=== PATIENT | male | born 1935 | race Caucasian/White ===

== ENCOUNTER 2017-09-27 17:49 | Emergency (ER) | payer MEDICARE, OTHER, SELFPAY ==
[2017-09-27 17:50] VITALS: BP 124/86; PULSE 73; RESP 18; TEMP 36.6; O2SAT 98; BMI 25.7
--- NOTE | 2017-09-27 17:52 | RAD_ITS ---
STUDY: X-RAY - RIGHT HAND, ATTENTION MIDDLE FINGER REASON FOR EXAM: Male, 82 years old. Trauma TECHNIQUE: 3 view(s) of the finger were obtained. COMPARISON: None. FINDINGS: No definite acute abnormality. Degenerative changes of the proximal and distal interphalangeal joints. Possible old ununited fracture of the dorsal base of the distal phalanx. 6 mm density overlying the tip of the finger could be small hematoma or blister. RAD/Finger(s) Min 2 Views IMPRESSION: No acute fractures or dislocation. Electronically Signed: Jakub Brandon MD at 18:40 EDT , Service support ,
[2017-09-27 19:25] VITALS: RESP 14
--- NOTE | 2017-09-27 19:25 | ED.VISSUMM ---
- ER Visit Summary Date of Service: 09/27/17 Chief Complaint: Right middle finger injury History of Present Illness: The patient is a 82 M presenting with injury to his right middle finger. He states he caught it between two barn beams. He has a skin avulsion/laceration to the right middle finger pad. Last tetanus was 12 years ago. He denies other complaints. He is on aspirin and Plavix. He is ambidextrous. Physical Examination: Vitals are stable. Patient is afebrile. Alert no acute distress. HEENT exam is unremarkable. Lungs are clear and equal bilaterally. Heart is regular rate and rhythm. Extremities right middle finger distal skin avulsion, 1 cm laceration to the finger pad, tendon function is intact. Active full range of motion. Skin is warm and dry. No focal neurologic deficit. Remainder of exam is unremarkable. Emergency Department Course and Treatment: Patient is given tetanus IM. Wound was irrigated. Anesthetized with lidocaine. 1, 5-0 simple suture was placed. Advised wound care instructions. Advised to follow-up with primary care physician. Advised return to ED if worsening complaints. Disposition: Discharge home Impression: Right middle finger skin avulsion, laceration, laceration repair This note was generated with [employer] dictation software. It may contain incorrect words, spelling, and punctuation that were not noted in review of the chart prior to signing ED Disposition - Plan for ED Patient: Chief Complaint: Laceration Instructions: ED Laceration Hand Referrals: Justin Leavitt MD [Primary Care Provider] -
--- NOTE | 2017-09-27 19:29 | ED.DEP ---
ED Disposition - Plan for ED Patient: Chief Complaint: Laceration Instructions: ED Laceration Hand Referrals: Justin Leavitt MD [Primary Care Provider] -
[2017-09-27] MEDS: Diphth,Pertuss(Acell),Tet Vac 0.5 ML Vial IM (19:46)
== END 2017-09-27 20:46 | disposition home or self-care (01) ==
LOC: ED 19:45
PROVIDERS: Emergency Provider Emergency Medicine; Family Provider Internal Medicine; PCP Internal Medicine
DX: S61.212A Laceration without foreign body of right middle finger without damage to nail, initial encounter (principal); W23.0XXA Caught, crushed, jammed, or pinched between moving objects, initial encounter; Y93.9 Activity, unspecified; Y92.9 Unspecified place or not applicable; Y99.9 Unspecified external cause status; Z23 Encounter for immunization; I11.0 Hypertensive heart disease with heart failure; I50.9 Heart failure, unspecified; Z79.02 Long term (current) use of antithrombotics/antiplatelets; Z79.82 Long term (current) use of aspirin; Z79.899 Other long term (current) drug therapy; Z85.72 Personal history of non-Hodgkin lymphomas
CPT/HCPCS: 73140; 90715; 99283

== ENCOUNTER 2018-09-02 18:17 | Inpatient (IN) | payer MEDICARE, OTHER, SELFPAY ==
[2018-03-26 15:42] VITALS: BMI 26.4
[2018-09-02] VITALS (7 sets, daily range): BP systolic 143–150; BP diastolic 73–102; PULSE 73–96; RESP 20–28; TEMP 36.5–37.3; O2SAT 92–97; BMI 27.4; BMI 26.5
--- NOTE | 2018-09-02 18:32 | EKG12_ITS ---
Test Reason : SOB Blood Pressure : / mmHG Vent. Rate : 092 BPM Atrial Rate : 101 BPM P-R Int : 000 ms QRS Dur : 112 ms QT Int : 374 ms P-R-T Axes : 000 087 019 degrees QTc Int : 462 ms Atrial fibrillation with premature ventricular or aberrantly conducted complexes Septal infarct (cited on or before 05-JUN-2015) Abnormal ECG Confirmed by ARLETTE HITCHCOCK, RENATO ([id number]), offline editor KIERSTEN INTERIANO ([id number]) on 09/03/2018 1:45:53 PM Referred By: Mary Lovell Confirmed By:RENATO CHONG MD
[2018-09-02] MEDS: Ipratropium/Albuterol Sulfate 3 ML AMPUL.NEB INHALATION (18:45)
[2018-09-02 18:58] LABS: Absolute Lymphocyte Count 0.36 X10^3/ul (0.83-4.51); Absolute Neutrophil Count 11.1 X10^3/uL (2.0-7.7); Eosinophil# 0.02 X10^3/uL; Eosinophils% 0.2 % (0-5); Hematocrit 42.5 % (40-54); Hemoglobin 14.3 g/dl (13.0-16.5); Lymphocyte # 0.36 X10^3/ul (4.0); Lymphocyte % 2.9 % (19-41); Mean Corp Hgb Conc 33.6 g/gl (32-36); Mean Corpuscular Hgb 31.9 pg (27.0-32.0); Mean Corpuscular Volume 94.9 fL (80-94); Mean Platelet Vol. 9.9 fl (6.2-12.0); Monocyte# 0.84 X10^3/uL; Monocyte% 6.8 % (0-10); Neutrophil # 11.07 X10^3/uL (2.7-7.7); Neutrophil % 89.9 % (47-70); Platelet Count 146 K/mm3 (150-450); RBC Distribution Width CV 14.6 % (11.6-14.6); RBC Distribution Width SD 50.4 fl (35.1-43.9); Red Blood Count 4.48 M/mm3 (4.6-6.2); White Blood Count 12.3 K/mm3 (4.4-11.0)
[2018-09-02 18:59] LABS: Differential Indicated SCAN CRITERIA MET; POSITIVE COUNT NO; POSITIVE DIFFERENTIAL YES; POSITIVE MORPHOLOGY NO
--- NOTE | 2018-09-02 19:00 | RAD_ITS ---
STUDY: X-RAY CHEST REASON FOR EXAM: Male, 83 years old. Cough shortness of breath TECHNIQUE: PA and lateral views of the chest. COMPARISON: June 19, 2016 FINDINGS: There is right lower lobe focal patchy opacity. There is no demonstrated pleural abnormality. Sternal cerclage wires are present from a prior sternotomy. Normal mediastinum and guillermo. Normal visualized pulmonary arteries. There is atherosclerotic calcification of the aortic arch with tortuosity. There are diffuse degenerative changes of the visualized thoracic spine. Normal visualized ribs, clavicles, and shoulders. There is no demonstrated abnormality of the visualized soft tissue structures of the upper abdomen. RAD/Chest PA and Lateral IMPRESSION: Right lower lobe patchy opacity consider pneumonia. Status post sternotomy. Chronic-appearing left lower lobe atelectasis. Electronically Signed: Marbella Lane MD at 20:28 EDT Tel , Service support ,
--- NOTE | 2018-09-02 19:03 | ED.VIS.GEN ---
History of Present Illness Chief Complaint: Shortness of Breath Informant: Patient Onset: Weeks Context: Gradual Onset Timing: Intermittent Current Severity: Moderate Maximum Severity: Severe Narrative: Patient presents to the emergency department with cough and shortness of breath. Patient said the symptoms for approximately the past 3 weeks. He recently traveled to [place] on a cruise. He states while there, he began to have a mild sore throat and cough. Since being back, his cough is gotten worse. He initially went to an outside emergency department at [facility]. He states that he had an x-ray which was normal. He was treated with doxycycline. He felt like his symptoms are getting worse. He followed up with a nurse practitioner and was placed on Augmentin. He states he finished it 2 days ago. Since then, he is had worsening cough. Today, he began to have a fever, chills, myalgias. Patient has a history of lymphoma. He is currently on a clinical trial of a chemotherapeutic that he takes orally once a day. He has been on this for 19 months. He is on Eliquis for history of atrial fibrillation. He denies any chest pain. Prior similar symptoms: Yes Recent Illness/Hospitalization: Yes Past Medical History - Allergies and Home Meds Allergies/Adverse Reactions: Allergies ramipril Allergy (Verified 09/02/18 18:17) Unknown Primary Care Physician: Justin Leavitt MD [Primary Care Provider] - Prior records reviewed: Yes Surgical History: - - cabg Smoking Status: Former smoker Alcohol: None Drugs: None - Family History Maternal Family History: Family History (Last Reviewed 03/26/18 @ 16:10 by Fran Sethi MD) Father CVA (cerebral vascular accident) Mother Diabetes CHF (congestive heart failure) Other Family history of CVA Family History: Reports: Diabetes, - - mother had chf Paternal Family History: Family History (Last Reviewed 03/26/18 @ 16:10 by Fran Sethi MD) Father CVA (cerebral vascular accident) Mother Diabetes CHF (congestive heart failure) Other Family history of CVA Family History: Reports: Diabetes, - - father had a stroke Review of Systems General: Reports: Chills, Fever Eyes: Denies: Visual changes - bilaterally, Diplopia ENT: Denies: Rhinorrhea, Sore throat Cardiovascular: Denies: Chest pain, Palpitations Respiratory: Reports: Dyspnea, Cough Gastrointestinal: Denies: Abdominal pain, Nausea, Vomiting, Diarrhea, Melena, Hematochezia Genitourinary: Denies: Dysuria, Hematuria, Frequency Musculoskeletal: Reports: Myalgias Skin: Denies: Rash, Wounds Neurological: Denies: Headache, Weakness, Numbness Physical Exam Vital Signs/Narrative: Vital Signs Temp Pulse Resp BP Pulse Ox 09/02/18 18:18 97.7 F L 96 20 H 150/73 H 92 Inital Vital Signs reviewed: Yes General: Well nourished, Well developed, No Acute Distress Head: Normocephalic, Atraumatic Eyes: Perrl, EOMI ENT: Moist mucous membranes, No rhinorrhea Neck: Supple, Nontender Cardiovascular: No murmurs, Irregular Respiratory: No distress, Chest nontender, Wheezing, Decreased Air Movement Abdomen: Soft, Nontender, Nondistended, Normal bowel sounds Back: Nontender, Normal Inspection Extremities: Nontender, No edema Skin: Normal color, No rash Neurological: Alert, Oriented x3, Cranial nerves II-XII grossly intact, Normal Strength, Normal Sensation Psychological: Normal affect, Normal Mood Diagnostic/Tx/Re-eval Chest X-Ray - ED: 2 View, Right Infiltrate Clinical Impression(s) from Imaging Studies Chest X-Ray 09/02/18 19:00 IMPRESSION: Right lower lobe patchy opacity consider pneumonia. Status post sternotomy. Chronic-appearing left lower lobe atelectasis. Electronically Signed: Marbella Lane MD at 20:28 EDT Tel , Service support , Abnormal Lab Results 09/02/18 09/02/18 09/02/18 18:41 18:41 18:41 WBC 12.3 H RBC 4.48 L Hgb 14.3 Hct 42.5 MCV 94.9 H MCH 31.9 MCHC 33.6 RDW 14.6 RDW Differential 50.4 H Plt Count 146 L MPV 9.9 Immature Gran % (Auto) 0.200 Neut % (Auto) 89.9 H Lymph % (Auto) 2.9 L [place] % (Auto) 6.8 Eos % (Auto) 0.2 Baso % (Auto) 0.0 Absolute Neuts (auto) 11.1 H Absolute Lymphs (auto) 0.36 L Total Counted Not Reportable Differential Comment Sodium 138 Potassium 3.5 Chloride 103 Carbon Dioxide 28.0 Anion Gap 7 BUN 11 Creatinine 0.88 Estim Creat Clear Calc 65.67 Est GFR (MDRD) Af Amer 107 Est GFR (MDRD) Non-Af 88 BUN/Creatinine Ratio 12.6 Glucose 113 H Lactic Acid 1.7 Calcium 8.8 Total Bilirubin 0.80 AST 38 H ALT 41 Alkaline Phosphatase 110 Total Protein 7.1 Albumin 3.4 Globulin 3.7 Albumin/Globulin Ratio 0.9 Urine Color Urine Clarity Urine pH Ur Specific [place] Urine Protein Urine Glucose (UA) Urine Ketones Urine Occult Blood Urine Nitrite Urine Bilirubin Urine Urobilinogen Ur Leukocyte Esterase Urine RBC Urine WBC Ur Squamous Epith Cells Urine Bacteria Urine Mucus 09/02/18 20:10 WBC RBC Hgb Hct MCV MCH MCHC RDW RDW Differential Plt Count MPV Immature Gran % (Auto) Neut % (Auto) Lymph % (Auto) [place] % (Auto) Eos % (Auto) Baso % (Auto) Absolute Neuts (auto) Absolute Lymphs (auto) Total Counted Differential Comment Sodium Potassium Chloride Carbon Dioxide Anion Gap BUN Creatinine Estim Creat Clear Calc Est GFR (MDRD) Af Amer Est GFR (MDRD) Non-Af BUN/Creatinine Ratio Glucose Lactic Acid Calcium Total Bilirubin AST ALT Alkaline Phosphatase Total Protein Albumin Globulin Albumin/Globulin Ratio Urine Color Yellow Urine Clarity Clear Urine pH 7.0 Ur Specific [place] 1.005 Urine Protein 15 H Urine Glucose (UA) Normal Urine Ketones Negative Urine Occult Blood 10 H Urine Nitrite Negative Urine Bilirubin Negative Urine Urobilinogen Normal Ur Leukocyte Esterase Negative Urine RBC 0-5 SEEN Urine WBC 0 SEEN Ur Squamous Epith Cells 0 SEEN Urine Bacteria 0 SEEN Urine Mucus 0 SEEN - Rhythm Strip Rhythm Strip: A-fib Ectopy: PVC(s) - EKG Follow-up EKG Interpretation: No Acute Injury Pattern, Atrial Fibrillation, Non-Specific ST Changes - Medical Decision Making Patient presents to the emergency department with cough, shortness of breath, productive sputum. He has been on 2 separate antibiotics for bronchitis. Once he finished the Levaquin, his symptoms returned. Today was the first day that he had a fever. The patient is also on an oral chemotherapeutic. Sepsis work-up was pursued. Patient does have a mild leukocytosis. He was given a nebulized breathing treatment with some improvement. His chest x-ray does confirm a right lower lobe infiltrate. Lactic acid was normal. EKG was atrial fibrillation which he has a history of. At this point, I do feel the patient has effectively failed outpatient treatment. He will be started on broad-spectrum aggressive coverage given his history of immunosuppression. He will be admitted at this time. ED Disposition - Plan for ED Patient: Disposition: Acute Care Hospital [facility] Diagnosis: Pneumonia, Immunosuppressed status Referrals: Justin Leavitt MD [Primary Care Provider] -
[2018-09-02 19:13] LABS: ALB/GLOB Ratio 0.9 RATIO (0.9-2.4); AST(SGOT) 38 U/L (15-37); Alanine Aminotransfer ALT/SGPT 41 U/L (16-61); Albumin, Serum 3.4 g/dL (3.2-5.0); Alkaline Phosphatase 110 U/L (45-117); Anion Gap 7 (5-15); BUN 11 mg/dL (7-18); BUN/Creat Ratio 12.6 RATIO (10-20); Calcium,Total 8.8 mg/dL (8.5-10.1); Chloride 103 mmol/L (98-107); Creatinine, Serum 0.88 mg/dL (0.70-1.30); EST Glomerular Filtration Rate 88 mL/min (>60); Est Glom Filt Rate - Afr Amer 107 mL/min (>60); Estimated Creatinine Clearance 65.67 ml/min; Globulin 3.7 g/dL (2.2-4.2); Glucose 113 mg/dL (74-106); Potassium 3.5 mmol/L (3.5-5.1); Protein, Total 7.1 g/dL (6.4-8.2); Sodium Level 138 mmol/L (136-145)
[2018-09-02 19:17] LABS: Lactic Acid 1.7 mmol/L (0.4-2.0)
[2018-09-02] MEDS: 0.9% Normal Saline 1,000 ML 1000 ML IV (19:33)
[2018-09-02 20:15] LABS: Bacteria 0 SEEN /hpf (None Seen); Mucous, Urine 0 SEEN /hpf (<or=2+); Squamous Epithelial Cells - UA 0 SEEN /hpf (0-5); White Blood Cells 0 SEEN /hpf (0-5)
[2018-09-02 20:20] LABS: Color, Urine Yellow (Yellow); Glucose, Dipstick Normal (Normal); Ketone-Dipstick Negative (Negative); Leukocyte Esterase-Dipstick Negative /ul (Negative); Nitrite-Dipstick Negative (Negative); Occult Blood-Urine 10 /ul (Negative); Protein-Dipstick 15 mg/dl (Negative); Specific Gravity, Urine 1.005 (1.002-1.030); Urine Bilirubin Dipstick Negative (Negative); Urine Clarity Clear (Clear); Urine Urobilinogen Normal (Normal)
[2018-09-02 20:27] LABS: Red Blood Cells-Urine 0-5 SEEN /hpf (0-5)
--- NOTE | 2018-09-02 22:09 | PCM.HP.STD ---
Problem List (1) Pneumonia Status: Acute (2) Immunosuppressed status Status: Chronic (3) Family history of CVA Status: Chronic (4) Afib Status: Chronic Qualifiers: Atrial fibrillation type: chronic Qualified Code(s): I48.2 - Chronic atrial fibrillation (5) Hx of CABG Status: Chronic Comment: 2009 (6) CAD (coronary artery disease) Status: Chronic (7) Lymphoma Status: Chronic (8) Syncope Status: Resolved (9) Hyperlipidemia Status: Chronic (10) Colon polyps Status: Chronic (11) Diverticulosis Status: Chronic (12) Obstructive sleep apnea Status: Chronic (13) Mitral valve prolapse Status: Chronic History of Present Illness Date of Admission: 09/02/18 Chief Complaint: cough, SOB The patient is a 83 year old M with a past medical history of chronic atrial fibrillation, hypertension, coronary artery disease, CABG in 2009, history of PTCA/stents, mitral valve prolapse, colon polyps, diverticulosis, lymphoma, obstructive sleep apnea and hyperlipidemia who presented to the emergency department at [facility] on 09/02/2018 complaining of cough for the preceding 3 weeks and shortness of breath. He recently traveled to [place] on a cruise ship and started with a mild sore throat and cough 3 weeks ago. He was initially diagnosed with bronchitis and placed on an antibiotic. He failed to improve and he was given a course of Levaquin however he continues to worsen. His sputum is purulent and blood-tinged. He is short of breath and weak. He has had a decreased appetite but denies nausea/vomiting/diarrhea. Vital signs at presentation to the emergency room were temperature 97.7, pulse rate 96, blood pressure 150/73, respiratory rate 20 and he was 92% saturated on room air. White blood cell count is elevated at 12.3 with 90% neutrophils. Hemoglobin is 14.3 and platelets are mildly decreased at 146,000. BMP is unremarkable. Lactic acid was 1.7. LFTs are within normal limits. UA had 0 WBCs. Chest x-ray shows right lower lobe pneumonia. Streptococcal and Legionella antigens in the urine are negative. Respiratory panel is pending. Sputum was obtained and GM stain and culture has been ordered. Blood cultures x2 were sent from the emergency department. He is being admitted to a monitored bed on PCU with a diagnosis of community-acquired pneumonia in an immunocompromised individual who has failed outpatient antibiotics. Past Medical History Past Medical History (Chronic Problems): Chronic Problems (Last Reviewed 09/03/18 @ 01:59 by Mary Lovell DO) Immunosuppressed status (Chronic) Hyperlipidemia (Chronic) Colon polyps (Chronic) Diverticulosis (Chronic) Obstructive sleep apnea (Chronic) Mitral valve prolapse (Chronic) Family history of CVA (Chronic) Afib (Chronic) Hx of CABG (Chronic) 2009 CAD (coronary artery disease) (Chronic) Lymphoma (Chronic) Medical History: Medical History (Last Reviewed 09/03/18 @ 01:59 by Mary Lovell DO) Afib (Chronic) I48.91 CAD (coronary artery disease) (Chronic) I25.10 Atherosclerotic heart disease of [place] coronary artery without angina pectoris I25.10 Atrial flutter I48.92 Cardiomegaly I51.7 Hyperlipidemia E78.5 Hypertension I10 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, 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 terminal 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 Z79.899 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.[address] Allergies ramipril Allergy (Verified 09/02/18 18:17) Unknown Home Medications: Ambulatory Orders Medication Instructions Recorded Atorvastatin Calcium [Lipitor] 80 mg PO QHS 06/06/15 Furosemide [Lasix] 20 mg PO DAILY 01/01/17 acyclovir 400 mg tablet 400 mg PO BID 04/26/17 sertraline 100 mg tablet 100 mg PO DAILY 04/26/17 sulfamethoxazole 800 1 tab PO MOWEFR 04/26/17 mg-trimethoprim 160 mg tablet losartan 25 mg tablet 25 mg PO DAILY #90 tab 03/18/18 apixaban 5 mg tablet 5 mg PO BID 03/26/18 Clopidogrel Bisulfate [Clopidogrel] 75 mg PO DAILY 09/02/18 Surgical History: Surgical History (Last Reviewed 09/03/18 @ 01:59 by Mary Lovell DO) Hx of CABG (Chronic) 2009 History of thoracic surgery Z98.890 VATS procedure at [facility] December [address] 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 in [place], [place]. (Dr. Plaza) Surgical History: - - cabg in 2009 Psychiatric History: No pertinent psych hx Lives: Spouse/ Significant Other Smoking Status: Former smoker Tobacco Use: Cigars, Pipe Alcohol: Occasional Drugs: None - *Family History Maternal Family History: Family History (Last Reviewed 09/03/18 @ 02:00 by Mary Lovell DO) Father CVA (cerebral vascular accident) Mother Diabetes CHF (congestive heart failure) Other Family history of CVA History Items: Diabetes, - - mother had chf Paternal Family History: Family History (Last Reviewed 09/03/18 @ 02:00 by Mary Lovell DO) Father CVA (cerebral vascular accident) Mother Diabetes CHF (congestive heart failure) Other Family history of CVA History Items: Diabetes, - - father had a stroke Review of Systems Constitutional: Reports: Anorexia, Malaise, Weakness. Denies: Chills, Fever, Weight Change HEENT: Reports: Sore Throat - initially but this has resolved. Denies: Head Aches, Sinus Congestion, Sinus Drainage Cardiovascular: Denies: Chest Pain, Palpitations Respiratory: Denies: Cough, Shortness of breath at rest, Sputum production Gastrointestinal: Denies: Abdominal Pain, Nausea, Vomiting Genitourinary: Denies: Dysuria Musculoskeletal: Denies: Joint Pain, Joint Tenderness Skin: Denies: Rash, Wounds Neurological: Denies: Numbness, Tingling, Focal weakness Psychiatric: Denies: Anxiety, Depression, Homicidal Ideations, Suicidal Ideations Hematologic/ Lymphatic: Denies: Easy Bruising, Easy Bleeding VTE Information - Inpt Only VTE Present on Admission: No VTE Mechan Device Prophylaxis: Knee High VANDANA Hose VTE Pharm Prophylaxis ordered?: No Reason prophylaxis not ordered:: Treatment Not Indicated - Patient is on Eliquis for atrial fibrillation Patient Problems: Active and Suspected Problems (Last Reviewed 09/03/18 @ 01:59 by Mary Lovell DO) Pneumonia (Acute) - Physical Exam General: Alert, Oriented x3, Cooperative, - - looks weak HEENT: Atraumatic, PERRLA, EOMI, Normocephalic Oral: Dry Mucosa Neck: Supple, No JVD, Negative Carotid Bruits, No Nodes, No Nuchal Rigidity, Trachea Midline Lungs: Rales - both bases, - - Symmetric chest rise, no accessory muscle use, no conversational dyspnea, Cardiovascular: Normal S1, Normal S2, Irregular Rate - tele shows Aflutter, Murmur - systolic at the apex and into the left axilla, No Gallop Abdomen: Bowel Sounds Present, Soft, Non Tender, Non-Distended Extremities: No edema, No Calf Tenderness, Peripheral Pulses Normal Skin: No rashes, No breakdown Neurological: Cranial nerves II-XII grossly intact, Neuro grossly intact Psych/Mental Status: Normal Affect, Appropriate Vital Signs Temp Pulse Resp BP Pulse Ox 98.8 F 77 27 H 145/75 H 97 09/02/18 19:45 09/02/18 21:10 09/02/18 21:10 09/02/18 19:45 09/02/18 21:10 Oxygen Flow Rate (L/min) 2 Oxygen Delivery Method Nasal Cannula Weight: 191 lb 5.78 oz Body Mass Index (BMI) 27.4 Laboratory Tests Past 24 Hrs 09/02/18 09/02/18 09/02/18 18:41 18:41 18:41 WBC 12.3 H RBC 4.48 L Hgb 14.3 Hct 42.5 MCV 94.9 H MCH 31.9 MCHC 33.6 RDW 14.6 RDW Differential 50.4 H Plt Count 146 L MPV 9.9 Immature Gran % (Auto) 0.200 Neut % (Auto) 89.9 H Lymph % (Auto) 2.9 L [place] % (Auto) 6.8 Eos % (Auto) 0.2 Baso % (Auto) 0.0 Absolute Neuts (auto) 11.1 H Absolute Lymphs (auto) 0.36 L Total Counted Not Reportable Differential Comment Sodium 138 Potassium 3.5 Chloride 103 Carbon Dioxide 28.0 Anion Gap 7 BUN 11 Creatinine 0.88 Estim Creat Clear Calc 65.67 Est GFR (MDRD) Af Amer 107 Est GFR (MDRD) Non-Af 88 BUN/Creatinine Ratio 12.6 Glucose 113 H Lactic Acid 1.7 Calcium 8.8 Total Bilirubin 0.80 AST 38 H ALT 41 Alkaline Phosphatase 110 Total Protein 7.1 Albumin 3.4 Globulin 3.7 Albumin/Globulin Ratio 0.9 Urine Color Urine Clarity Urine pH Ur Specific [place] Urine Protein Urine Glucose (UA) Urine Ketones Urine Occult Blood Urine Nitrite Urine Bilirubin Urine Urobilinogen Ur Leukocyte Esterase Urine RBC Urine WBC Ur Squamous Epith Cells Urine Bacteria Urine Mucus 09/02/18 20:10 WBC RBC Hgb Hct MCV MCH MCHC RDW RDW Differential Plt Count MPV Immature Gran % (Auto) Neut % (Auto) Lymph % (Auto) [place] % (Auto) Eos % (Auto) Baso % (Auto) Absolute Neuts (auto) Absolute Lymphs (auto) Total Counted Differential Comment Sodium Potassium Chloride Carbon Dioxide Anion Gap BUN Creatinine Estim Creat Clear Calc Est GFR (MDRD) Af Amer Est GFR (MDRD) Non-Af BUN/Creatinine Ratio Glucose Lactic Acid Calcium Total Bilirubin AST ALT Alkaline Phosphatase Total Protein Albumin Globulin Albumin/Globulin Ratio Urine Color Yellow Urine Clarity Clear Urine pH 7.0 Ur Specific [place] 1.005 Urine Protein 15 H Urine Glucose (UA) Normal Urine Ketones Negative Urine Occult Blood 10 H Urine Nitrite Negative Urine Bilirubin Negative Urine Urobilinogen Normal Ur Leukocyte Esterase Negative Urine RBC 0-5 SEEN Urine WBC 0 SEEN Ur Squamous Epith Cells 0 SEEN Urine Bacteria 0 SEEN Urine Mucus 0 SEEN Assessment/Plan All Active Problems (Last Reviewed 09/03/18 @ 01:59 by Mary Lovell DO) Pneumonia (Acute) Syncope (Resolved) Impressions 1. Community-acquired pneumonia in an immunocompromised patient with lymphoma. Failed outpatient therapy with Levaquin. 2. Lymphoma 3. Coronary artery disease with history of CABG in 2009 4. Chronic atrial fibrillation 5. Chronic anticoagulation with Eliquis 6. Mitral valve prolapse 7. History of vocal cord surgery 8. Hyperlipidemia 9. History of colon polyps 10. History of diverticulosis 11. SNOYA on CPAP 12. Hypertension Urine for streptococcal antigen Urine for Legionella antigen Respiratory panel Sputum for Gram stain C&S Blood cultures ?2 Mucinex 1200 mg twice daily Aerosolized bronchodilators Incentive spirometry Since the patient failed outpatient Levaquin and is immunocompromised will start Vanco and Merrem until culture results are available Continue Eliquis MRSA nasal swab Supplemental oxygen per protocol Ambulatory pulse ox prior to DC Code Visit Inpatient E&M: [id number] Init Hosp L3
[2018-09-03] VITALS (13 sets, daily range): BP systolic 111–132; BP diastolic 45–75; PULSE 58–90; RESP 14–20; TEMP 36.5–37.5; O2SAT 93–96
[2018-09-03] MEDS: Acyclovir 200 MG Capsule 400 MG PO ×3 (00:24→22:28)
[2018-09-03] MEDS: APIXABAN 5 MG TABLET PO ×3 (00:24→22:27)
[2018-09-03] MEDS: Atorvastatin Calcium 80 MG Tablet PO ×2 (00:24→22:27)
[2018-09-03] MEDS: Ipratropium/Albuterol Sulfate 3 ML AMPUL.NEB INHALATION ×4 (00:59→20:06)
[2018-09-03 06:24] LABS: M R Staph aureus DNA By PCR Negative (Negative); Probe Check PASS; Specimen Processing Control PASS
--- NOTE | 2018-09-03 10:53 | CASEMGMT ---
SW notified patient and his that patient's Healthcare POA and Healthcare LW are not on file at [facility]. Emeli PINTO MSW
[2018-09-03] MEDS: Sertraline 100 MG Tablet PO (11:10)
[2018-09-03] MEDS: Clopidogrel Bisulfate 75 MG Tablet PO (11:10)
[2018-09-03] MEDS: guaiFENesin 1,200 MG Tablet 1200 MG PO ×2 (11:10→22:28)
[2018-09-03] MEDS: Losartan Potassium 25 MG Tablet PO (11:10)
--- NOTE | 2018-09-03 11:30 | NS ---
Per WANG Nicholas, states pt is lactose intolerant and is concerned about Ensure Enlive as ordered. Ensure Enlive is suitable for lactose intolerance. Ingredient list for Ensure Enlive provided to pt's . No further concerns at this time. Allyson Dobbs MS, RDN, LD
[2018-09-03] MEDS: Oseltamivir Phosphate 75 MG Capsule PO ×2 (11:33→22:28)
[2018-09-03] MEDS: levoFLOXacin 750 MG Tablet PO (11:33)
--- NOTE | 2018-09-03 13:52 | PCM.CONS.PUL ---
Problem List (1) Pneumonia Status: Acute Qualifiers: Pneumonia type: due to influenza A virus Laterality: right Lung location: lower lobe of lung Qualified Code(s): J11.00 - Influenza due to unidentified influenza virus with unspecified type of pneumonia (2) Immunosuppressed status Status: Chronic (3) Colon polyps Status: Chronic (4) Diverticulosis Status: Chronic (5) Obstructive sleep apnea Status: Chronic (6) Mitral valve prolapse Status: Chronic (7) Family history of CVA Status: Chronic (8) Afib Status: Chronic Qualifiers: Atrial fibrillation type: chronic Qualified Code(s): I48.2 - Chronic atrial fibrillation (9) Hx of CABG Status: Chronic Comment: 2009 (10) CAD (coronary artery disease) Status: Chronic (11) Lymphoma Status: Chronic Reason for Consult Date of Consultation: 09/03/18 Reason for Consultation: Pneumonia History of Present Illness: The patient is a 83 year old M, with past medical history listed below, who presented to [facility] on 09/02/2018 secondary to increased cough and shortness of breath. Patient reportedly had had symptoms for the last 3 weeks. Patient states that 3 weeks ago he was on a cruise to [place] and started to develop some rhinorrhea and sore throat. By time he came back he was developing a cough. Patient had gone to an outside emergency department and had a chest x-ray that was normal. Patient was placed on doxycycline, but felt he was getting worse so after 2 days he was transitioned to Augmentin. Patient is also been on Levaquin recently. Patient began to have fever, chills and myalgia and so presented for evaluation. Patient is currently immunosuppressed with an experimental chemotherapeutic drug at the [facility]. Patient reportedly has been on this for 19 months and takes Bactrim prophylaxis. Patient does have a history of atrial fibrillation, for which he takes Eliquis, but does not report any increased lower extremity edema recently. No orthopnea is was reported. In the emergency department, patient was noted to be tachypneic and having a cough productive of green-yellow sputum. Sepsis work-up was pursued and patient was given an albuterol with some improvement. Chest x-ray did show a right lower lobe infiltrate and patient was admitted to the floor with suspicion of failed outpatient treatment. Since being on the floor, patient has required 2 L nasal cannula to maintain saturations. Patient denies any subjective change in his overall condition. Patient is still having paroxysmal type cough with intermittent production. Patient has come back positive with influenza A and is on respiratory isolation. Patient does report a brief smoking history. Patient does drink socially, 2-3 drinks per week, but denies any illicit drug use. 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 Patient denies any exposure to TB or asbestos. Patient has not had any dysuria, nausea or vomiting. Patient does report intermittent left lower extremity swelling, but this is typically resolved by morning. This has not changed recently. Patient denies ever having pulmonary function testing or seeing a clinical pharmacy manager. Patient does not have a history of asthma or using inhalers in the past. Past Medical History Past Medical History (Chronic Problems): Chronic Problems (Last Reviewed 09/03/18 @ 01:59 by Mary Lovell DO) Immunosuppressed status (Chronic) Hyperlipidemia (Chronic) Colon polyps (Chronic) Diverticulosis (Chronic) Obstructive sleep apnea (Chronic) Mitral valve prolapse (Chronic) Family history of CVA (Chronic) Afib (Chronic) Hx of CABG (Chronic) 2009 CAD (coronary artery disease) (Chronic) Lymphoma (Chronic) Medical History: Medical History (Last Reviewed 09/03/18 @ 01:59 by Mary Lovell DO) Afib (Chronic) I48.91 CAD (coronary artery disease) (Chronic) I25.10 Atherosclerotic heart disease of [place] coronary artery without angina pectoris I25.10 Atrial flutter I48.92 Cardiomegaly I51.7 Hyperlipidemia E78.5 Hypertension I10 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, 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 [facility] use of drug Z79.899 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.2 3 Inferior lateral NE Allergies ramipril Allergy (Verified 09/02/18 18:17) Unknown Home Medications: Ambulatory Orders Medication Instructions Recorded Atorvastatin Calcium [Lipitor] 80 mg PO QHS 06/06/15 Furosemide [Lasix] 20 mg PO DAILY 01/01/17 acyclovir 400 mg tablet 400 mg PO BID 04/26/17 sertraline 100 mg tablet 100 mg PO DAILY 04/26/17 sulfamethoxazole 800 1 tab PO MOWEFR 04/26/17 mg-trimethoprim 160 mg tablet losartan 25 mg tablet 25 mg PO DAILY #90 tab 03/18/18 apixaban 5 mg tablet 5 mg PO BID 03/26/18 Clopidogrel Bisulfate [Clopidogrel] 75 mg PO DAILY 09/02/18 Surgical History: Surgical History (Last Reviewed 09/03/18 @ 01:59 by Mary Lovell DO) Hx of CABG (Chronic) 2009 History of thoracic surgery Z98.890 VATS procedure at [facility] December [address] 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 (Dr. Plaza) Surgical History: - - cabg in 2009 Psychiatric History: No pertinent psych hx Lives: Spouse/ Significant Other Smoking Status: Former smoker Tobacco Use: Cigars, Pipe Alcohol: Occasional Drugs: None - *Family History Maternal Family History: Family History (Last Reviewed 09/03/18 @ 02:00 by Mary Lovell DO) Father CVA (cerebral vascular accident) Mother Diabetes CHF (congestive heart failure) Other Family history of CVA History Items: Diabetes, - - mother had chf Paternal Family History: Family History (Last Reviewed 09/03/18 @ 02:00 by Mary Lovell DO) Father CVA (cerebral vascular accident) Mother Diabetes CHF (congestive heart failure) Other Family history of CVA History Items: Diabetes, - - father had a stroke Review of Systems Comment: See HPI, otherwise negative x10 systems Patient Problems: Active and Suspected Problems (Last Reviewed 09/03/18 @ 01:59 by Mary Lovell DO) Pneumonia (Acute) Objective: All imaging was personally reviewed. Patient does have a history of pronounced hilar blood vessels, but may have a right lower lobe infiltrate on recent chest x-ray. Echocardiogram from 1 year ago showed an EF of 51% with dilated right ventricle and severely dilated left atria. 3+ MR reported with the regurgitant orifice of 0.4 cm?. This was not significantly changed compared to December 2016. - Physical Exam General: Alert, Oriented x3, Cooperative, No apparent distress, - - Mild conversational dyspnea. HEENT: Atraumatic, PERRLA, EOMI, Normocephalic, - - Hard of hearing. Hearing aids not in place. Oral: Moist Mucosa, No Gingival or Mucosal Lesions/ Ulcerations Neck: Supple, No JVD, No Nodes, Trachea Midline Lungs: No rales, Diminished, Rhonchi - Improved with cough, Wheezes Cardiovascular: Normal S1, Normal S2, Irregular Rate, Murmur, No rub noted, No Gallop Abdomen: Bowel Sounds Present, Soft, Non Tender, Non-Distended Extremities: No cyanosis, No edema, Clubbing - Stage I Skin: No rashes, No breakdown Musculoskeletal: No Tenderness to Palpation of Joints or Extremities, No Muscle Wasting Lymphatic: No Cervical, Supraclavicular, or Inguinal Adenopathy Neurological: Cranial nerves II-XII grossly intact, Neuro grossly intact, Motor Exam 5/5 strength throughout Psych/Mental Status: Alert and oriented to time, place, person, mood and affect Vital Signs Temp Pulse Resp BP Pulse Ox 36.6 C 58 L 16 115/59 L 93 09/03/18 11:02 09/03/18 11:23 09/03/18 11:02 09/03/18 11:02 09/03/18 11:02 Oxygen Flow Rate (L/min) 2 Oxygen Delivery Method Nasal Cannula Weight: 86.3 kg Body Mass Index (BMI) 26.5 Intake and Output for Last 24 Hours 09/01/18 09/02/18 09/03/18 23:59 23:59 23:59 Intake Total 702 / 702 Balance 702 / 702 Microbiology Past 72 Hours 09/03/18 00:20 Respiratory Panel (PCR) - Final Mucosa - Nose Influenza A (Subtype H3) 09/03/18 00:29 Gram Stain - Final Sputum, Expectorated/Coughed 09/02/18 20:10 Streptococcus pneumoniae Antigen (M - Final Urine, Random 09/02/18 20:10 Legionella Antigen - Final Urine, Random Laboratory Tests Past 24 Hrs 09/02/18 09/02/18 09/02/18 18:41 18:41 18:41 WBC 12.3 H RBC 4.48 L Hgb 14.3 Hct 42.5 MCV 94.9 H MCH 31.9 MCHC 33.6 RDW 14.6 RDW Differential 50.4 H Plt Count 146 L MPV 9.9 Immature Gran % (Auto) 0.200 Neut % (Auto) 89.9 H Lymph % (Auto) 2.9 L [place] % (Auto) 6.8 Eos % (Auto) 0.2 Baso % (Auto) 0.0 Absolute Neuts (auto) 11.1 H Absolute Lymphs (auto) 0.36 L Total Counted Not Reportable Differential Comment Sodium 138 Potassium 3.5 Chloride 103 Carbon Dioxide 28.0 Anion Gap 7 BUN 11 Creatinine 0.88 Estim Creat Clear Calc 65.67 Est GFR (MDRD) Af Amer 107 Est GFR (MDRD) Non-Af 88 BUN/Creatinine Ratio 12.6 Glucose 113 H Lactic Acid 1.7 Calcium 8.8 Total Bilirubin 0.80 AST 38 H ALT 41 Alkaline Phosphatase 110 Total Protein 7.1 Albumin 3.4 Globulin 3.7 Albumin/Globulin Ratio 0.9 Urine Color Urine Clarity Urine pH Ur Specific [place] Urine Protein Urine Glucose (UA) Urine Ketones Urine Occult Blood Urine Nitrite Urine Bilirubin Urine Urobilinogen Ur Leukocyte Esterase Urine RBC Urine WBC Ur Squamous Epith Cells Urine Bacteria Urine Mucus MRSA (PCR) 09/02/18 09/03/18 20:10 04:57 WBC RBC Hgb Hct MCV MCH MCHC RDW RDW Differential Plt Count MPV Immature Gran % (Auto) Neut % (Auto) Lymph % (Auto) [place] % (Auto) Eos % (Auto) Baso % (Auto) Absolute Neuts (auto) Absolute Lymphs (auto) Total Counted Differential Comment Sodium Potassium Chloride Carbon Dioxide Anion Gap BUN Creatinine Estim Creat Clear Calc Est GFR (MDRD) Af Amer Est GFR (MDRD) Non-Af BUN/Creatinine Ratio Glucose Lactic Acid Calcium Total Bilirubin AST ALT Alkaline Phosphatase Total Protein Albumin Globulin Albumin/Globulin Ratio Urine Color Yellow Urine Clarity Clear Urine pH 7.0 Ur Specific [place] 1.005 Urine Protein 15 H Urine Glucose (UA) Normal Urine Ketones Negative Urine Occult Blood 10 H Urine Nitrite Negative Urine Bilirubin Negative Urine Urobilinogen Normal Ur Leukocyte Esterase Negative Urine RBC 0-5 SEEN Urine WBC 0 SEEN Ur Squamous Epith Cells 0 SEEN Urine Bacteria 0 SEEN Urine Mucus 0 SEEN MRSA (PCR) Negative Clinical Impression(s) from Imaging Studies Chest X-Ray 09/02/18 19:00 IMPRESSION: Right lower lobe patchy opacity consider pneumonia. Status post sternotomy. Chronic-appearing left lower lobe atelectasis. Electronically Signed: Marbella Lane MD at 20:28 EDT Tel , Service support , Assessment/Plan All Active Problems (Last Reviewed 09/03/18 @ 01:59 by Mary Lovell DO) Pneumonia (Acute) Syncope (Resolved) RECOMMENDATIONS: 1. Transition antibiotics to meropenem 2. Okay to continue bronchodilators, but would not recommend steroids 3. Await sputum culture 4. Would not recommend diuretic therapy at this time IMPRESSIONS: 1. Acute hypoxic respiratory insufficiency secondary to influenza A Patient does appear to have a right lower lobe infiltrate. Given 3 weeks duration, there is some concern for possible superinfection despite multiple antibiotics previously. Patient's MRSA swab was negative, so reasonable to hold off on vancomycin. However, broad-spectrum beta-lactam would be indicated given failure of outpatient therapy. Sputum culture is currently pending. Likely narrow antibiotic spectrum once culture data is available. Encourage Acapella and incentive spirometer. Wean oxygen as tolerated. Patient is already on mucolytic. 2. Chronic A. fib/chronic cor pulmonale secondary to MR Patient appears to be doing well at this time from a cardiac standpoint. Patient does not have significant lower extremity edema to suggest volume overload. Patient is on baseline diuretic therapy. Continue to monitor. Patient does have significant MR reported 1 year ago. 3. CAD/hyperlipidemia/history of colon polyps/lymphoma on experimental drug/SONYA on CPAP/hypertension/advanced age Complicates care, management, recovery and prognosis. Patient should be continued on baseline SONYA therapy. Okay to continue antihypertensive medications from my perspective. We will need to contact the [facility] to evaluate for possible interactions with experimental drug and antibiotics. Code Visit Inpatient E&M: 95461 Init Hosp L3
--- NOTE | 2018-09-03 14:17 | CASEMGMT ---
This RN CM to room to complete CM assessment and pt/ are sleeping without distress. Pt/ do not awaken to knock on door or verbal stimuli at this time. Will attempt again later. SStaten RN CM
[2018-09-03] MEDS: 0.9% NaCl Peripheral Flush Adult/Peds IV ×3 (15:28→22:28)
[2018-09-03] MEDS: Sodium Chloride 0.65% 1 SPRAY SPRAY.BTL 2 SPRAY NASAL (16:26)
--- NOTE | 2018-09-03 20:24 | PN_ITS ---
Patient Problems: Active and Suspected Problems (Last Reviewed 09/03/18 @ 01:59 by Mary Lovell DO) Pneumonia (Acute) Subjective: She was seen and examined today, he was admitted yesterday for right lower lobe pneumonia which she had been resistant to outpatient treatment. Patient had been on oral Levaquin and had also been briefly on doxycycline. Patient is currently in a trial regarding lymphoma patients and chronically takes Bactrim for prophylaxis of pneumonia. Patient states he has been coughing up thick pu rulent type sputum over the past 3 weeks, he was diagnosed as having bronchitis initially and was placed on doxycycline and then this was changed to Levaquin. Patient states he completed 7 days treatment of Levaquin 5 days ago. Patient was given meropenem and vancomycin in the emergency room. Patient resulted positive today for influenza A H3 subtype, I have consulted pulmonary medicine to help in his care while in the hospital. I discussed the case briefly with pulmonary medicine today. Patient was started on Tamiflu today. Legionella antigen and strep pneumoniae antigen was negative. - Physical Exam General: Alert, Oriented x3, Cooperative, No apparent distress, Well developed, Well nourished HEENT: Atraumatic, PERRLA, EOMI, Normocephalic Oral: Moist Mucosa Neck: Supple, Trachea Midline, Thyroid Normal Size and Texture Lungs: Clear to auscultation, Normal air movement, No rhonchi, No wheeze, No rales, Diminished, Rales - There are inspiratory rales noted over the left and right lung bases Cardiovascular: Regular rate, Regular Rhythm, Normal S1, Normal S2, No murmurs, No Ectopic Activity, PMI Normal, No rub noted Abdomen: Bowel Sounds Present, Soft, Non Tender Extremities: No edema, Capillary Refill Less than 3 Seconds Skin: No rashes, No breakdown Musculoskeletal: No Tenderness to Palpation of Joints or Extremities Neurological: Cranial nerves II-XII grossly intact, Neuro grossly intact, Sensory exam intact to light touch and pain, Coordination normal Psych/Mental Status: Normal Affect, Appropriate, Alert and oriented to time, place, person, mood and affect Vital Signs Temp Pulse Resp BP Pulse Ox 98.8 F 76 17 113/59 L 96 09/03/18 18:04 09/03/18 18:55 09/03/18 18:55 09/03/18 18:04 09/03/18 18:55 Oxygen Flow Rate (L/min) 2 Oxygen Delivery Method Room Air Weight: 86.3 kg Body Mass Index (BMI) 26.5 Intake and Output for Last 24 Hours 09/01/18 09/02/18 09/03/18 23:59 23:59 23:59 Intake Total 1971 Balance 1971 Microbiology Past 72 Hours 09/03/18 00:20 Respiratory Panel (PCR) - Final Mucosa - Nose Influenza A (Subtype H3) 09/03/18 00:29 Gram Stain - Final Sputum, Expectorated/Coughed 09/02/18 20:10 Streptococcus pneumoniae Antigen (M - Final Urine, Random 09/02/18 20:10 Legionella Antigen - Final Urine, Random Laboratory Tests Past 24 Hrs 09/02/18 09/03/18 20:10 04:57 Urine RBC 0-5 SEEN Urine WBC 0 SEEN Ur Squamous Epith Cells 0 SEEN Urine Bacteria 0 SEEN Urine Mucus 0 SEEN MRSA (PCR) Negative Medical Necessity - Tobacco Use Smoking Status: Former smoker Tobacco Use: Cigars, Pipe Assessment/Plan All Active Problems (Last Reviewed 09/03/18 @ 01:59 by Mary Lovell DO) Pneumonia (Acute) Syncope (Resolved) #1 community-acquired pneumonia in a patient currently being treated for lymph linda-pulmonary medicine will see the patient, I have deferred antibiotics to pulmonary medicine, patient will be placed on meropenem 500 mg every 8, await sputum culture results #2 influenza A-H3 subtype-patient was placed on Tamiflu #3 coronary artery disease #4 chronic atrial fibrillation-continue home medications #5 cardiomyopathy-etiology unclear #6 hyperlipidemia Code Visit Inpatient E&M: 92220 Subs Hosp L2
[2018-09-04] VITALS (13 sets, daily range): BP systolic 125–142; BP diastolic 72–76; PULSE 63–73; RESP 13–18; TEMP 36.6–37.2; O2SAT 94–99
[2018-09-04] MEDS: Ipratropium/Albuterol Sulfate 3 ML AMPUL.NEB INHALATION ×4 (01:18→18:46)
[2018-09-04] MEDS: 0.9% NaCl Peripheral Flush Adult/Peds IV ×4 (05:59→21:01)
[2018-09-04 07:11] LABS: Absolute Lymphocyte Count 0.33 X10^3/ul (0.83-4.51); Absolute Neutrophil Count 4.7 X10^3/uL (2.0-7.7); Basophil# 0.01 X10^3/uL; Basophil% 0.2 % (0-1); Eosinophil# 0.08 X10^3/uL; Eosinophils% 1.4 % (0-5); Hematocrit 35.5 % (40-54); Hemoglobin 11.6 g/dl (13.0-16.5); Lymphocyte # 0.33 X10^3/ul (4.0); Lymphocyte % 5.9 % (19-41); Mean Corp Hgb Conc 32.7 g/gl (32-36); Mean Corpuscular Hgb 31.4 pg (27.0-32.0); Mean Corpuscular Volume 96.2 fL (80-94); Monocyte# 0.54 X10^3/uL; Monocyte% 9.6 % (0-10); Neutrophil # 4.66 X10^3/uL (2.7-7.7); Neutrophil % 82.7 % (47-70); Platelet Count 111 K/mm3 (150-450); RBC Distribution Width CV 14.7 % (11.6-14.6); RBC Distribution Width SD 48.9 fl (35.1-43.9); Red Blood Count 3.69 M/mm3 (4.6-6.2); White Blood Count 5.6 K/mm3 (4.4-11.0)
[2018-09-04 07:13] LABS: Differential Indicated SCAN CRITERIA MET; POSITIVE COUNT NO; POSITIVE DIFFERENTIAL YES; POSITIVE MORPHOLOGY NO
[2018-09-04] MEDS: Smz/Tmp Ds Tablet 1 TABLET PO (07:30)
[2018-09-04] MEDS: Clopidogrel Bisulfate 75 MG Tablet PO (07:31)
[2018-09-04] MEDS: Acyclovir 200 MG Capsule 400 MG PO ×2 (07:31→21:01)
[2018-09-04] MEDS: guaiFENesin 1,200 MG Tablet 1200 MG PO ×2 (07:31→21:01)
[2018-09-04] MEDS: Sertraline 100 MG Tablet PO (07:31)
[2018-09-04] MEDS: Losartan Potassium 25 MG Tablet PO (07:31)
[2018-09-04] MEDS: Oseltamivir Phosphate 75 MG Capsule PO ×2 (07:32→21:01)
[2018-09-04] MEDS: APIXABAN 5 MG TABLET PO ×2 (07:32→21:01)
[2018-09-04] MEDS: Furosemide 20 MG Tablet PO (07:39)
[2018-09-04 08:05] LABS: Anion Gap 6 (5-15); BUN 11 mg/dL (7-18); BUN/Creat Ratio 15.7 RATIO (10-20); Calcium,Total 8.2 mg/dL (8.5-10.1); Chloride 108 mmol/L (98-107); EST Glomerular Filtration Rate 115 mL/min (>60); Est Glom Filt Rate - Afr Amer 139 mL/min (>60); Estimated Creatinine Clearance 59.61 ml/min; Glucose 113 mg/dL (74-106); Potassium 3.4 mmol/L (3.5-5.1); Sodium Level 144 mmol/L (136-145)
--- NOTE | 2018-09-04 09:57 | PN_ITS ---
Patient Problems: Active and Suspected Problems (Last Reviewed 09/03/18 @ 01:59 by Mary Lovell DO) Pneumonia (Acute) Subjective: Patient significantly improved compared to yesterday. Patient has been weaned to room air and states cough is much improved compared to previous. Patient is reporting less dyspnea. Did call Hollie ([phone]) to discuss patient's experimental drug. No drug drug interactions were reported. She is going to obtain medical records for trial reporting. There reportedly is some concern with pneumonitis with this drug in the past. However, patient has been on this for years without complications. - Physical Exam General: Alert, Oriented x3, Cooperative, No apparent distress, Well developed, Well nourished, - - No conversational dyspnea. HEENT: Atraumatic, PERRLA, EOMI, Normocephalic, - - No scleral icterus or inj ection noted. Oral: Moist Mucosa, No Gingival or Mucosal Lesions/ Ulcerations Neck: Supple, No JVD, No Nodes, Trachea Midline Lungs: No rhonchi, No rales, Diminished, Wheezes - Sporadic Cardiovascular: Normal S1, Normal S2, No murmurs, Irregular Rate, No rub noted, No Gallop Abdomen: Bowel Sounds Present, Soft, Non Tender, Non-Distended Extremities: No clubbing, No cyanosis, No edema, Capillary Refill Less than 3 Seconds Skin: No rashes, No breakdown Musculoskeletal: No Tenderness to Palpation of Joints or Extremities Lymphatic: No Cervical, Supraclavicular, or Inguinal Adenopathy Neurological: Cranial nerves II-XII grossly intact, Neuro grossly intact, Motor Exam 5/5 strength throughout Psych/Mental Status: Alert and oriented to time, place, person, mood and affect Vital Signs Temp Pulse Resp BP Pulse Ox 36.6 C 67 13 142/76 H 94 09/04/18 07:41 09/04/18 07:41 09/04/18 07:41 09/04/18 07:41 09/04/18 07:41 Oxygen Flow Rate (L/min) 2 Oxygen Delivery Method Room Air Weight: 86.3 kg Body Mass Index (BMI) 26.5 Intake and Output for Last 24 Hours 09/02/18 09/03/18 09/04/18 23:59 23:59 23:59 Intake Total 2317 / 2317 30 / 30 Balance 2318 / 2318 Microbiology Past 72 Hours 09/03/18 00:20 Respiratory Panel (PCR) - Final Mucosa - Nose Influenza A (Subtype H3) 09/03/18 00:29 Gram Stain - Final Sputum, Expectorated/Coughed 09/02/18 20:10 Streptococcus pneumoniae Antigen (M - Final Urine, Random 09/02/18 20:10 Legionella Antigen - Final Urine, Random Laboratory Tests Past 24 Hrs 09/04/18 09/04/18 06:35 06:35 WBC 5.6 RBC 3.69 L Hgb 11.6 L Hct 35.5 L MCV 96.2 H MCH 31.4 MCHC 32.7 RDW 14.7 H RDW Differential 48.9 H Plt Count 111 L MPV 10.0 Immature Gran % (Auto) 0.200 Neut % (Auto) 82.7 H Lymph % (Auto) 5.9 L [place] % (Auto) 9.6 Eos % (Auto) 1.4 Baso % (Auto) 0.2 Absolute Neuts (auto) 4.7 Absolute Lymphs (auto) 0.33 L Total Counted Not Reportable Sodium 144 Potassium 3.4 L Chloride 108 H Carbon Dioxide 30.0 Anion Gap 6 BUN 11 Creatinine 0.70 Estim Creat Clear Calc 59.61 Est GFR (MDRD) Af Amer 139 Est GFR (MDRD) Non-Af 115 BUN/Creatinine Ratio 15.7 Glucose 113 H Calcium 8.2 L Medical Necessity - Tobacco Use Smoking Status: Former smoker Tobacco Use: Cigars, Pipe Assessment/Plan All Active Problems (Last Reviewed 09/03/18 @ 01:59 by Mary Lovell DO) Pneumonia (Acute) Syncope (Resolved) RECOMMENDATIONS: 1. Continue meropenem until sputum culture results 2. Okay to continue bronchodilators, but would not recommend steroids 3. Walking oximetry prior to discharge 4. Would not recommend diuretic therapy at this time IMPRESSIONS: 1. Acute hypoxic respiratory insufficiency secondary to influenza A Patient does appear to have a right lower lobe infiltrate. Given 3 weeks duration, there is some concern for possible superinfection despite multiple antibiotics previously. Patient's MRSA swab was negative, so reasonable to hold off on vancomycin. Patient appears to have responded abruptly to the initiation of meropenem. Patient is on room air, but will need a walking oximetry prior to discharge. Discussion with [facility] oncology does report pneumonitis in the past with experimental drug, but I doubt this is the presenting etiology given patient's influenza A positive. 2. Chronic A. fib/chronic cor pulmonale secondary to MR Patient appears to be doing well at this time from a cardiac standpoint. Patient does not have significant lower extremity edema to suggest volume overload. Patient is on baseline diuretic therapy. Continue to monitor. Patient does have significant MR reported 1 year ago. 3. CAD/hyperlipidemia/history of colon polyps/lymphoma on experimental drug/SONYA on CPAP/hypertension/advanced age Complicates care, management, recovery and prognosis. Patient should be continued on baseline SONYA therapy. Okay to continue antihypertensive medications from my perspective. We will need to contact the [facility] to evaluate for possible interactions with experimental drug and antibiotics. Code Visit Inpatient E&M: 44548 Subs Hosp L2
--- NOTE | 2018-09-04 11:06 | CASEMGMT ---
WANG STEWART assessment: Face to Face with patient for initial transition planning/care coordination assessment. WANG STEWART introduced self and role at [facility], pt voices understanding and consents to assessment at this time. Pt is sitting up in chair in no distress at this time. Pt is A/Ox4 at this time and answers all questions appropriately at this time. Care providers, pharmacy, and demographics verified at this time. PCP: [facility] Special[facility]: Matthew, onc; Jossei, cardio; Luis A, cardio Preferred Pharmacy: [facility] mail order Insurance: MCR/MMO Prescription Benefit: [employer] Living Will/HPOA: Pt states has LW/HPOA and is aware that they are not currently on file at [facility] at this time. Pt states that his , Jo Amador, is HPOA. LNOK: Jo Amador, Living Arrangements: Pt states lives with in [facility] and states no concerns at home at this time. Pt states that there are stairs but that there is also an elevator. Pt states is independent with ADL's. Transportation: Pt states drives self and states no transportation concerns at this time. DME/HHC: Pt states has a cpap thru [employer] and states no need for any further DME at this time. Pt states no hx of HHC or SNF in the past. Pt states no concerns with going home at time of discharge. Pt states is retired. Pt states does not smoke but does drink ETOH occasionally. Pt states no further questions/concerns/needs at this time. CM to follow for any further discharge planning/needs. Advised pt to ask for CM if any further questions/concerns/needs arise, voices understanding. Pt Goal: Home Plan: Home [place] WANG STEWART
--- NOTE | 2018-09-04 17:05 | PCM.PROGNOTE ---
Patient Problems: Active and Suspected Problems (Last Reviewed 09/03/18 @ 01:59 by Mary Lovell DO) Pneumonia (Acute) Subjective: Patient was seen and examined today, he states his cough is improved, he feels better and he is off oxygen. Sputum culture is pending - Physical Exam General: Alert, Oriented x3, Cooperative, No apparent distress, Well developed, Well nourished HEENT: Atraumatic, PERRLA, EOMI, Normocephalic Oral: Moist Mucosa Neck: Supple, Trachea Midline, Thyroid Normal Size and Texture Lungs: Clear to auscultation, Normal air movement, No rhonchi, No wheeze, Rales - Inspiratory rales are noted at the bases bilaterally Cardiovascular: PMI Normal, Irregular Rate, No rub noted Abdomen: Bowel Sounds Present, Soft, Non Tender, Non-Distended Extremities: No clubbing, No cyanosis, No edema, Capillary Refill Less than 3 Seconds Skin: No rashes, No breakdown Musculoskeletal: No Tenderness to Palpation of Joints or Extremities Neurological: Cranial nerves II-XII grossly intact, Neuro grossly intact, Sensory exam intact to light touch and pain, Coordination normal Psych/Mental Status: Normal Affect, Appropriate, Alert and oriented to time, place, person, mood and affect Vital Signs Temp Pulse Resp BP Pulse Ox 97.8 F 65 15 125/72 H 97 09/04/18 14:21 09/04/18 14:58 09/04/18 14:21 09/04/18 14:21 09/04/18 14:21 Oxygen Flow Rate (L/min) 2 Oxygen Delivery Method Room Air Weight: 86.3 kg Body Mass Index (BMI) 26.5 Intake and Output for Last 24 Hours 09/02/18 09/03/18 09/04/18 23:59 23:59 23:59 Intake Total 2318 / 2318 585 / 585 Balance 2318 / 2318 585 / 585 Microbiology Past 72 Hours 09/03/18 00:29 Gram Stain - Final Sputum, Expectorated/Coughed Respiratory Culture - Preliminary Appears to be normal respiratory beatriz. Further studies to follow. 09/03/18 00:20 Respiratory Panel (PCR) - Final Mucosa - Nose Influenza A (Subtype H3) 09/02/18 20:10 Streptococcus pneumoniae Antigen (M - Final Urine, Random 09/02/18 20:10 Legionella Antigen - Final Urine, Random Laboratory Tests Past 24 Hrs 09/04/18 09/04/18 06:35 06:35 WBC 5.6 RBC 3.69 L Hgb 11.6 L Hct 35.5 L MCV 96.2 H MCH 31.4 MCHC 32.7 RDW 14.7 H RDW Differential 48.9 H Plt Count 111 L MPV 10.0 Immature Gran % (Auto) 0.200 Neut % (Auto) 82.7 H Lymph % (Auto) 5.9 L [place] % (Auto) 9.6 Eos % (Auto) 1.4 Baso % (Auto) 0.2 Absolute Neuts (auto) 4.7 Absolute Lymphs (auto) 0.33 L Total Counted Not Reportable Sodium 144 Potassium 3.4 L Chloride 108 H Carbon Dioxide 30.0 Anion Gap 6 BUN 11 Creatinine 0.70 Estim Creat Clear Calc 59.61 Est GFR (MDRD) Af Amer 139 Est GFR (MDRD) Non-Af 115 BUN/Creatinine Ratio 15.7 Glucose 113 H Calcium 8.2 L Medical Necessity - Tobacco Use Smoking Status: Former smoker Tobacco Use: Cigars, Pipe Assessment/Plan All Active Problems (Last Reviewed 09/03/18 @ 01:59 by Mary Lovell DO) Pneumonia (Acute) Syncope (Resolved) #1 community-acquired pneumonia in a patient currently being treated for lymphoma-patient will remain on meropenem for now, sputum culture pending #2 influenza A-H3 subtype-patient remains on Tamiflu #3 coronary artery disease #4 chronic atrial fibrillation-continue home medications #5 cardiomyopathy-etiology unclear #6 hyperlipidemia #7 lymphoma Code Visit Inpatient E&M: 42586 Subs Hosp L2
[2018-09-04] MEDS: Atorvastatin Calcium 80 MG Tablet PO (21:01)
[2018-09-05] VITALS (8 sets, daily range): BP systolic 132–139; BP diastolic 70–74; PULSE 39–86; RESP 16–18; TEMP 36.5–36.9; O2SAT 94–95
[2018-09-05] MEDS: 0.9% NaCl Peripheral Flush Adult/Peds IV (05:08)
[2018-09-05] MEDS: Ipratropium/Albuterol Sulfate 3 ML AMPUL.NEB INHALATION ×2 (06:35→13:23)
--- NOTE | 2018-09-05 08:33 | PCM.PN.PUL ---
Patient Problems: Active and Suspected Problems (Last Reviewed 09/03/18 @ 01:59 by Mary Lovell DO) Pneumonia (Acute) Subjective: Patient did well overnight. Patient continues to have a periodic cough, but states this is much improved compared to previous. Patient has been on room air. Patient denies any current chest pain. - Physical Exam General: Alert, Oriented x3, Cooperative, No apparent distress, Well developed, Well nourished, - - Speaking in full sentences. HEENT: Atraumatic, PERRLA, EOMI, Normocephalic, - - No scleral icterus or injection noted. Oral: Moist Mucosa, No Gingival or Mucosal Lesions/ Ulcerations Neck: Supple, No JVD, No Nodes, Trachea Midline Lungs: Clear to auscultation, Normal air movement, No rhonchi, No wheeze, No rales, - - Symmetric expansion. No dullness to percussion. Cardiovascular: Regular rate, Regular Rhythm, Normal S1, Normal S2, No murmurs, No rub noted, No Gallop Abdomen: Bowel Sounds Present, Soft, Non Tender, Non-Distended Extremities: No clubbing, No cyanosis, No edema Skin: No rashes, No breakdown Musculoskeletal: No Tenderness to Palpation of Joints or Extremities Lymphatic: No Cervical, Supraclavicular, or Inguinal Adenopathy Neurological: Cranial nerves II-XII grossly intact, Neuro grossly intact, Motor Exam 5/5 strength throughout Psych/Mental Status: Alert and oriented to time, place, person, mood and affect Vital Signs Temp Pulse Resp BP Pulse Ox 36.8 C 70 16 139/70 H 94 09/05/18 05:04 09/05/18 07:21 09/05/18 06:35 09/05/18 05:04 09/05/18 05:04 Oxygen Flow Rate (L/min) 2 Oxygen Delivery Method Room Air Weight: 86.3 kg Body Mass Index (BMI) 26.5 Intake and Output for Last 24 Hours 09/03/18 09/04/18 09/05/18 23:59 23:59 23:59 Intake Total 2318 / 2318 1632 / 1632 224 / 224 Balance 2318 / 2318 1632 / 1632 224 / 224 Microbiology Past 72 Hours 09/03/18 00:29 Gram Stain - Final Sputum, Expectorated/Coughed Respiratory Culture - Preliminary Appears to be normal respiratory beatriz. Further studies to follow. 09/03/18 00:20 Respiratory Panel (PCR) - Final Mucosa - Nose Influenza A (Subtype H3) 09/02/18 20:10 Streptococcus pneumoniae Antigen (M - Final Urine, Random 09/02/18 20:10 Legionella Antigen - Final Urine, Random Medical Necessity - Tobacco Use Smoking Status: Former smoker Tobacco Use: Cigars, Pipe Assessment/Plan All Active Problems (Last Reviewed 09/03/18 @ 01:59 by Mary Lovell DO) Pneumonia (Acute) Syncope (Resolved) RECOMMENDATIONS: 1. Consider transition to Omnicef and complete a 7-day course of antibiotics 2. Okay to continue bronchodilators, but would not recommend steroids 3. Walking oximetry prior to discharge 4. Would not recommend diuretic therapy at this time 5. Okay to discharge from pulmonary perspective IMPRESSIONS: 1. Acute hypoxic respiratory insufficiency secondary to influenza A Patient does appear to have a right lower lobe infiltrate. Given 3 weeks duration, there is some concern for possible superinfection despite multiple antibiotics previously. Patient's MRSA swab was negative, so reasonable to hold off on vancomycin. Patient's culture has come back as normal beatriz. Patient has responded very well to meropenem, but transition to Omnicef to complete 7 total days of antibiotics would be appropriate. Likely okay to discharge from pulmonary perspective. 2. Chronic A. fib/chronic cor pulmonale secondary to MR Patient appears to be doing well at this time from a cardiac standpoint. Patient does not have significant lower extremity edema to suggest volume overload. Patient is on baseline diuretic therapy. Continue to monitor. Patient does have significant MR reported 1 year ago. 3. CAD/hyperlipidemia/history of colon polyps/lymphoma on experimental drug/SONYA on CPAP/hypertension/advanced age Complicates care, management, recovery and prognosis. Patient should be continued on baseline SONYA therapy. Okay to continue antihypertensive medications from my perspective. We will need to contact the [facility] to evaluate for possible interactions with experimental drug and antibiotics. Code Visit Inpatient E&M: 91027 Subs Hosp L2
[2018-09-05] MEDS: Oseltamivir Phosphate 75 MG Capsule PO (10:09)
[2018-09-05] MEDS: Acyclovir 200 MG Capsule 400 MG PO (10:09)
[2018-09-05] MEDS: guaiFENesin 1,200 MG Tablet 1200 MG PO (10:09)
[2018-09-05] MEDS: Clopidogrel Bisulfate 75 MG Tablet PO (10:09)
[2018-09-05] MEDS: Furosemide 20 MG Tablet PO (10:09)
[2018-09-05] MEDS: Sertraline 100 MG Tablet PO (10:09)
[2018-09-05] MEDS: APIXABAN 5 MG TABLET PO (10:09)
[2018-09-05] MEDS: Losartan Potassium 25 MG Tablet PO (10:10)
--- NOTE | 2018-09-05 12:39 | RAD_ITS ---
STUDY: X-RAY CHEST REASON FOR EXAM: Male, 83 years old. Cough and shortness of breath. TECHNIQUE: PA and lateral views of the chest. COMPARISON: Comparison is made with prior examination dated September 02, 2018. FINDINGS: EKG electrodes are seen. Stable elevation of the right hemidiaphragm. Mild improvement in the right basilar infiltrate. Stable scarring and/or atelectasis at the left lung base. There is blunting of the left costophrenic angle. Sternal cerclage wires and vascular clips are present from a prior sternotomy and coronary artery bypass graft procedure (CABG). Normal mediastinum and guillermo. Normal visualized pulmonary arteries. There is atherosclerotic calcification of the aortic arch with tortuosity. There are diffuse degenerative changes of the visualized thoracic spine. Normal visualized ribs, clavicles, and shoulders. There is no demonstrated abnormality of the visualized soft tissue structures of the upper abdomen. RAD/Chest PA and Lateral IMPRESSION: Since prior study, there has been improved aeration of the right lung base. Residual linear markings are seen at the left lung base with blunting of the left costophrenic angle. Electronically Signed: Dionisio Mason, at 14:22 EDT , Service support ,
--- NOTE | 2018-09-05 14:28 | DCINST_ITS ---
- Discharge Diagnoses Current Active Problems: Current Active and Chronic Problems (Last Reviewed 09/03/18 @ 01:59 by Mary Lovell DO) Pneumonia (Acute) Immunosuppressed status (Chronic) Hyperlipidemia (Chronic) Colon polyps (Chronic) Diverticulosis (Chronic) Obstructive sleep apnea (Chronic) Mitral valve prolapse (Chronic) You will use the following diet at home:: No restrictions Your food should be the consistency of: Regular Your liquids should be the consistency of: Regular/Thin Discharge Activity: Return to Normal Activity Weight Bearing Status: Full weight bearing Allergies/Adverse Reactions: Allergies ramipril Allergy (Verified 09/02/18 18:17) Unknown Medications to take at Discharge Atorvastatin Calcium [Lipitor] 80 mg PO QHS 06/06/15 Furosemide [Lasix] 20 mg PO DAILY 01/01/17 acyclovir 400 mg tablet 400 mg PO BID 04/26/17 sertraline 100 mg tablet 100 mg PO DAILY 04/26/17 sulfamethoxazole 800 mg-trimethoprim 160 mg tablet 1 tab PO MOWEFR 04/26/17 losartan 25 mg tablet 25 mg PO DAILY #90 tab 03/18/18 apixaban 5 mg tablet 5 mg PO BID 03/26/18 Clopidogrel Bisulfate [Clopidogrel] 75 mg PO DAILY 09/02/18 Naina-401 1 cap PO DAILY 09/03/18 Cefdinir [Omnicef [equiv]] 300 mg PO BID #11 cap 09/05/18 Oseltamivir Phosphate [Tamiflu] 75 mg PO BID #7 cap 09/05/18 The following prescriptions were given: Cefdinir [Omnicef [equiv]] 300 mg PO BID #11 cap Transmission Status: Pending to [facility] Oseltamivir Phosphate [Tamiflu] 75 mg PO BID #7 cap Transmission Status: Pending to [facility] [address] Primary Care Physician: Justin Leavitt MD [Primary Care Provider] - Please follow up with your Primary Care Physician in: in 2 weeks Test Results: Test results from this visit will be discussed in further detail at your follow- up appointment, if applicable.
--- NOTE | 2018-09-05 17:53 | PCM.DC.SUM ---
Discharge Date and Diagnosis Date of Admission: 09/02/18 Date of Discharge: 09/05/18 - Primary Discharge Diagnosis #1 right lower lobe community-acquired pneumonia, probably gram-positive bacterial #2 influenza A infection #3 pulmonary fibrosis #4 coronary artery disease #5 chronic atrial fibrillation #6 hypoxia secondary to #1 - Secondary Discharge Diagnosis Chronic Problems (Last Reviewed 09/03/18 @ 01:59 by Mary Lovell DO) Immunosuppressed status (Chronic) Hyperlipidemia (Chronic) Colon polyps (Chronic) Diverticulosis (Chronic) Obstructive sleep apnea (Chronic) Mitral valve prolapse (Chronic) Family history of CVA (Chronic) Afib (Chronic) Hx of CABG (Chronic) 2009 CAD (coronary artery disease) (Chronic) Lymphoma (Chronic) Hospital Course and Treatment Imaging Results: 09/05/18 12:39 Chest PA and Lateral [RAD] Routine Operations: None Procedures: None Summary of Care Provided: The patient is a 83 year old M who was seen in the emergency room at [facility] with a chief complaint of shortness of breath, he had been sick for approximately 3 weeks and had been placed on 2 different courses of antibiotics including doxycycline and Levaquin, he had just finished a 7-day course of Levaquin that ended approximately 4 days ago. Patient states he is bringing up yellow sputum, day he was seen in the emergency room he complained of fever, chills, and myalgias. Patient has a history of lymphoma and is on experimental chemotherapeutic medication from the [facility]. He takes Bactrim and acyclovir for prophylaxis. Work-up in the emergency room included a white blood cell count was slightly elevated at 12.3, patient's chemistry panel was unremarkable, urinalysis was unremarkable. Patient had a chest x-ray which showed evidence of a right lower lobe infiltrate. Patient was felt to have community-acquired pneumonia and he was given meropenem and vancomycin in the emergency room due to his history of lymphoma. He was admitted to PCU, I evaluated the patient the next day and felt that he needed input from pulmonary medicine who recommended the patient remain on meropenem for coverage. Patient's respiratory panel resulted in positive influenza A H3 infection, patient was placed on Tamiflu. Patient had been on nasal cannula oxygen for short period of time during his hospitalization, he was weaned off oxygen to room air the day after he was admitted. On 09/05/2018, patient was seen and examined: On examination he appeared in good health and spirits. Vital signs as documented. Skin warm and dry and without overt rashes. Neck without JVD. Lungs-inspiratory rales are noted at the bases bilaterally. Heart exam notable for irregular rhythm, no rubs noted . Abdomen unremarkable and without evidence of organomegaly, masses, or abdominal aortic enlargement. Extremities nonedematous. Neuro: Cranial nerves II through XII are grossly intact, no focal motor deficits were noted, sensation to light touch and pinprick intact. Psych: Patient is alert and oriented x3, he does not appear anxious or depressed I feel the patient has a component of scattered pulmonary fibrosis-chest CT reports from his physician's office revealed presence of some nodular densities and pulmonary fibrosis on previous CT scans of the chest. Patient's sputum culture grew out only normal beatriz. On 09/05/2018, patient was discharged home in stable condition - Physical Exam Vital Signs Temp Pulse Resp BP Pulse Ox 97.7 F L 72 18 135/71 H 95 09/05/18 10:00 09/05/18 13:23 09/05/18 13:23 09/05/18 10:00 09/05/18 10:00 Oxygen Flow Rate (L/min) 2 Oxygen Delivery Method Room Air Weight: 86.3 kg Body Mass Index (BMI) 26.5 Intake and Output for Last 24 Hours 09/03/18 09/04/18 09/05/18 23:59 23:59 23:59 Intake Total 2318 / 2318 1632 / 1632 704 / 704 Balance 2318 / 2318 1632 / 1632 704 / 704 Microbiology Past 72 Hours 09/02/18 18:47 Blood Culture - Preliminary Blood Culture (Wb) - Anticubital Left No growth in 48 hours. 09/02/18 18:41 Blood Culture - Preliminary Blood Culture (Wb) - Anticubital Right No growth in 48 hours. 09/03/18 00:29 Gram Stain - Final Sputum, Expectorated/Coughed Respiratory Culture - Final Mixed normal respiratory beatriz. No Streptococcus pneumoniae, beta-hemolytic Streptococcus or Staphylococcus aureus isolated. 09/03/18 00:20 Respiratory Panel (PCR) - Final Mucosa - Nose Influenza A (Subtype H3) 09/02/18 20:10 Streptococcus pneumoniae Antigen (M - Final Urine, Random 09/02/18 20:10 Legionella Antigen - Final Urine, Random Discharge Activity: Return to Normal Activity Weight Bearing Status: Full weight bearing Home Medications: Medications to take at Discharge Atorvastatin Calcium [Lipitor] 80 mg PO QHS 06/06/15 Furosemide [Lasix] 20 mg PO DAILY 01/01/17 acyclovir 400 mg tablet 400 mg PO BID 04/26/17 sertraline 100 mg tablet 100 mg PO DAILY 04/26/17 sulfamethoxazole 800 mg-trimethoprim 160 mg tablet 1 tab PO MOWEFR 04/26/17 losartan 25 mg tablet 25 mg PO DAILY #90 tab 03/18/18 apixaban 5 mg tablet 5 mg PO BID 03/26/18 Clopidogrel Bisulfate [Clopidogrel] 75 mg PO DAILY 09/02/18 Naina-401 1 cap PO DAILY 09/03/18 Cefdinir [Omnicef [equiv]] 300 mg PO BID #11 cap 09/05/18 Oseltamivir Phosphate [Tamiflu] 75 mg PO BID #7 cap 09/05/18 Following Prescrptions Were Given to Patient: Cefdinir [Omnicef [equiv]] 300 mg PO BID #11 cap Transmission Status: Received by [facility] Oseltamivir Phosphate [Tamiflu] 75 mg PO BID #7 cap Transmission Status: [facility] Primary Care Physician: Justin Leavitt MD [Primary Care Provider] - Please follow up with your Primary Care Physician in: in 2 weeks Please Follow Up With: Justin Leavitt MD Disposition: Home Minutes spent on discharge:: 32 Patient Condition:: Stable Medical Necessity - Tobacco Use Smoking Status: Former smoker Tobacco Use: Cigars, Pipe Meaningful Use Info Meaningful Use Diagnoses (Choose all that apply): None applicable Code Visit Inpatient E&M: 70120 Disch Hosp
--- NOTE | 2018-09-06 11:08 | CASEMGMT ---
Addendum entered by Paz Zapata 09/06/18 11:52: This RN CM received call back from pt at this time and he states that he is 'doing great' since discharge. Pt states 'I feel much better.' Pt states no questions regarding discharge instructions/medications at this time. Pt states has f/u appt's scheduled and plans to keep. Pt states that care was 'pretty good' but he had concerns regarding floor being dirty and that sheets were not changed while he was here. Concerns to [facility] director at this time. Pt voices no further questions/concerns/needs at this time. Amauri PIÑA CM Original Note: RN CM Discharge F/U Phone Call LACE: 11 Strata: 3 Discharge date: Call date: 09/06/18 Call time: 1110 Attempted to reach pt without success at this time, message left with pt to call this RN TERRY back if/when able. Amauri PIÑA CM Admission dx: CAP w/ failed OP, Aflutter
== END 2018-09-05 15:19 | disposition home or self-care (01) | DRG 194 ==
LOC: ED 20:54 → PCU 22:47
PROVIDERS: Internal Medicine Critical Care Medicine; Admitting Provider Internal Medicine; Emergency Provider Emergency Medicine; Family Provider Internal Medicine; PCP Internal Medicine; Referring Provider Internal Medicine; Visit Provider Internal Medicine
DX: J10.08 Influenza due to other identified influenza virus with other specified pneumonia (principal); C85.90 Non-Hodgkin lymphoma, unspecified, unspecified site; J15.9 Unspecified bacterial pneumonia; I25.10 Atherosclerotic heart disease of native coronary artery without angina pectoris; I48.2 Chronic atrial fibrillation; E78.5 Hyperlipidemia, unspecified; I10 Essential (primary) hypertension; G47.33 Obstructive sleep apnea (adult) (pediatric); R09.02 Hypoxemia; I34.1 Nonrheumatic mitral (valve) prolapse; J84.10 Pulmonary fibrosis, unspecified; Z79.01 Long term (current) use of anticoagulants; Z95.1 Presence of aortocoronary bypass graft; Z79.899 Other long term (current) drug therapy; Z86.010 Personal history of colon polyps; Z87.891 Personal history of nicotine dependence
CPT/HCPCS: 36415; 71046; 80048; 80053; 81001; 83605; 85025; 87040; 87070; 87205; 87449; 87633; 87641; 93005; 94640; 94667; 94668; 97802; 99285; J2185; J7030; A4216

== ENCOUNTER → 2018-11-27 15:40 | Outpatient (CLI) | payer MEDICARE, OTHER, SELFPAY ==
[2018-09-24 13:00] VITALS: BMI 26.3
--- NOTE | 2018-11-27 15:44 | RAD_ITS ---
STUDY: X-RAY - RIGHT HAND REASON FOR EXAM: Male, 83 years old. Inflammatory polyarthropathy. TECHNIQUE: 3 view(s) of the hand. COMPARISON: None. FINDINGS: There is joint space narrowing of the radiocarpal articulation consistent with degenerative arthrosis. Normal distal radioulnar joint. Normal visualized carpal bones. There is degenerative joint disease of the scaphotrapezium / trapezoid articulation. The remainder of the carpal articulations are normal. Normal carpometacarpal articulation of the thumb. Normal second through fifth carpometacarpal joints. Normal metacarpi. There is degenerative arthrosis of the metacarpophalangeal (MCP) joints. Normal interphalangeal joint of the thumb. Normal proximal and distal phalanges of the thumb. Normal metacarpophalangeal joints of the second through fifth fingers. There are degenerative changes of the proximal and distal interphalangeal joints of the second through fifth fingers. Normal phalanges of the second through fifth fingers. The soft tissue structures are unremarkable. RAD/Hand Min 3 Views IMPRESSION: Degenerative joint disease of the hand and wrist, as described above. Electronically Signed: Stephanie Kelly MD at 16:14 EDT Tel , Service support ,
--- NOTE | 2018-11-27 15:44 | RAD_ITS ---
STUDY: X-RAY - LEFT HAND REASON FOR EXAM: Male, 83 years old. Inflammatory polyarthropathy. TECHNIQUE: 3 view(s) of the hand. COMPARISON: None. FINDINGS: There is joint space narrowing of the radiocarpal articulation consistent with degenerative arthrosis. Normal distal radioulnar joint. Normal visualized carpal bones. Normal carpal articulations There is degenerative arthrosis of the carpometacarpal (CMC) articulation of the thumb. Normal second through fifth carpometacarpal joints. Normal metacarpi. There is degenerative arthrosis of the metacarpophalangeal (MCP) joints. There is degenerative arthrosis of the interphalangeal joint of the thumb with articular joint space narrowing. Normal proximal and distal phalanges of the thumb. There are degenerative changes of the second metacarpophalangeal joint. There are degenerative changes of the proximal and distal interphalangeal joints of the second through fifth fingers. Normal phalanges of the second through fifth fingers. The soft tissue structures are unremarkable. RAD/Hand Min 3 Views IMPRESSION: Degenerative joint disease of the hand and wrist, as described above. Electronically Signed: Stephanie Kelly MD at 16:24 EDT Tel , Service support ,
[2018-11-27 17:37] LABS: Absolute Neutrophil Count 4.4 X10^3/uL (2.0-7.7); Basophil# 0.03 X10^3/uL; Basophil% 0.5 % (0-1); Eosinophils% 3.6 % (0-5); Hematocrit 39.5 % (40-54); Hemoglobin 12.6 g/dL (13.0-16.5); Lymphocyte % 7.1 % (19-41); Mean Corp Hgb Conc 31.9 g/dL (32-36); Mean Corpuscular Hgb 31.3 pg (27.0-32.0); Mean Platelet Vol. 10.4 fl (6.2-12.0); Monocyte# 0.62 X10^3/uL; NRBC Flagged by Analyzer 0 % (0-5); Neutrophil # 4.35 X10^3/uL (2.7-7.7); Neutrophil % 77.4 % (47-70); POSITIVE DIFFERENTIAL YES; Platelet Count 182 K/mm3 (150-450); RBC Distribution Width CV 14.7 % (11.6-14.6); RBC Distribution Width SD 53.6 fl (35.1-43.9); Red Blood Count 4.03 M/mm3 (4.6-6.2); White Blood Count 5.6 K/mm3 (4.4-11.0)
[2018-11-27 17:46] LABS: Differential Indicated SCAN CRITERIA MET
[2018-11-27 18:16] LABS: AST(SGOT) 31 U/L (15-37); Alanine Aminotransfer ALT/SGPT 34 U/L (16-61); Albumin, Serum 3.3 g/dL (3.2-5.0); Alkaline Phosphatase 96 U/L (45-117); Anion Gap 7 (5-15); BUN 12 mg/dL (7-18); BUN/Creat Ratio 12.8 RATIO (10-20); Calcium,Total 8.5 mg/dL (8.5-10.1); Chloride 106 mmol/L (98-107); Creatinine, Serum 0.94 mg/dL (0.70-1.30); EST Glomerular Filtration Rate 82 mL/min (>60); Est Glom Filt Rate - Afr Amer 99 mL/min (>60); Globulin 3.4 g/dL (2.2-4.2); Glucose 129 mg/dL (74-106); Protein, Total 6.7 g/dL (6.4-8.2); Rheumatoid Factor < 10.0 IU/mL (<15); Sodium Level 142 mmol/L (136-145)
[2018-11-27 18:21] LABS: Differential Comment SCANNED; Erythrocyte Sedimentation Rate 16 mm/hr (0-20)
[2018-11-28 11:21] LABS: Hepatitis B Surface Antibody Non-Reactive; Hepatitis B Surface Antigen Non-Reactive (Nonreactive); Hepatitis C Antibody Non-Reactive (Nonreactive)
[2018-11-29 13:11] LABS: ANTINUCLEAR ANTIBODIES DIRECT Negative (Negative)
[2018-11-30 06:07] LABS: QNTFERON TB Mitogen Value > 10.00 IU/mL (.); QNTFERON TB Nil Value 0.03 IU/mL (.); QNTFERON TB1+ Ag Value 0.05 IU/mL (.); QNTFERON TB2+ Ag Value 0.03 IU/mL (.)
[2018-12-02 13:55] LABS: CCP IgG Antibodies 8 units (0-19); Hepatitis B Core AB IgM Negative (Negative); QNTIFERON TB Positive Criteria Negative (Negative)
== END ==
PROVIDERS: Family Provider Internal Medicine; PCP Internal Medicine; Referring Provider Internal Medicine Rheumatology; Visit Provider Internal Medicine Rheumatology
DX: M06.4 Inflammatory polyarthropathy (principal); C82.90 Follicular lymphoma, unspecified, unspecified site; I25.10 Atherosclerotic heart disease of native coronary artery without angina pectoris; I48.91 Unspecified atrial fibrillation
CPT/HCPCS: 36415; 73130; 80053; 85025; 85652; 86038; 86140; 86200; 86431; 86480; 86705; 86706; 86803; 87340

== ENCOUNTER 2019-02-14 10:57 | Day surgery (SDC) | payer MEDICARE, OTHER, SELFPAY ==
--- NOTE | 2019-01-28 06:44 | HP_ITS ---
Intake Vital Signs 01/28/19 Body Mass Index (BMI) 26.3 01/28/19 Height 5 ft 9 in 01/28/19 Weight: 195 lb 3 oz 01/28/19 Body Mass Index (BMI) 28.8 01/28/19 Blood Pressure 137/72 H 01/28/19 Blood Pressure Location Rt brachial 01/28/19 Blood Pressure Position Sitting 01/28/19 Respiratory Rate 20 H 01/28/19 Pulse Rate 87 01/28/19 Pulse Ox 99 Intake Visit Reasons: R CARPAL TUNNEL, EMG @ [facility] Chief Complaint: right carpal tunnel Liner Worker Required: No Is patient in pain?: Yes Allergies No Known Allergies Allergy (Verified 01/28/19 14:01) Medications Atorvastatin Calcium [Lipitor] 80 mg PO QHS 06/06/15 [History Confirmed 01/28/19] Furosemide [Lasix] 20 mg PO DAILY 01/01/17 [History Confirmed 01/28/19] acyclovir 400 mg tablet 400 mg PO BID 04/26/17 [History Confirmed 01/28/19] sertraline 100 mg tablet 100 mg PO DAILY 04/26/17 [History Confirmed 01/28/19] sulfamethoxazole 800 mg-trimethoprim 160 mg tablet 1 tab PO MOWEFR 04/26/17 [History Confirmed 01/28/19] losartan 25 mg tablet 25 mg PO DAILY #90 tab 03/18/18 [Rx Confirmed 01/28/19] Clopidogrel Bisulfate [Clopidogrel] 75 mg PO DAILY 09/02/18 [History Confirmed 01/28/19] Naina-401 1 cap PO DAILY 09/03/18 [History Confirmed 01/28/19] apixaban 5 mg tablet 5 mg PO BID #180 tab 01/01/19 [Rx Confirmed 01/28/19] fluticasone propionate 50 mcg/actuation nasal spray,suspension 2 spray INTRANASAL DAILY 01/28/19 [History Confirmed 01/28/19] [facility] Medical History Persistent atrial fibrillation (Chronic) Non-rheumatic mitral regurgitation (Chronic) Essential (primary) hypertension (Chronic) Ischemic cardiomyopathy (Chronic) Atrial flutter (Chronic) Hyperlipidemia (Chronic) Atherosclerosis of coronary 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) Hyperlipidemia (Chronic) Colon polyps (Chronic) Diverticulosis (Chronic) Immunosuppressed status (Chronic) Obstructive sleep apnea (Chronic) Old myocardial infarction (Chronic) Nonrheumatic mitral (valve) prolapse (Ruled-out) Paroxysmal atrial fibrillation (Inactive) Surgical History History of coronary artery stent placement (Resolved 05/12/14) H/O coronary artery bypass surgery (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 Rather complicated 83-year-old gentleman. For 5 months he has had rapidly progressive right carpal tunnel symptoms. He has constant numbness of the right second third and fourth digits. He has decreased fine motor control. He has loss of cv rn strength. He has been evaluated by orthopedic surgeon Dr. Yan Pruitt. Nerve conduction tests were obtained on December 02, 2018. Findings demonstrate right median neuropathy at or distal wrist consistent with clinical diagnosis of carpal tunnel syndrome severe in degree of electricity based upon absent right median nerve sensory response. No similar findings on the left. No findings of right cervical radiculopathy. The patient states that he has received a steroid injection in his right hand temporary relief. He is frustrated he has not been able to pursue definitive treatment. He has been on chemotherapy for lymphoma which is felt to possibly secondary to inflammatory changes apparently the dorsum of the right hand. He is placed on more than one prednisone taper. He is currently on prednisone therapy. He has been seen by more than 1 take away worker and apparently there was a question about possible rheumatoid arthritis which seems currently less likely. He has an oncoming appointment with [facility] oncology and rheumatology. He is currently on prednisone 10 mg daily which is supposed to be decreased to 5 mg daily next week To complicate matters significantly he is on both clopidogrel and apixaban. His local brand specialist is Dr. Fran Sethi [facility] General General: Yes weight change; no appetite, fatigue, colon cancer, breast cancer or weakness HEENT HEENT: Yes eye surgery; no difficulty swallowing, eye injury, swollen glands or hoarseness Endo Endocrine: No thyroid disease, diabetes mellitus, thyroid cancer, Hair loss, heat intolerance or cold intolerance Musc Musculoskeletal: Yes arthritis; no back problems, rheumatoid arthritis, gout or joint pain Cardio Cardiovascular: Yes heart disease, atrial fibrillation, high blood pressure, heart attack and heart stent; no murmur, pacemaker, palpitations, shortness of breat with exertion or chest pain Resp Respiratory: No shortness of breath, Yes sleep apnea, No cough, No COPD, No asthma, No emphysema, No wheezing Gastro Gastrointestinal: No abdominal pain, No nausea or vomiting, No diarrhea, No constipation, No blood in stool, No acid reflux, No hemorrhoids, No ulcers, No gallbladder problem, No black,tarry stools Alfie Hematologic: Yes blood thinners, No blood disorders, No bleeding, No anemia, No blood clots Neuro Neurologic: No weakness Exam Const General: cooperative, healthy appearing, comfortable, no acute distress Nutritional Appearance: average body habitus Orientation: alert, awake HENWV Head: normal to inspection Resp Effort & Inspection: normal respiratory effort Auscultation: clear to auscultation bilaterally Cardio Rate: regular rate Rhythm: regular rhythm Heart Sounds: no murmurs GI Palpation: soft, no hepatosplenomegaly Extrem Other: Thenar atrophy noted bilateral palms. Diminished cv rn strength right hand more than the left. Abnormal light touch sensation right hand second third fourth digits, 3+ right radial pulse Assessment & Plan Problems 1. 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 The patient is very much concerned about progressive loss of use and sensation of the right hand. They are? Regarding his prednisone therapy. I have suggested to him that although risk is increased that it would be reasonable to proceed with right carpal tunnel release either on 10 mg or 5 mg of prednisone daily. I have cautioned the patient however that he would have to be off of his double anticoagulation. He is aware of the increased risk of surgical intervention related to these 2 separate medical comorbidities. However I certainly agree with the patient that the severity of his disease and ongoing symptom complex will lead him to significant loss of the right hand. Already he is not able to function his right ear hearing aid because of the numbness of the fingers and lack of fine motor control. I have offered him a right carpal tunnel release under Lin block anesthesia I discussed with him the technique, benefits, risks and alternatives. We will confer with Dr. Fran Sethi regarding holding anticoagulation. The patient will further discuss treatment with both his oncologist and take away worker. CC: Dr. Fran August M.D., F.A.C.S. Coding Level of Care Code Off vis,new,level 4 Diagnoses Carpal tunnel syndrome of right wrist G56.01 01/28/19 1844 <Electronically signed by Emil camarena MD> Date _ Emil August MD I have re-examined the patient. There are no clinical changes since date of exam.
[2019-01-28 14:03] VITALS: BMI 26.3
--- NOTE | 2019-02-10 11:45 | EKG12_ITS ---
Test Reason : PRE-OP Blood Pressure : / mmHG Vent. Rate : 086 BPM Atrial Rate : 468 BPM P-R Int : 000 ms QRS Dur : 112 ms QT Int : 364 ms P-R-T Axes : 000 056 003 degrees QTc Int : 435 ms Atrial fibrillation Septal infarct (cited on or before 05-JUN-2015) Abnormal ECG When compared with ECG of 02-SEP-2018 18:42, No significant change was found Confirmed by ARLETTE HITCHCOCK, RENATO ([id number]), editorial project manager CHRIS SANON ([id number]) on 02/12/2019 11:38:54 AM Referred By: Emil August Confirmed By:RENATO CHONG MD
[2019-02-10 12:24] LABS: Hematocrit 39.7 % (40-54); Hemoglobin 12.5 g/dL (13.0-16.5); Mean Corp Hgb Conc 31.5 g/dL (32-36); Mean Corpuscular Hgb 31.3 pg (27.0-32.0); Mean Corpuscular Volume 99.5 fL (80-94); Mean Platelet Vol. 10.3 fl (6.2-12.0); Platelet Count 181 K/mm3 (150-450); RBC Distribution Width CV 16.8 % (11.6-14.6); RBC Distribution Width SD 61.8 fl (35.1-43.9); Red Blood Count 3.99 M/mm3 (4.6-6.2); White Blood Count 8.8 K/mm3 (4.4-11.0)
[2019-02-10 13:08] LABS: Anion Gap 5 (5-15); BUN 13 mg/dL (7-18); BUN/Creat Ratio 16.5 RATIO (10-20); Calcium,Total 8.9 mg/dL (8.5-10.1); Chloride 103 mmol/L (98-107); Creatinine, Serum 0.79 mg/dL (0.70-1.30); EST Glomerular Filtration Rate 100 mL/min (>60); Est Glom Filt Rate - Afr Amer 121 mL/min (>60); Glucose 108 mg/dL (74-106); Potassium 3.9 mmol/L (3.5-5.1); Sodium Level 138 mmol/L (136-145)
[2019-02-14] VITALS (8 sets, daily range): BP systolic 116–129; BP diastolic 68–86; PULSE 66–83; RESP 15–16; TEMP 36.8–37.2; O2SAT 94–97; BMI 29.5
[2019-02-14] MEDS: Lactated Ringers 1,000 ML 100 ML IV (12:10)
[2019-02-14] MEDS: Bupivacaine Mpf 0.5% 30 ML VIAL (13:23)
[2019-02-14] MEDS: BACITRACIN/POLYMYXIN B 15 GM Tube 1 APPLIC (13:23)
--- NOTE | 2019-02-14 13:28 | DCINST_ITS ---
Discharge Diet: Light diet - advance as tolerated Discharge Activity: May Not Drive - for 2-3 days or while taking narcotic pain medications., - - Do not drive, work heavy equipment or sign legal documents for 24 hours. May shower in (days): 1 - with the bandage in place. Call your doctor if your incision/area has: Continuous Slow Oozing, Sudden Increased Bleeding, Increased Pain/ Swelling, Increased Redness, Foul Smelling Discharge Call your doctor if you observe: Fever of 101 or Higher Suture Line Care: Avoid Pulling/Pushing, Avoid Pinching/Bending Additional Dressing/Incision Instructions:: Elevate your right arm for comfort, please keep the dressings clean and dry, no lifting greater than 1 to 2 pounds, Allergies/Adverse Reactions: Allergies No Known Allergies Allergy (Verified 02/14/19 11:51) Medications to take at Discharge RX: Atorvastatin Calcium [Lipitor] 80 mg PO QHS 06/06/15 RX: Furosemide [Lasix] 20 mg PO DAILY 01/01/17 acyclovir 400 mg tablet 400 mg PO BID 04/26/17 sertraline 100 mg tablet 100 mg PO DAILY 04/26/17 sulfamethoxazole 800 mg-trimethoprim 160 mg tablet 1 tab PO MOWEFR 04/26/17 losartan 25 mg tablet 25 mg PO DAILY #90 tab 03/18/18 RX: Clopidogrel Bisulfate [Clopidogrel] 75 mg PO DAILY 09/02/18 apixaban 5 mg tablet 5 mg PO BID #180 tab 01/01/19 fluticasone propionate 50 mcg/actuation nasal spray,suspension 2 spray INTRANASAL PRN PRN 01/28/19 RX: Prednisone 7.5 mg PO DAILY 02/07/19 Orders to be completed after discharge: Basic Metabolic Profile (BMP) Time Frame: 02/07/19, Facility: [facility], Location: Laboratory CBC-Complete Blood Cnt No Diff Time Frame: 02/07/19, Facility: [facility], Location: Laboratory Primary Care Physician: Justin Leavitt MD [Primary Care Provider] - Test Results: Test results from this visit will be discussed in further detail at your follow- up appointment, if applicable. Please Follow Up With: Emil August MD - Please call [phone] to schedule an appointment. When: 7 days after your surgery
--- NOTE | 2019-02-14 13:29 | PCM.OPRPT ---
Problem List (1) Carpal tunnel syndrome of right wrist Status: Acute Report of Operation Date of Procedure: 02/14/19 Pre-Operative Diagnosis: Severe right carpal tunnel syndrome Post-Operative Diagnosis: Same Surgery/Procedure Performed:: Right carpal tunnel release Description of Surgical Findings:: Timeout and informed consent was obtained. 83-year-old gent was taken to the operating placement the table. He underwent Lin block anesthesia. Tourniquet to 250 mm of pressure for 21 minutes. The right extremity was sterilely prepped and draped. Curvilinear incision made the base the right palm sharp dissection carried down through the subcutaneous tissue the palmar fascia was identified incised it was incised gently to the proximal wrist crease and then along the fourth ray very heavy thickened fascia was incised to the proximal palm. Good release was achieved. Subcutaneous dermal tissues were approximated with interrupted 3-0 chromic. Skin edges approximated with simple sutures of 5-0 nylon. Topical antibiotic ointment applied after 0.5% Marcaine 0.5% was instilled around the wound a total of 3 cc. Telfa 4 x 4's soft roll and Ozzy wrap applied. Tourniquet was deflated and reinflated. He was subsequent taken to the recovery area in status condition without apparent complication. Hand appeared to be viable to completion without apparent complication Specimens none. Drains none. Blood loss minimal Emil August M.D., F.A.C.S. Clean procedure. No antibiotics required. Type of Anesthesia:: Block,Lin Anesthesiologist: Eric Fraser
== END 2019-02-14 15:14 | disposition home or self-care (01) ==
LOC: SDC 10:58 → AC 10:58
PROVIDERS: Family Provider Internal Medicine; PCP Internal Medicine; Referring Provider Surgery; Visit Provider Surgery
PROC: (CPT 64721; principal; 2019-02-14 12:45)
DX: G56.01 Carpal tunnel syndrome, right upper limb (principal); I25.5 Ischemic cardiomyopathy; I25.10 Atherosclerotic heart disease of native coronary artery without angina pectoris; I48.19 Other persistent atrial fibrillation; I48.92 Unspecified atrial flutter; I34.0 Nonrheumatic mitral (valve) insufficiency; I10 Essential (primary) hypertension; E78.5 Hyperlipidemia, unspecified; G47.33 Obstructive sleep apnea (adult) (pediatric); Z79.01 Long term (current) use of anticoagulants; Z79.02 Long term (current) use of antithrombotics/antiplatelets; Z79.899 Other long term (current) drug therapy; I25.2 Old myocardial infarction; Z92.21 Personal history of antineoplastic chemotherapy; Z85.72 Personal history of non-Hodgkin lymphomas; Z87.891 Personal history of nicotine dependence; Z95.1 Presence of aortocoronary bypass graft; Z95.5 Presence of coronary angioplasty implant and graft
CPT/HCPCS: 64721; 36415; 80048; 85027; 93005; J7120; J2405

== ENCOUNTER → 2019-03-10 15:45 | Outpatient (CLI) | payer MEDICARE, OTHER, SELFPAY ==
[2019-03-10 14:40] VITALS: BMI 29.8
[2019-03-10 17:53] LABS: Anion Gap 6 (5-15); BUN 14 mg/dL (7-18); BUN/Creat Ratio 16.2 RATIO (10-20); Calcium,Total 8.9 mg/dL (8.5-10.1); Chloride 105 mmol/L (98-107); Creatinine, Serum 0.86 mg/dL (0.70-1.30); EST Glomerular Filtration Rate 90 mL/min (>60); Est Glom Filt Rate - Afr Amer 109 mL/min (>60); Glucose 103 mg/dL (74-106); Potassium 3.9 mmol/L (3.5-5.1); Sodium Level 142 mmol/L (136-145)
[2019-03-10 18:04] LABS: BNP,B-Type NATRIURETIC PEPTIDE 168.8 pg/mL (0-100)
== END ==
PROVIDERS: Nurse Practitioner Family; Family Provider Internal Medicine; PCP Internal Medicine; Referring Provider Internal Medicine Cardiovascular Disease; Visit Provider Internal Medicine Cardiovascular Disease
DX: R06.09 Other forms of dyspnea (principal); E78.5 Hyperlipidemia, unspecified; I10 Essential (primary) hypertension; I25.10 Atherosclerotic heart disease of native coronary artery without angina pectoris; I25.5 Ischemic cardiomyopathy; I34.0 Nonrheumatic mitral (valve) insufficiency; I48.19 Other persistent atrial fibrillation; Z95.1 Presence of aortocoronary bypass graft; Z95.5 Presence of coronary angioplasty implant and graft
CPT/HCPCS: 36415; 80048; 83880

== ENCOUNTER → 2019-03-20 13:56 | Outpatient (CLI) | payer MEDICARE, OTHER, SELFPAY ==
[2019-03-10 14:40] VITALS: BMI 29.8
--- NOTE | 2019-03-20 13:57 | ECHOD_ITS ---
Reason For Study: DYSPNEA Procedure This was a 2D Doppler, Color Flow transthoracic echocardiogram. Exam performed portable in ED. Left Ventricle Normal LV size. The estimated ejection fraction is 50 %. Unable to assess diastolic dysfunction due to arrhythmia. There is mild global hypokinesis of the left ventricle. Right Ventricle Normal RV size. Normal systolic function. Atria The left atrium is severely enlarged. The right atrium is moderately enlarged. Mitral Valve Mild mitral valve prolapse. Mild-Moderate (1-2+) eccentric mitral valve insufficiency. Tricuspid Valve Normal tricuspid valve. Mild to moderate (1-2+) tricuspid valve insufficiency. Pulmonary artery systolic pressure is 40 mmHg. Aortic Valve Trisinus/trileaflet aortic valve. Mild focal aortic valve calcification. Mild (1+) aortic valve insufficiency. Pulmonic Valve Normal pulmonic valve. Great Vessels Mildly dilated aortic root. The pulmonary artery is normal size. Normal inferior vena cava. Pericardium/Pleural No pericardial effusion. MMode/2D Measurements & Calculations LVIDd: 5.7 cm IVSd: 1.3 cm Ao root diam: 4.0 cm LVIDs: 4.4 cm LVPWd: 1.1 cm RVDd: 4.3 cm FS: 22.4 % LAV(MOD-bp): 192.9 ml LVAd ap4: 38.1 cm2 SV(MOD-sp4): 82.3 ml LAV(MOD-bp) Indexed: 91.3 ml/m2 EDV(MOD-sp4): 145.5 ml LAV(MOD-sp2): 172.6 ml EDV(sp4-el): 150.2 ml LAV(MOD-sp4): 176.2 ml LVAs ap4: 23.1 cm2 ESV(MOD-sp4): 63.1 ml ESV(sp4-el): 62.7 ml EF(MOD-sp4): 56.6 % EF(sp4-el): 58.2 % SV(sp4-el): 87.5 ml LA A4 area: 43.7 cm2 LA dimension(2D): 6.2 cm RA A4 area: 28.8 cm2 Doppler Measurements & Calculations Ao V2 max: 130.8 cm/sec AI max fay: 398.5 cm/sec LV V1 max: 78.7 cm/sec Ao max P.9 mmHg AI max P.5 mmHg LV V1 max P.5 mmHg AI dec slope: 172.3 cm/sec2 AI P1/2t: 677.5 msec PA V2 max: 127.9 cm/sec TR max fay: 298.4 cm/sec TR max P.9 mmHg Interpretation Summary Normal LV size. The estimated ejection fraction is 50 %. Unable to assess diastolic dysfunction due to arrhythmia. The left atrium is severely enlarged. The right atrium is moderately enlarged. Mild to moderate (1-2+) tricuspid valve insufficiency. Mildly dilated aortic root. Mild (1+) aortic valve insufficiency. Compared to prior study, there is no significant change. Ordering Physician: Bijan Deluna/Fran Sethi Referring Physician: JIMBO VELÁZQUEZ Performed By: Marlene Goodwin, OBINNA, RVT
[2019-03-20 16:13] LABS: Anion Gap 3 (5-15); BUN 17 mg/dL (7-18); BUN/Creat Ratio 20.5 RATIO (10-20); Chloride 106 mmol/L (98-107); Creatinine, Serum 0.83 mg/dL (0.70-1.30); EST Glomerular Filtration Rate 94 mL/min (>60); Est Glom Filt Rate - Afr Amer 113 mL/min (>60); Glucose 88 mg/dL (74-106); Potassium 4.1 mmol/L (3.5-5.1); Sodium Level 141 mmol/L (136-145)
== END ==
PROVIDERS: PCP Internal Medicine; Referring Provider Nurse Practitioner Family; Visit Provider Nurse Practitioner Family
DX: R06.00 Dyspnea, unspecified (principal); R06.02 Shortness of breath; I10 Essential (primary) hypertension; E78.5 Hyperlipidemia, unspecified; I25.10 Atherosclerotic heart disease of native coronary artery without angina pectoris; I25.5 Ischemic cardiomyopathy; I34.0 Nonrheumatic mitral (valve) insufficiency; Z95.1 Presence of aortocoronary bypass graft; Z95.5 Presence of coronary angioplasty implant and graft
CPT/HCPCS: 36415; 80048; 93306

== ENCOUNTER 2019-06-29 11:06 | Emergency (ER) | payer MEDICARE, OTHER, SELFPAY ==
[2019-04-09 12:34] VITALS: BMI 29.2
[2019-06-29 11:07] VITALS: BP 150/88; PULSE 85; RESP 16; TEMP 36.3; O2SAT 98; BMI 26.8
--- NOTE | 2019-06-29 11:35 | EKG12_ITS ---
Test Reason : GIBLEED Blood Pressure : / mmHG Vent. Rate : 073 BPM Atrial Rate : 050 BPM P-R Int : 000 ms QRS Dur : 120 ms QT Int : 406 ms P-R-T Axes : 000 103 -28 degrees QTc Int : 447 ms Atrial fibrillation Rightward axis Septal infarct , age undetermined Abnormal ECG Confirmed by ARLETTE HITCHCOCK, RENATO ([id number]), news copy editor SUSAN EARL ([id number]) on 07/01/2019 11:16:00 AM Referred By: FRANCINE Confirmed By:RENATO CHONG MD
--- NOTE | 2019-06-29 11:55 | ED.VIS.GEN ---
History of Present Illness Chief Complaint: GI Bleed Informant: Patient Onset: Today Maximum Severity: Mild Narrative: Patient presents with blood per rectum after straining heavily to have bowel movement this morning. He is on Eliquis related to A. fib, he has history of lymphoma that is stable but currently not under treatment due to refractory nature of the condition He is not vomiting blood he has no abdominal pain indicates he went to bed feeling fine woke feeling fine felt the need to have a bowel movement was straining quite a bit noticed blood per rectum and his insisted he come to the hospital. He has no pain he has had prior colonoscopies that showed polyps nothing acute Past Medical History - Allergies and Home Meds Allergies/Adverse Reactions: Allergies No Known Allergies Allergy (Verified 06/29/19 11:09) Primary Care Physician: Justin Leavitt MD [Primary Care Provider] - Past Medical History: - Surgical History: - - cabg in 2009 Smoking Status: Former smoker - Family History Maternal Family History: Family History (Last Reviewed 04/09/19 @ 13:[address] Fran Sethi MD) Father CVA (cerebral vascular accident) Mother Diabetes CHF (congestive heart failure) Other Family history of CVA Family History: Reports: Diabetes, - Paternal Family History: Family History (Last Reviewed 04/09/19 @ 13:[address] Fran Sethi MD) Father CVA (cerebral vascular accident) Mother Diabetes CHF (congestive heart failure) Other Family history of CVA Family History: Reports: Diabetes, - Review of Systems ROS: - Fluids as above no history of GI bleeding or rectal bleeding General: Denies: Chills, Fever, Sweats Eyes: Denies: Visual changes - bilaterally, Diplopia ENT: Denies: Rhinorrhea, Sore throat Cardiovascular: Denies: Chest pain, Palpitations Respiratory: Denies: Dyspnea, Cough, Dyspnea on exertion Gastrointestinal: Reports: Hematochezia. Denies: Abdominal pain, Nausea, Vomiting, Diarrhea, Melena Genitourinary: Denies: Dysuria, Hematuria, Frequency Musculoskeletal: Denies: Back pain, Extremity Pain Skin: Denies: Rash, Wounds Neurological: Denies: Headache, Weakness, Numbness Physical Exam Vital Signs/Narrative: Vital Signs Temp Pulse Resp BP Pulse Ox 06/29/19 11:07 97.4 F L 85 16 150/88 H 98 General: Well nourished, Well developed, No Acute Distress Head: Normocephalic, Atraumatic Eyes: Perrl, EOMI ENT: Moist mucous membranes, No rhinorrhea Neck: Supple, Nontender Cardiovascular: Regular rate, Regular rhythm, No murmurs Respiratory: No distress, CTA bilaterally, Chest nontender Abdomen: Soft, Nontender, Nondistended, Normal bowel sounds Rectal: - - He has some external hemorrhoids there is no obvious acute bleeding area, the rectal vault shows some slight blood tingeing of the stool no pain Back: Nontender, Normal Inspection Extremities: Nontender, No edema Skin: Normal color, No rash Neurological: Alert, Oriented x3, Cranial nerves II-XII grossly intact, Normal Strength, Normal Sensation Psychological: Normal affect, Normal Mood Diagnostic/Tx/Re-eval - Medical Decision Making His vital signs are unremarkable he is resting comfortably in the bed he is in no distress his abdomen is soft and nontender he is on the Eliquis he indicates that if he just has minor trauma to any part of his body he has bleeding related to Eliquis but is never had any GI bleeding indicates he is passed stool routinely without having rectal bleeding but today was straining hard to push the stool out of his rectum and the bleeding began he has no complaints or symptoms now at this time screening labs are obtained and will be under observation Screening labs are unremarkable hemoglobin 12 vital signs remain normal discussed all the above with the patient the bleeding the Eliquis potential complications such as life-threatening bleeding etc. the patient is comfortable discharge home does not wish to be admitted again he assures me this occurred because of heavy straining with bowel movements, he will stay in a bland diet high-fiber food MiraLAX follow-up with his outpatient providers and return for change in symptoms and have cautioned him that he may require colonoscopy and he should discuss it with his outpatient providers, he will hold Eliquis for today and possibly tomorrow which done in the past without difficulty Home stable Final impression rectal bleeding resolved Eliquis therapy ED Disposition - Plan for ED Patient: Diagnosis: Persistent atrial fibrillation, Rectal bleeding Instructions: ED Hematochezia Stable Referrals: Justin Leavitt MD [Primary Care Provider] -
[2019-06-29 12:12] LABS: Absolute Lymphocyte Count 0.32 X10^3/uL (0.83-4.51); Absolute Neutrophil Count 8.4 X10^3/uL (2.0-7.7); Basophil# 0.02 X10^3/uL; Basophil% 0.2 % (0-1); Eosinophil# 0.07 X10^3/uL; Eosinophils% 0.7 % (0-5); Hematocrit 40.6 % (40-54); Lymphocyte # 0.32 X10^3/ul (4.0); Lymphocyte % 3.4 % (19-41); Mean Corpuscular Hgb 31.4 pg (27.0-32.0); Mean Corpuscular Volume 98.1 fL (80-94); Mean Platelet Vol. 9.8 fl (6.2-12.0); Monocyte# 0.65 X10^3/uL; Monocyte% 6.9 % (0-10); NRBC Flagged by Analyzer 0 % (0-5); Neutrophil # 8.36 X10^3/uL (2.7-7.7); Neutrophil % 88.4 % (47-70); POSITIVE DIFFERENTIAL YES; Platelet Count 147 K/mm3 (150-450); RBC Distribution Width CV 14.4 % (11.6-14.6); RBC Distribution Width SD 51.9 fl (35.1-43.9); Red Blood Count 4.14 M/mm3 (4.6-6.2); White Blood Count 9.5 K/mm3 (4.4-11.0)
[2019-06-29 12:14] LABS: Bacteria 0 SEEN /hpf (None Seen); Mucous, Urine 0 SEEN /hpf (<or=2+); Red Blood Cells-Urine 0 SEEN /hpf (0-5); White Blood Cells 0 SEEN /hpf (0-5)
[2019-06-29 12:17] LABS: Differential Indicated SCAN CRITERIA MET
[2019-06-29] MEDS: 0.9% Normal Saline 1,000 ML 125 ML IV (12:24)
[2019-06-29 12:29] LABS: ALB/GLOB Ratio 1.2 RATIO (0.9-2.4); AST(SGOT) 30 U/L (15-37); Alanine Aminotransfer ALT/SGPT 27 U/L (16-61); Albumin, Serum 3.6 g/dL (3.2-5.0); Alkaline Phosphatase 101 U/L (45-117); Anion Gap 4 (5-15); BUN 18 mg/dL (7-18); BUN/Creat Ratio 20.4 RATIO (10-20); Chloride 105 mmol/L (98-107); Creatinine, Serum 0.88 mg/dL (0.70-1.30); EST Glomerular Filtration Rate 88 mL/min (>60); Est Glom Filt Rate - Afr Amer 106 mL/min (>60); Estimated Creatinine Clearance 64.52 ml/min; Globulin 2.9 g/dL (2.2-4.2); Glucose 106 mg/dL (74-106); Lipase 137 U/L (73-393); Potassium 3.9 mmol/L (3.5-5.1); Protein, Total 6.5 g/dL (6.4-8.2); Sodium Level 140 mmol/L (136-145)
[2019-06-29 12:34] LABS: Lactic Acid 1.1 mmol/L (0.4-1.9)
[2019-06-29 12:34] LABS: Color, Urine Yellow (Yellow); Glucose, Dipstick Normal (Normal); Ketone-Dipstick Negative (Negative); Leukocyte Esterase-Dipstick Negative /ul (Negative); Nitrite-Dipstick Negative (Negative); Occult Blood-Urine Negative /ul (Negative); Protein-Dipstick Negative (Negative); Urine Bilirubin Dipstick Negative (Negative); Urine Clarity Clear (Clear); Urine Urobilinogen Normal (Normal)
[2019-06-29 12:41] LABS: Squamous Epithelial Cells - UA 0-5 SEEN /hpf (0-5)
== END 2019-06-29 13:14 | disposition home or self-care (01) ==
LOC: ED 12:22
PROVIDERS: Emergency Provider Emergency Medicine; PCP Internal Medicine
DX: K62.5 Hemorrhage of anus and rectum (principal); K64.4 Residual hemorrhoidal skin tags; I48.19 Other persistent atrial fibrillation; Z79.01 Long term (current) use of anticoagulants; Z79.899 Other long term (current) drug therapy; Z85.72 Personal history of non-Hodgkin lymphomas; Z87.891 Personal history of nicotine dependence; Z95.1 Presence of aortocoronary bypass graft
CPT/HCPCS: 80053; 81001; 83605; 83690; 84484; 85025; 93005; 96360; 99283; J7030; A4216

== ENCOUNTER 2019-08-06 05:25 | Day surgery (SDC) | payer MEDICARE, OTHER, SELFPAY ==
[2019-07-31 10:13] VITALS: BMI 26.8
[2019-08-06] VITALS (7 sets, daily range): BP systolic 104–130; BP diastolic 62–85; PULSE 60–69; RESP 16; TEMP 35.9–36.3; O2SAT 97–98; BMI 26.6
--- NOTE | 2019-08-06 05:58 | PCM.HP.BLA ---
Problem List (1) Rectal bleeding Status: Acute History and Physical Date of Admission: 08/06/19 Intake Visit Reasons: rectal bleeding/ colonoscopy Chief Complaint: right carpal tunnel Financial Advisor Required: No Is patient in pain?: No Allergies No Known Allergies Allergy (Verified 07/31/19 10:10) Medications Atorvastatin Calcium [Lipitor] 80 mg PO QHS 06/06/15 [History Confirmed 07/31/19] acyclovir 400 mg tablet 400 mg PO BID 04/26/17 [History Confirmed 07/31/19] sertraline 100 mg tablet 100 mg PO DAILY 04/26/17 [History Confirmed 07/31/19] sulfamethoxazole 800 mg-trimethoprim 160 mg tablet 1 tab PO MOWEFR 04/26/17 [History Confirmed 07/31/19] apixaban 5 mg tablet 5 mg PO BID #180 tab 01/01/19 [Rx Confirmed 07/31/19] fluticasone propionate 50 mcg/actuation nasal spray,suspension 2 spray INTRANASAL PRN PRN 01/28/19 [History Confirmed 07/31/19] clopidogrel 75 mg tablet 75 mg PO DAILY #90 tab 04/04/19 [Rx Confirmed 07/31/19] losartan 25 mg tablet 25 mg PO DAILY #90 tab 05/22/19 [Rx Confirmed 07/31/19] furosemide 40 mg tablet 40 mg PO BID #180 tab 05/28/19 [Rx Confirmed 07/31/19] cholecalciferol (vitamin D3) 125 mcg (5,000 unit) capsule 125 mcg PO DAILY 07/31/19 [History Confirmed 07/31/19] PFSH Family History Father , age 72 CVA (cerebral vascular accident) Mother , age 69 Diabetes CHF (congestive heart failure) Other Family history of CVA Social History (Updated 07/31/19 @ 10:[address] Emil August MD) Smoking Status: Former smoker alcohol intake: current alcohol intake frequency: a few times a week substance use type: does not use caffeine: Yes what type of physical activity do you participate in: none frequency: does not exercise HPI HPI HPI: ZAINAB CARRILLO, is a 84 M who presents to the office today for surgical consultation regarding episode of rectal bleeding and change of bowel habits. Patient was referred by his primary care physician Dr. Leavitt and a written copy of my surgical consult recommendations will return to him. The patient has refractory follicular lymphoma. He just was seen by his oncologist Dr. Richardson Castro yesterday. The patient is being offered a experimental protocol versus apparently additional establish treatment. The patient requires a bone marrow biopsy and further work-up prior to initiation of treatment. It is of note that about a month ago after rather firm stool he had rectal bleeding and was sent to the emergency room where he was noted to be stable. He is on Eliquis because of atrial fibrillation and clopidogrel because of coronary stents. He additionally notes a distinct change of bowel habits over the past month. Prior he had been quite regular. Now he has varied caliber of stool and more a regular bowel movements. Since the first episode he has not had further rectal bleeding. He claims that he has had a previous history of remote colon polyps. His previous colonoscopy was 2009. There is no current known family history of colon cancer. HPI HPI HPI: ZAINAB CARRILLO, is a 84 M who presents to the office today for ROS General General: No weight change, appetite, fatigue, colon cancer, breast cancer or weakness HEENT HEENT: Yes eye surgery; no difficulty swallowing, eye injury, swollen glands or hoarseness Endo Endocrine: No thyroid disease, diabetes mellitus, thyroid cancer, Hair loss, heat intolerance or cold intolerance Skin Skin: No rash or changing moles Musc Musculoskeletal: Yes arthritis; no back problems, rheumatoid arthritis, gout or joint pain Cardio Cardiovascular: Yes heart disease, atrial fibrillation, high blood pressure, heart attack and heart stent; no murmur, pacemaker, palpitations, shortness of breat with exertion or chest pain Psych Psychiatric: No depression, anxiety or hearing voices Resp Respiratory: No shortness of breath, Yes sleep apnea, No cough, No COPD, No asthma, No emphysema, No wheezing Gastro Gastrointestinal: No abdominal pain, No nausea or vomiting, No diarrhea, No constipation, No blood in stool, No acid reflux, Yes hemorrhoids, No ulcers, No gallbladder problem, No black,tarry stools Alfie Hematologic: Yes blood thinners, No blood disorders, No bleeding, No anemia, No blood clots Neuro Neurologic: Yes numbness, Yes tingling, No weakness Exam Const General: cooperative, comfortable, no acute distress Nutritional Appearance: average body habitus Orientation: alert, awake [facility] Head: normal to inspection Chest Chest palpation & inspection: normal inspection of the chest Resp Effort & Inspection: normal respiratory effort Auscultation: clear to auscultation bilaterally Cardio Rate: regular rate Rhythm: regular rhythm Heart Sounds: no murmurs GI Palpation: soft, no hepatosplenomegaly Auscultation: normal bowel sounds Neuro Cognition: normal cognition Extrem General: no calf tenderness Other: Mild left lower extremity swelling as compared to the right Psych Affect: normal affect Assessment & Plan Problems 1. Rectal bleeding K62.5 2. Change in bowel habit R19.4 3. History of colonic polyps Z86.010 4. Chronic anticoagulation Z79.01 Plan 84-year-old gentleman with significant medical comorbidities. He has advancement of his lymphoma and is to undergo potential experimental treatment. He has had an acute change of bowel habits. Said rectal bleeding. He is on dual anticoagulation for atrial fibrillation and atherosclerotic cardiovascular disease with stents. He is age 84. We have discussed technique, benefit, risk, alternatives of a colonoscopy with possible biopsy or polypectomy as indicated. He is aware that at age 84 with his medical comorbidities that he is at increased risk. We have additionally discussed that this is presenting to the Covid-19 pandemic but that the [facility] reports a low local incidence. Because of his medical comorbidities I plan on using monitored anesthesia care. If per chance that the patient is identified as having bleeding internal hemorrhoids then perhaps this might be amenable to office-based hemorrhoidal banding as a lower risk treatment option. I appreciate the opportunity of assisting with his surgical care We will have him hold his Eliquis for 48 hours preintervention and his Plavix for 24 hours preintervention. Cc: Dr. Tree August M.D., F.A.C.S. Coding Level of Care Code 60059 Diagnoses Rectal bleeding K62.5 Change in bowel habit R19.4 History of colonic polyps Z86.010 Chronic anticoagulation Z79.01 07/31/19 1048 <Electronically signed by Emil August MD> Date Emil August MD I have re-examined the patient. There are no clinical changes since date of exam. Procedure Criteria Procedure Type: Essential Procedure Essential: Yes Criteria Statement: On 05/13/2019 the [facility] ([facility]) Public Order signed by [facility] Director Yasmeen Chew M.D., regarding the Management of Non-Essential Surgeries and Procedures for the purpose of preserving Personal Protective Equipment (PPE) and critical hospital capacity and resources within [place] went into effect as of 05/14/2019 at 5:00PM. According to the [facility] Public Order: This action will remain in full force and effect until the State of Emergency declared by the Governor no longer exists or the Director of the [facility] rescinds or modifies this Order. This [facility] order stated all non-essential or elective surgeries and procedures that utilize PPE should be delayed unless there is undue risk to the current or future health of a patient. After reviewing the aforementioned [facility] Public Order and the patient's clinical case, I have determined that the scheduled procedure meets the criteria to go forward. Risk to Patient if Procedure Delayed: Risk of rapidly worsening to severe symptoms if delayed
[2019-08-06] MEDS: Lactated Ringers 1,000 ML 75 ML IV (06:16)
--- NOTE | 2019-08-06 06:30 | COLBX_PTH ---
PATIENT: ZAINAB CARRILLO LOC: EN U#:[id number] AGE/SX: 84/M ROOM: RE08/06/[address]: Dr. Emil August MD : 1935 BED: DIS: 08/06/2019 SPEC #: [id number] RECD: 08/06/19 12:46 STATUS: CESARIO VANI #: [id number] FAYE: 08/06/19 06:[address]: Emil August DEPT: SURGICAL PATHOLOGY RECD BY: Gildardo Portillo ENTERED: 08/07/19 08:15 SP TYPE: COLON BX OTHR DR: Dr. Justin Leavitt MD Tissues: Transverse colon Procedures: Surgery Specimen Level IV HEADER OPERATION: Colonoscopy (MAC) PRE-OP DIAGNOSIS: Rectal bleeding TISSUE SUBMITTED: Proximal transverse polyp biopsy MICROSCOPIC DIAGNOSIS Proximal transverse colon polyp, biopsy: Tubular adenoma. SJ:kamran 08/08/19 MICROSCOPIC DESCRIPTION Slides are reviewed. GROSS DESCRIPTION Received in fixative is one container labeled with the patient's name and designated proximal transverse polyp biopsy. The specimen consists of multiple irregular fragments of light brooks soft tissue that in aggregate measure 1 x 0.3 x 0.1 cm. The specimen is totally submitted in one cassette. / SJ:rg 08/07/19 TC:1 CPT: 26192
--- NOTE | 2019-08-06 07:02 | OP.CCLET_ITS ---
08/06/2019 Justin Leavitt [address] [place] [address] Re : Colonoscopy procedure for Jose Amador Dear Dr. Leavitt This procedure was performed on Tuesday, August 06, 2019. My impressions and recommendations are as follows: Impressions : - Non-thrombosed internal hemorrhoids and internal hemorrhoids that prolapse with straining, but spontaneously regress to the resting position (Grade II) found on digital rectal exam. - One 3 mm polyp in the proximal transverse colon, removed with a cold biopsy forceps. Resected and retrieved. - Diverticulosis in the sigmoid colon. - Tortuous colon. Recommendations : - Discharge patient to home. - Resume previous diet. - Continue present medications. - Repeat colonoscopy in 5 years for surveillance based on pathology results. - Telephone my office for pathology results in 1 week. Suspect internal hemorrhoids as source of bleeding and consider hemorrhoidal banding if symptoms persist My findings are described in the full procedure note, which is enclosed. If I can be of further assistance, please feel free to contact me at Doctor phone number(s): Work: . Sincerely, Emil August MD 08/06/2019 7:01:18 AM This report has been signed electronically.
--- NOTE | 2019-08-06 07:02 | OP.COLON_ITS ---
Patient Name: Jose Amador Procedure Date: 08/06/2019 5:56 AM Date of : 1935 Age: 84 Procedure: Colonoscopy Indications: Rectal bleeding Providers: Emil August MD Medicines: See the Anesthesia note for documentation of the administered medications Patient Profile: Last Colonoscopy: 2009. Complications: No immediate complications. Procedure: Pre-Anesthesia Assessment: - Prior to the procedure, a History and Physical was performed, and patient medications and allergies were reviewed. The patient's tolerance of previous anesthesia was also reviewed. The risks and benefits of the procedure and the sedation options and risks were discussed with the patient. All questions were answered, and informed consent was obtained. Prior Anticoagulants: The patient has taken no previous anticoagulant or antiplatelet agents. ASA Grade Assessment: III - A patient with severe systemic disease. After reviewing the risks and benefits, the patient was deemed in satisfactory condition to undergo the procedure. After I obtained informed consent, the scope was passed under direct vision. Throughout the procedure, the patient's blood pressure, pulse, and oxygen saturations were monitored continuously. The colonoscope was introduced through the anus and advanced to the cecum, identified by appendiceal orifice and ileocecal valve. The colonoscopy was somewhat difficult due to a tortuous colon. The patient tolerated the procedure well. The quality of the bowel preparation was adequate to identify polyps. The ileocecal valve and the appendiceal orifice were photographed. Scope In: 6:31:53 AM Scope Withdrawal Time 0 hours 9 minutes 33 seconds Scope Out: 6:52:45 AM Total Procedure Duration Time 0 hours 20 minutes 52 seconds Findings: The digital rectal exam findings include non-thrombosed internal hemorrhoids and internal hemorrhoids that prolapse with straining, but spontaneously regress to the resting position (Grade II). Pertinent negatives include normal prostate (size, shape, and consistency). A 3 mm polyp was found in the proximal transverse colon. The polyp was sessile. The polyp was removed with a cold biopsy forceps. Resection and retrieval were complete. Scattered diverticula were found in the sigmoid colon. The colon (entire examined portion) was moderately tortuous. Impression: - Non-thrombosed internal hemorrhoids and internal hemorrhoids that prolapse with straining, but spontaneously regress to the resting position (Grade II) found on digital rectal exam. - One 3 mm polyp in the proximal transverse colon, removed with a cold biopsy forceps. Resected and retrieved. - Diverticulosis in the sigmoid colon. - Tortuous colon. Recommendation: - Discharge patient to home. - Resume previous diet. - Continue present medications. - Repeat colonoscopy in 5 years for surveillance based on pathology results. - Telephone my office for pathology results in 1 week. Suspect internal hemorrhoids as source of bleeding and consider hemorrhoidal banding if symptoms persist Procedure Code(s): --- Professional --- 67890, Colonoscopy, flexible; with biopsy, single or multiple Diagnosis Code(s): --- Professional --- K64.1, Second degree hemorrhoids D12.3, Benign neoplasm of transverse colon (hepatic flexure or splenic flexure) K62.5, Hemorrhage of anus and rectum K57.30, Diverticulosis of large intestine without perforation or abscess without bleeding Q43.8, Other specified congenital malformations of intestine CPT copyright 2017 [employer]. All rights reserved. The codes documented in this report are preliminary and upon animal laboratory technician review may be revised to meet current compliance requirements. Emil August MD 08/06/2019 7:01:18 AM This report has been signed electronically. Number of Addenda: 0 Note Initiated On: 08/06/2019 5:56 AM
== END 2019-08-06 07:55 | disposition home or self-care (01) ==
LOC: EN 05:26 → AC 05:26
PROVIDERS: Anesthesiology; PCP Internal Medicine; Referring Provider Internal Medicine; Visit Provider Surgery
PROC: 0DJD8ZZ Inspection of Lower Intestinal Tract, Via Natural or Artificial Opening Endoscopic (ICD-10-PCS; CPT 45378; principal; 2019-08-06 06:25)
DX: D12.3 Benign neoplasm of transverse colon (principal); K64.1 Second degree hemorrhoids; K57.30 Diverticulosis of large intestine without perforation or abscess without bleeding; C82.90 Follicular lymphoma, unspecified, unspecified site; I48.91 Unspecified atrial fibrillation; Z95.5 Presence of coronary angioplasty implant and graft; Z86.010 Personal history of colon polyps; E78.00 Pure hypercholesterolemia, unspecified; G47.30 Sleep apnea, unspecified; Z11.59 Encounter for screening for other viral diseases; Z79.02 Long term (current) use of antithrombotics/antiplatelets; Z79.899 Other long term (current) drug therapy; Z87.891 Personal history of nicotine dependence; Z95.1 Presence of aortocoronary bypass graft
CPT/HCPCS: 45380; 87635; 88305; G2023; J7120; J2405; U0003

== ENCOUNTER 2019-11-15 15:37 | Emergency (ER) | payer MEDICARE, OTHER, SELFPAY ==
[2019-10-15 13:01] VITALS: BMI 27.4
[2019-11-15] VITALS (11 sets, daily range): BP systolic 111–146; BP diastolic 51–91; PULSE 60–89; RESP 16–27; TEMP 36.4–38.2; O2SAT 83–997; BMI 26.7
--- NOTE | 2019-11-15 15:55 | EKG12_ITS ---
Test Reason : Blood Pressure : / mmHG Vent. Rate : 074 BPM Atrial Rate : 227 BPM P-R Int : 000 ms QRS Dur : 114 ms QT Int : 412 ms P-R-T Axes : 000 109 030 degrees QTc Int : 457 ms Atrial fibrillation Rightward axis Low voltage QRS Septal infarct , age undetermined Abnormal ECG Confirmed by ARLETTE HITCHCOCK, RENATO ([id number]), editor city SUSAN EARL ([id number]) on 11/18/2019 4:08:50 PM Referred By: JAIR Confirmed By:RENATO CHONG MD
--- NOTE | 2019-11-15 16:05 | ED.VIS.GEN ---
History of Present Illness Chief Complaint: Shortness of Breath Informant: Patient, Family Narrative: Patient is an 84-year-old male with a past medical history of lymphoma, CAD, cardiomyopathy who presents to the emergency department for shortness of breath, fever, fatigue. The symptoms have been present over the past week and a half. No known sick contacts. He has had a mild cough but relates this to a postnasal drip. He denies any associated chest pain with this. He denies palpitations. No significant leg swelling or calf pain. He does have a history of atrial fibrillation and is on Eliquis and Plavix. He denies any history of DVT/PE. He is undergoing a trial immunotherapy treatment for the lymphoma. He has been on this for the past 12 weeks. He has been feeling slightly nauseous but denies any episodes of vomiting. He did have a few episodes of diarrhea for 3 days but this since resolved. No urinary symptoms. Denies any rash. No known COVID exposures. Walking a short distance does make his symptoms worse. Lying flat also seemed to bother him overnight. Past Medical History - Allergies and Home Meds Allergies/Adverse Reactions: Allergies No Known Allergies Allergy (Verified 10/15/19 13:01) Primary Care Physician: Justin Leavitt MD [Primary Care Provider] - Prior records reviewed: Yes Past Medical History: - - Hypertension, hyperlipidemia, cardiomyopathy, coronary artery disease, lymphoma, atrial fibrillation Surgical History: - - cabg in 2009 Smoking Status: Former smoker - Family History Maternal Family History: Family History (Last Reviewed 10/15/19 @ 13:[address] Fran Sethi MD) Father CVA (cerebral vascular accident) Mother Diabetes CHF (congestive heart failure) Other Family history of CVA Family History: Reports: Diabetes, - Paternal Family History: Family History (Last Reviewed 10/15/19 @ 13:[address] Fran Sethi MD) Father CVA (cerebral vascular accident) Mother Diabetes CHF (congestive heart failure) Other Family history of CVA Family History: Reports: Diabetes, - Review of Systems All systems negative except as indicated General: Reports: Fever. Denies: Sweats Eyes: Denies: Visual changes - bilaterally, Diplopia ENT: Reports: Rhinorrhea. Denies: Bilateral ear pain, Sore throat Cardiovascular: Denies: Chest pain, Palpitations Respiratory: Reports: Dyspnea, Cough, Dyspnea on exertion Gastrointestinal: Reports: Nausea. Denies: Abdominal pain, Vomiting, Diarrhea Genitourinary: Denies: Dysuria, Hematuria, Frequency Musculoskeletal: Denies: Back pain, Extremity Pain Skin: Denies: Rash, Wounds Neurological: Denies: Headache, Weakness, Numbness Physical Exam Vital Signs/Narrative: Vital Signs Temp Pulse Resp BP Pulse Ox 11/15/19 15:38 97.5 F L 89 16 146/75 H 97 Inital Vital Signs reviewed: Yes General: Well nourished, Well developed, No Acute Distress Head: Normocephalic, Atraumatic Eyes: Perrl, EOMI ENT: Moist mucous membranes, No rhinorrhea Neck: Supple, Nontender Cardiovascular: Regular rate, No murmurs, Irregular Respiratory: No distress, CTA bilaterally, Chest nontender Abdomen: Soft, Nontender, Nondistended, Normal bowel sounds Back: Nontender, Normal Inspection Extremities: Nontender, No edema. Negative for: Edema, Calf Tenderness Skin: Normal color, No rash Neurological: Alert, Oriented x3, Cranial nerves II-XII grossly intact, Normal Strength, Normal Sensation Psychological: Normal affect, Normal Mood Diagnostic/Tx/Re-eval - EKG Initial EKG Interpretation: - - Rate 74 bpm and irregularly irregular rhythm. Normal intervals. Normal axis. No significant ST elevations or depressions appreciated. Prior EKG for comparison was performed on June 282019 which is similar in appearance. - Medical Decision Making Patient presents to the emerge department for shortness of breath, fevers and fatigue. Upon arrival to the emergency department vital signs within normal limits although he did saturate to 84% on room air while ambulating to his room. He is in chronic atrial fibrillation but otherwise his physical exam is benign. He does not appear in any acute distress. EKG, chest x-ray and basic lab work being obtained. Coronavirus swab also being performed. X-ray did not reveal any significant acute abnormality. Given hypoxia a CTA was performed which did not show any evidence of pulmonary embolism. There was some groundglass opacity. Coronavirus test was negative. Lab work showed a mildly low hemoglobin as well as low white blood cell count. He has been low before in the past. I did discuss the patient with his lymphoma treatment trial team. They recommended that he be transferred to his lymphoma team. Patient has been informed of this and is agreeable with transfer to the [facility]. He otherwise has been stable throughout ED stay. Patient transferred in stable condition. ED Disposition - Plan for ED Patient: Disposition: [facility] - Main Diagnosis: Shortness of breath, Hypoxia Diagnosis: (Ruled Out): Shortness of breath associated with high altitude Referrals: Justin Leavitt MD [Primary Care Provider] -
[2019-11-15 16:22] LABS: Absolute Neutrophil Count 2.7 X10^3/uL (2.0-7.7); Basophil# 0.04 X10^3/uL; Eosinophil# 0.28 X10^3/uL; Eosinophils% 6.8 % (0-5); Hematocrit 36.4 % (40-54); Hemoglobin 11.7 g/dL (13.0-16.5); Lymphocyte % 7.3 % (19-41); Mean Corp Hgb Conc 32.1 g/dL (32-36); Mean Corpuscular Hgb 28.9 pg (27.0-32.0); Mean Corpuscular Volume 89.9 fL (80-94); Mean Platelet Vol. 9.8 fl (6.2-12.0); Monocyte% 19.5 % (0-10); NRBC Flagged by Analyzer 0 % (0-5); Neutrophil # 2.67 X10^3/uL (2.7-7.7); Neutrophil % 64.9 % (47-70); POSITIVE DIFFERENTIAL YES; Platelet Count 232 K/mm3 (150-450); RBC Distribution Width CV 13.9 % (11.6-14.6); RBC Distribution Width SD 46.2 fl (35.1-43.9); Red Blood Count 4.05 M/mm3 (4.6-6.2); White Blood Count 4.1 K/mm3 (4.4-11.0)
[2019-11-15 16:25] LABS: Differential Indicated SCAN CRITERIA MET
[2019-11-15 16:41] LABS: Anion Gap 7 (5-15); BUN 11 mg/dL (7-18); BUN/Creat Ratio 14.7 RATIO (10-20); Calcium,Total 8.6 mg/dL (8.5-10.1); Chloride 101 mmol/L (98-107); Creatinine, Serum 0.75 mg/dL (0.70-1.30); EST Glomerular Filtration Rate 106 mL/min (>60); Est Glom Filt Rate - Afr Amer 128 mL/min (>60); Estimated Creatinine Clearance 54.99 ml/min; Glucose 102 mg/dL (74-106); Potassium 3.4 mmol/L (3.5-5.1); Sodium Level 138 mmol/L (136-145)
[2019-11-15 17:13] LABS: Differential Comment SCANNED
--- NOTE | 2019-11-15 17:21 | RAD_ITS ---
STUDY: X-RAY CHEST REASON FOR EXAM: Male, 84 years old. FEVER, COUGH, SOB AND DECREASED APPETITE AND ENERGY LEVEL x1 WEEK -- PT HAS HX OF AFIB, CAD, HTN, [place] IN 2009, 3XCABG, 4 STENTS, MITRAL VALVE PROLAPSE, AND LYMPHOMA TECHNIQUE: Single frontal view of the chest. COMPARISON: 09/05/2018 FINDINGS: Median sternotomy wires and CABG clips. The lungs are clear and expanded. Right pleural effusion. Normal size heart. Normal mediastinum and guillermo. Normal visualized pulmonary arteries. Normal visualized aortic arch and descending thoracic aorta. Normal visualized thoracic spine. Normal visualized ribs, clavicles, and shoulders. There is no demonstrated abnormality of the visualized soft tissue structures of the upper abdomen. RAD/Chest 1 View (Portable) IMPRESSION: Right pleural effusion. Electronically Signed: Damon Epps MD at 18:15 EDT Tel , Service support ,
[2019-11-15 17:32] LABS: Mucous, Urine 0 SEEN /hpf (<or=2+); Red Blood Cells-Urine 0 SEEN /hpf (0-5); Squamous Epithelial Cells - UA 0 SEEN /hpf (0-5); White Blood Cells 0 SEEN /hpf (0-5)
[2019-11-15 17:34] LABS: Color, Urine Yellow (Yellow); Glucose, Dipstick Normal (Normal); Ketone-Dipstick Negative (Negative); Leukocyte Esterase-Dipstick Negative /ul (Negative); Nitrite-Dipstick Negative (Negative); Occult Blood-Urine 10 /ul (Negative); Protein-Dipstick Negative (Negative); Specific Gravity, Urine 1.015 (1.002-1.030); Urine Bilirubin Dipstick Negative (Negative); Urine Clarity Clear (Clear); Urine Urobilinogen 4 mg/dl (Normal); Urine pH 6.5 (5.0 - 8.0)
[2019-11-15 17:41] LABS: Bacteria RARE /hpf (None Seen)
[2019-11-15 17:52] LABS: Probe Check PASS; Specimen Processing Control PASS
--- NOTE | 2019-11-15 18:07 | CT_ITS ---
STUDY: CTA CHEST REASON FOR EXAM: Male, 84 years old. Cough fever shortness of breath RADIATION DOSAGE (If Supplied By Facility): CTDIvol = ( 7.23 ) mGy, DLP = ( 439.22 ) mGycm TECHNIQUE: The examination was performed with the intravenous administration of IV 100mL Isovue-370. Post-processing of the angiographic images was performed, with multiplanar reformation and 3D reconstruction. Individualized dose optimization techniques were used for this CT. COMPARISON: None. FINDINGS: There is no acute or chronic pulmonary embolism. Aorta is of normal caliber. There is prior coronary artery bypass grafting with severe [place] coronary artery disease. There is mild pulmonary arterial hypertension. Left atrium is massively enlarged. Left ventricle is mildly enlarged. Right heart is normal. Pericardium is normal. There is ill-defined mediastinal increased density in the subcarinal and right hilar locations, possibly ill-defined and/or fibrotic lymph nodes. There are dystrophic chronic subcarinal and paraesophageal lymph nodes related to prior inflammatory disease and/or due to prior sternotomy. There are small bilateral pleural effusions. There is no pneumothorax. Central airways are patent. There is a mix of mosaic attenuation of the lungs with ill-defined scattered ground glass opacities and atelectasis/scarring. Osseous structures are intact. CT/CTA Chest W/WO Contrast IMPRESSION: 1. No pulmonary embolism 2. Prior bypass, coronary artery disease. 3. Groundglass pulmonary opacities/mosaic attenuation, this can be seen with acute such as viral pneumonia or pulmonary edema or chronic disease, such as related to emphysema or pulmonary vascular disease. 4. Nonspecific mediastinal lymph nodes/density. Recommend short-term follow-up after improvement in patient''s acute clinical condition with CT chest with contrast for definitive confirmatory evaluation. Electronically Signed: Shalini Nunez, at 19:30 EDT Tel , Service support ,
[2019-11-15] MEDS: Acetaminophen 325 MG Tablet 650 MG PO (18:11)
[2019-11-16] VITALS: BP 132/70; PULSE 59; RESP 27; TEMP 37; O2SAT 97
[2019-11-16 00:36] VITALS: BP 119/83; PULSE 60; RESP 26; TEMP 36.5; O2SAT 96
--- NOTE | 2019-11-16 03:51 | ED.RN ---
chart opened to answer a [facility] question about meds given here.
[2019-11-17 13:37] LABS: Pathologist Review Reviewed
== END 2019-11-16 00:51 | disposition short-term general hospital (02) ==
LOC: ED 16:13
PROVIDERS: Emergency Provider Emergency Medicine; PCP Internal Medicine
DX: I48.20 Chronic atrial fibrillation, unspecified (principal); I25.10 Atherosclerotic heart disease of native coronary artery without angina pectoris; I42.9 Cardiomyopathy, unspecified; R06.02 Shortness of breath; R50.9 Fever, unspecified; R05 Cough; I10 Essential (primary) hypertension; E78.5 Hyperlipidemia, unspecified; Z79.01 Long term (current) use of anticoagulants; Z79.899 Other long term (current) drug therapy; Z79.02 Long term (current) use of antithrombotics/antiplatelets; Z87.891 Personal history of nicotine dependence; Z85.72 Personal history of non-Hodgkin lymphomas
CPT/HCPCS: 71045; 71275; 80048; 81001; 84484; 85025; 87635; 93005; 99285; C9803; Q9967; A4216; U0003

== ENCOUNTER → 2020-01-07 11:24 | Outpatient (CLI) | payer MEDICARE, OTHER, SELFPAY ==
[2019-12-05 14:36] VITALS: BMI 23.5
[2020-01-07 12:46] LABS: Anion Gap 5 (5-15); BUN 15 mg/dL (7-18); BUN/Creat Ratio 18.8 RATIO (10-20); Calcium,Total 8.7 mg/dL (8.5-10.1); Chloride 102 mmol/L (98-107); EST Glomerular Filtration Rate 98 mL/min (>60); Est Glom Filt Rate - Afr Amer 119 mL/min (>60); Glucose 78 mg/dL (74-106); Potassium 3.8 mmol/L (3.5-5.1); Sodium Level 140 mmol/L (136-145)
== END ==
PROVIDERS: PCP Internal Medicine; Referring Provider Nurse Practitioner Family; Visit Provider Nurse Practitioner Family
DX: I25.10 Atherosclerotic heart disease of native coronary artery without angina pectoris (principal); I25.5 Ischemic cardiomyopathy; Z79.899 Other long term (current) drug therapy; Z95.5 Presence of coronary angioplasty implant and graft
CPT/HCPCS: 36415; 80048

== ENCOUNTER → 2020-02-19 11:05 | Outpatient (CLI) | payer MEDICARE, OTHER, SELFPAY ==
[2020-01-28 13:47] VITALS: BMI 26.5
[2020-02-19 12:18] LABS: Anion Gap 4 (5-15); BUN 13 mg/dL (7-18); BUN/Creat Ratio 16.1 RATIO (10-20); Calcium,Total 8.7 mg/dL (8.5-10.1); Chloride 105 mmol/L (98-107); Creatinine, Serum 0.81 mg/dL (0.70-1.30); EST Glomerular Filtration Rate 97 mL/min (>60); Est Glom Filt Rate - Afr Amer 117 mL/min (>60); Glucose 165 mg/dL (74-106); Potassium 3.5 mmol/L (3.5-5.1); Sodium Level 142 mmol/L (136-145)
== END ==
PROVIDERS: PCP Internal Medicine; Referring Provider Nurse Practitioner Family; Visit Provider Nurse Practitioner Family
DX: I25.10 Atherosclerotic heart disease of native coronary artery without angina pectoris (principal); I48.11 Longstanding persistent atrial fibrillation; R60.9 Edema, unspecified
CPT/HCPCS: 36415; 80048

== ENCOUNTER 2020-03-19 12:07 | Outpatient (RCR) | payer MEDICARE, OTHER, SELFPAY ==
[2020-01-28 13:47] VITALS: BMI 26.5
== END 2020-03-19 23:59 ==
LOC: IMMUN 12:07
PROVIDERS: PCP Internal Medicine; Visit Provider Family Medicine
DX: Z23 Encounter for immunization (principal)
CPT/HCPCS: 0011A; 0012A; 91301

== ENCOUNTER 2021-11-22 09:34 | Inpatient (IN) | payer MEDICARE, OTHER, SELFPAY ==
[2021-11-22] VITALS (12 sets, daily range): BP systolic 130–151; BP diastolic 59–123; PULSE 59–87; RESP 18–29; TEMP 36.6–37.6; O2SAT 92–97; BMI 22.9; BMI 22.1
--- NOTE | 2021-11-22 10:08 | ED.VIS.DYS ---
HPI History of Present Illness Chief Complaint: Shortness of Breath Informant: patient Onset/Context/Timing Onset: Days Context: gradual Timing: Intermittent Current Severity: Gone Maximum Severity: Mild Worsened by: Nothing Relieved by: Nothing Associated Symptoms cough; Negative for fever, sore throat or sweats Chest Pain: Positive for None Narrative Narrative: 86-year-old male history of A. fib on Eliquis, hypertension, ND, CABG with coronary stents. Prior history of lymphoma and being worked up for possible metastatic squamous cancer. reportedly tested positive for COVID recently. Reportedly the primary care physician's office his pulse ox was 88. He has had chills no fever. Denies vomiting or diarrhea. No melena or dysuria. PE Risk Factors: Positive for Cancer; Negative for OCP + Smoking + > 35, Prior DVT or PE, Recent immobilization, Recent surgery or Recent travel Prior similar symptoms: No Recent Illness/Hospitalization: No PFSH [facility] Medical History (Updated 11/22/21 @ 14:[address] 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) Paroxysmal atrial fibrillation Rectal bleeding Secondary pulmonary arterial hypertension Squamous carcinoma Home Medications sertraline 100 mg tablet 100 mg PO DAILY depression 04/26/17 [History Last Taken 09/02/18 09:00] metoprolol succinate 25 mg tablet,extended release 24 hr 12.5 mg PO DAILY 10/15/19 [History Last Taken Unknown] ondansetron HCl 4 mg tablet 4 mg PO Q6H PRN 12/04/19 [History Last Taken Unknown] sulfamethoxazole 800 mg-trimethoprim 160 mg tablet (Bactrim DS) 2 tab PO Q6H 12/04/19 [History Last Taken Unknown] atorvastatin 80 mg tablet 80 mg PO QHS cholesterol #90 tabs 04/20/20 [Rx Last Taken Unknown] diclofenac sodium 1 % topical gel 2 g topical ONCE 04/20/20 [History Last Taken Unknown] potassium chloride 20 mEq tablet,extended release 20 meq PO DAILY #90 tabs 11/15/20 [Rx Last Taken Unknown] apixaban 2.5 mg tablet (Eliquis) 2.5 mg PO BID #180 tabs 11/25/20 [Rx Last Taken Unknown] furosemide 40 mg tablet See Rx Instructions .Route .COMPLEX #270 tabs 05/13/21 [Rx Last Taken Unknown] albuterol sulfate 90 mcg/actuation aerosol inhaler 2 puff inhalation Q6H PRN SOB 06/28/21 [History Last Taken Unknown] aspirin 81 mg tablet,delayed release See Rx Instructions .Route .COMPLEX #90 tabs 07/05/21 [Rx Last Taken Unknown] Allergy/AdvReac Type Severity Reaction Status Date / Time ramipril Allergy Intermediate cough Verified 11/22/21 09:38 Family History Father , age 72 CVA (cerebral vascular accident) Mother , age 69 Diabetes CHF (congestive heart failure) Other Family history of CVA Surgical History H/O coronary artery bypass surgery (06/25/09) History of carpal tunnel release History of coronary artery stent placement (05/12/14) History of thoracic surgery Social History Smoking Status: Former smoker alcohol intake: current alcohol intake frequency: a few times a week substance use type: does not use caffeine: Yes what type of physical activity do you participate in: none frequency: does not exercise ROS ROS ED ROS Narrative Chills. Review of Systems ROS Unobtainable: Denies due to encephalopathy Constitutional Constitutional ED: Reports chills Eyes Eyes: Denies blurry vision ENT ENT ED: Denies ear pain Cardiovascular Cardiovascular: Denies chest pain Respiratory/Chest Respiratory/Chest: Denies cough or dyspnea Gastrointestinal Gastrointestinal: Denies abdominal pain Genitourinary Genitourinary ED: Denies dysuria Musculoskeletal Musculoskeletal: Denies arthralgias Integumentary Denies abscess Neurologic Neurologic: Denies headache(s) Psychiatric Psychiatric: Denies anxiety Endocrine Endocrinology: Denies cold intolerance Hematologic/Lymphatic Hematologic/Lymphatic: Denies easy bleeding Allergic/Immunologic Allergic/Immunologic ED: Denies mouth swelling or tongue swelling EXAM Physical Exam Narrative Exam Narrative: 86-year-old male. Vital signs stable afebrile is 97% on room air with COVID mask on. He is on no oxygen. There is no hypoxia. He is in no distress. H EENT exam unremarkable. He does have what appears to be skin cancer on his left forehead which they are evaluating. Neck nontender. Lungs clear to auscultation. Heart irregularly irregular rate about 85 no murmur. Chest were nontender. Abdomen soft nontender. Moving all 4 extremities. Calves are nontender without edema. Neurologically is awake and alert. Const Vital Signs: 11/22/21 09:35 11/22/21 09:38 11/22/21 09:59 Temperature 98 F 98 F Temperature Source Temporal Temporal Pulse Rate 87 87 Respiratory Rate 18 18 Respiratory Effort Blood Pressure 141/80 H 141/80 H Blood Pressure Mean 100 100 Pulse Ox 97 97 92 Oxygen Delivery Method Room Air Room Air Room Air 11/22/21 09:59 11/22/21 10:21 11/22/21 12:54 Temperature Temperature Source Pulse Rate 59 L Respiratory Rate 29 H Respiratory Effort Short of Breath Labored Blood Pressure 140/59 H Blood Pressure Mean 86 Pulse Ox 94 94 Oxygen Delivery Method Room Air Room Air Room Air Positive well nourished and well developed; Negative for obese, cachectic, contractures or unkempt General Appearance ED: well developed and NAD; Negative for unkempt, cachectic, contractures or pallor Nutritional Appearance: Negative for cachectic or obese HEENT Reports moist mucous membranes; Denies dry mucous membranes atraumatic; Negative for trauma or tenderness Mouth ED: No dry mucous membranes Mouth: No dry mucous membranes Eyes PERRL and EOMs intact bilaterally General Eye ED: Negative for pale conjunctiva or scleral icterus Neck no lymphadenopathy, supple, no meningeal signs and no JVD General: Negative for tenderness Lymph Lymphatic: Negative for other Chest Wall Chest: Negative for other Resp normal respiratory effort and clear to auscultation bilaterally Effort and Inspection: Negative for pain with movement Auscultation: Negative for rales, rhonchi or wheezes Cardio S1 normal heart sound, S2 normal heart sound and no murmurs; Negative for regular rate or regular rhythm Rhythm: abnormal rhythm GI non-tender, non-distended and no masses Inspection: Negative for other Auscultation: normoactive bowel sounds Palpation: soft; Negative for tender or guarding Bladder / Kidney Exam: No other Back/Spine no CVA tenderness and normal to inspection General Back: Negative for CVA tenderness Extremity normal to inspection General Extremety ED: Negative for edema or tenderness General Extremity: Negative for edema Neuro oriented x3 Sensorium / Orientation: alert, oriented to person, oriented to place and oriented to time; Negative for orientation impaired, confused, lethargic or stuporous Speech: Negative for speech normal Motor Exam: strength 5/5 throughout Psych mental status grossly normal Appearance: Negative for unkempt Attitude: No agitated and No other Mood & Affect: Negative for depressed or anxious Thought Process: normal thought process Skin no wounds General Skin Exam: Negative for jaundice or pallor Lesions: no lesions Rashes: no rashes Trauma: Negative for abrasion or laceration MDM MDM MDM Narrative Medical decision making narrative: 86-year-old reported low pulse ox at the doctor's office with his recently COVID-positive. Labs and chest x-ray and EKG will be obtained. COVID will be tested for. He is already on Eliquis I do not think he needs to be worked up for blood clots. Repeat exam unchanged. Patient Went to the bathroom was very unsteady on his feet and appeared weak. His pulse ox dropped down to 85 on room air. He became short of breath. Family is now present in the room they want when he initially presented. They said he has not been feeling well for over a week. Decreased appetite. Decreased intake. We discussed that he still may have COVID even though the rapid COVID test was negative. I ordered a PCR. He is hypoxic and hypokalemic. I will speak to the hospitalist about admission. Lab Data Attestation: I reviewed the patient's lab results. Lab results narrative: CBC shows a white count 10.4. H&H 12.8 and 39. Platelets 164. Electrolytes show potassium 2.9 a gap of 9 normal BUN and creatinine 15 and 0.6. Glucose 107. Chest x-ray is chronic changes no significant change from her prior one 2 years ago. Right pleural effusion. Labs: Laboratory Results - last 24 hr 11/22/21 11/22/21 10:55 10:55 WBC 10.4 RBC 4.28 L Hgb 12.8 L Hct 39.2 L MCV 91.6 MCH 29.9 MCHC 32.7 RDW Std Deviation 50.5 H RDW Coeff of Sofy 15.2 H Plt Count 164 MPV 9.8 Immature Gran % (Auto) 0.400 Neut % (Auto) 84.7 H Lymph % (Auto) 3.5 L [place] % (Auto) 9.6 Eos % (Auto) 1.5 Baso % (Auto) 0.3 Absolute Neuts (auto) 8.8 H Absolute Lymphs (auto) 0.37 L Nucleated RBC % 0 Differential Comment COMMENT Sodium 139 Potassium 2.9 L Chloride 98 Carbon Dioxide 32.0 Anion Gap 9 BUN 15 Creatinine 0.69 L Estim Creat Clear Calc 54.43 Est GFR (MDRD) Af Amer 139 Est GFR (MDRD) Non-Af 115 BUN/Creatinine Ratio 21.6 H Glucose 107 H Calcium 8.9 Radiography Chest X-Ray - ED: 1 View, Read by ED Physician, Heart, Mediastinum, Bony Structures, No Acute Disease, Chronic Changes and Right Effusion Diagnostic Testing: Clinical Impression(s) from Imaging Studies Chest X-Ray 11/22/21 11:00 IMPRESSION: Patchy bibasilar infiltrates worse on the right lung base with blunting of the right costophrenic angle Electronically Signed: Dionisio Mason MD at 12:01 EDT , Interpreted by myself. Chest x-ray, portable, single view shows chronic changes. Right pleural effusion. Opacities right hilar right lower lobe left hilar which is very consistent with a prior chest x-ray. I think these are chronic changes and not an acute pneumonia. Rhythm Strip Rhythm Strip: A-fib Rate: 73 Ectopy: None EKG Initial EKG: Attestation: I personally reviewed and interpreted this EKG as follows: Interpretation: No Acute Injury Pattern and Atrial Fibrillation Comments: Atrial fibrillation rate of 73. No acute signs of ND or ischemia. Patient has a history of A. fib. Discharge Plan Dx/Rx/DC Orders Clinical Impression: Weakness, Chronic anticoagulation, Hypoxia, Adult failure to thrive, History of lymphoma, Acute hypokalemia, Chronic a-fib Disposition Disposition: [facility]
--- NOTE | 2021-11-22 10:15 | EKG12_ITS ---
Test Reason : SOB Blood Pressure : / mmHG Vent. Rate : 073 BPM Atrial Rate : 000 BPM P-R Int : 000 ms QRS Dur : 116 ms QT Int : 414 ms P-R-T Axes : 000 102 -29 degrees QTc Int : 456 ms Atrial fibrillation with premature ventricular or aberrantly conducted complexes Rightward axis Septal infarct , age undetermined Nonspecific ST and T wave abnormality Abnormal ECG Confirmed by MITCH HITCHCOCK, CORAZON ([id number]), city editor CHRIS SANON ([id number]) on 11/23/2021 9:08:42 AM Referred By: LORA Confirmed By:CORAZON MEYER MD
--- NOTE | 2021-11-22 11:00 | RAD_ITS ---
STUDY: X-RAY CHEST REASON FOR EXAM: Male, 86 years old. Low pulse oximetry. TECHNIQUE: Single AP portable view of the chest. COMPARISON: Comparison is made with prior study dated 11/15/2019. FINDINGS: A right-sided Port-A-Cath is seen with the tip at the junction of the superior vena cava and right atrium. EKG lead which are seen. Patchy infiltrates at both lung bases more prominent on the right side. Blunting of the right corresponding angle. Sternal cerclage wires and vascular clips are present from a prior sternotomy and coronary artery bypass graft procedure (CABG). Normal mediastinum and guillermo. Normal visualized pulmonary arteries. There is atherosclerotic calcification of the aortic arch with tortuosity. Normal visualized thoracic spine. There is degenerative osteoarthritis of the bilateral shoulders. There is no demonstrated abnormality of the visualized soft tissue structures of the upper abdomen. RAD/Chest 1 View (Portable) IMPRESSION: Patchy bibasilar infiltrates worse on the right lung base with blunting of the right costophrenic angle Electronically Signed: Dionisio Mason MD at 12:01 EDT ,
[2021-11-22 11:04] LABS: Absolute Lymphocyte Count 0.37 X10^3/uL (0.83-4.51); Absolute Neutrophil Count 8.8 X10^3/uL (2.0-7.7); Basophil# 0.03 X10^3/uL; Basophil% 0.3 % (0-1); Eosinophil# 0.16 X10^3/uL; Eosinophils% 1.5 % (0-5); Hematocrit 39.2 % (40-54); Hemoglobin 12.8 g/dL (13.0-16.5); Lymphocyte # 0.37 X10^3/ul (0.83-4.51); Lymphocyte % 3.5 % (19-41); Mean Corp Hgb Conc 32.7 g/dL (32-36); Mean Corpuscular Hgb 29.9 pg (27.0-32.0); Mean Corpuscular Volume 91.6 fL (80-94); Mean Platelet Vol. 9.8 fl (6.2-12.0); Monocyte% 9.6 % (0-10); NRBC Flagged by Analyzer 0 % (0-5); Neutrophil # 8.83 X10^3/uL (2.7-7.7); Neutrophil % 84.7 % (47-70); POSITIVE DIFFERENTIAL YES; Platelet Count 164 K/mm3 (150-450); RBC Distribution Width CV 15.2 % (11.6-14.6); RBC Distribution Width SD 50.5 fl (35.1-43.9); Red Blood Count 4.28 M/mm3 (4.6-6.2); White Blood Count 10.4 K/mm3 (4.4-11.0)
[2021-11-22 11:05] LABS: Differential Indicated SCAN CRITERIA MET
[2021-11-22 11:18] LABS: Anion Gap 9 (5-15); BUN 15 mg/dL (7-18); BUN/Creat Ratio 21.6 RATIO (10-20); Calcium,Total 8.9 mg/dL (8.5-10.1); Chloride 98 mmol/L (98-107); Creatinine, Serum 0.69 mg/dL (0.70-1.30); EST Glomerular Filtration Rate 115 mL/min (>60); Est Glom Filt Rate - Afr Amer 139 mL/min (>60); Estimated Creatinine Clearance 54.43 ml/min; Glucose 107 mg/dL (74-106); Potassium 2.9 mmol/L (3.5-5.1); Sodium Level 139 mmol/L (136-145)
--- NOTE | 2021-11-22 14:48 | NURSING ---
MED SURG OBS JOPPMARIAJOSE WEAKNESS, FAILURE TO THRIVE, HYPOXIA, HYPOKALEMIA, AFIB, LYMPHOMA, SQ CA
--- NOTE | 2021-11-22 15:06 | HP.PCM.HOS_ITS ---
[facility] - [facility] General Date of Service: 11/22/21 Chief Complaint: Weakness and shortness of breath HPI Narrative ZAINAB CARRILLO, is a 86 M who presents with progressive weakness over the past few weeks. He is also been short of breath with exertion. Patient's recently contracted COVID-19 and the patient has checked himself at home and has been repeatedly negative and I did have a rapid test here that was also negative. Patient has been vaccinated for COVID-19. He presents just with this weakness and was noted to be hypoxic down to 85% with ambulation in the emergency room. Chest x-ray showed chronic changes including pleural effusion. His labs worsening but only for a potassium of 2.9 and patient did receive 40 mill equivalents of potassium chloride. Patient denies any fever or chills though he is having a productive cough. No lower extremity edema. Patient states that he has lost around 8 to 9 pounds over the past week as he is not eating much. 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) Paroxysmal atrial fibrillation Rectal bleeding Secondary pulmonary arterial hypertension Squamous carcinoma Home Medications sertraline 100 mg tablet 100 mg PO DAILY depression 04/26/17 [History Last Taken 11/22/21] metoprolol succinate 25 mg tablet,extended release 24 hr 12.5 mg PO DAILY bp 10/15/19 [History Last Taken 11/22/21] ondansetron HCl 4 mg tablet 4 mg PO Q6H PRN Nausea 12/04/19 [History Last Taken Unknown] atorvastatin 80 mg tablet 80 mg PO QHS cholesterol #90 tabs 04/20/20 [Rx Last Taken 11/22/21] diclofenac sodium 1 % topical gel 2 g topical ONCE pain 04/20/20 [History Last Taken 11/21/21] albuterol sulfate 90 mcg/actuation aerosol inhaler 2 puff inhalation Q6H PRN SOB 06/28/21 [History Last Taken 2 Weeks Ago ~11/08/21] apixaban 2.5 mg tablet (Eliquis) 2.5 mg PO BID blood thinner 11/22/21 [History Last Taken 11/22/21] aspirin 81 mg tablet,delayed release See Rx Instructions .Route .COMPLEX heart health 11/22/21 [History Last Taken 11/22/21] furosemide 40 mg tablet See Rx Instructions .Route .COMPLEX water pill 11/22/21 [History Last Taken 11/22/21] potassium chloride 20 mEq tablet,extended release 20 meq PO DAILY supplement 11/22/21 [History Last Taken 3 Days Ago ~11/19/21] Allergy/AdvReac Type Severity Reaction Status Date / Time ramipril Allergy Intermediate cough Verified 11/22/21 09:38 Family History Father , age 72 CVA (cerebral vascular accident) Mother , age 69 Diabetes CHF (congestive heart failure) Other Family history of CVA Surgical History H/O coronary artery bypass surgery (06/25/09) History of carpal tunnel release History of coronary artery stent placement (05/12/14) History of thoracic surgery Social History Smoking Status: Former smoker alcohol intake: current alcohol intake frequency: a few times a week substance use type: does not use caffeine: Yes what type of physical activity do you participate in: none frequency: does not exercise ROS ROS Narrative Swelling on his head from his squamous cell cancer is improved with immunotherapy. Immunotherapy was discontinued due to transaminitis. All review of systems were negative except as mentioned above in the history of present illness and the other review of systems. Vital Signs Vital Signs Vital Signs: 11/22/21 09:35 11/22/21 09:38 11/22/21 09:59 Temperature 36.6 C 36.6 C Temperature Source Temporal Temporal Pulse Rate 87 87 Respiratory Rate 18 18 Respiratory Effort Blood Pressure 141/80 H 141/80 H Blood Pressure Mean 100 100 Pulse Ox 97 97 92 Oxygen Delivery Method Room Air Room Air Room Air 11/22/21 09:59 11/22/21 10:21 11/22/21 12:54 Temperature Temperature Source Pulse Rate 59 L Respiratory Rate 29 H Respiratory Effort Short of Breath Labored Blood Pressure 140/59 H Blood Pressure Mean 86 Pulse Ox 94 94 Oxygen Delivery Method Room Air Room Air Room Air Weight Weight: 72.575 kg Body Mass Index (BMI) 22.9 Physical Exam Const alert and no apparent distress HEENT normocephalic and head/scalp atraumatic HEENT Narrative: Scalp lesions on middle and left side of his forehead. Resp normal respiratory effort, no retractions, no use of accessory muscles and clear to auscultation bilaterally Cardio regular rate, regular rhythm, S1 normal heart sound and S2 normal heart sound GI normal to inspection, nondistended, normoactive bowel sounds Extremity normal to inspection Neuro Sensorium / Orientation: awake and alert Results Lab / Micro Data Attestation: I reviewed the patient's lab results. Result Diagrams: 11/22/21 10:55 11/22/21 10:55 Labs: Laboratory Results - last 24 hr 11/22/21 10:55: WBC 10.4, RBC 4.28 L, Hgb 12.8 L, Hct 39.2 L, MCV 91.6, MCH 29.9, MCHC 32.7, RDW Std Deviation 50.5 H, RDW Coeff of Sofy 15.2 H, Plt Count 16 4, MPV 9.8, Immature Gran % (Auto) 0.400, Neut % (Auto) 84.7 H, Lymph % (Auto) 3.5 L, [place] % (Auto) 9.6, Eos % (Auto) 1.5, Baso % (Auto) 0.3, Absolute Neuts (auto) 8.8 H, Absolute Lymphs (auto) 0.37 L, Nucleated RBC % 0, Differential Comment COMMENT 11/22/21 10:55: Sodium 139, Potassium 2.9 L, Chloride 98, Carbon Dioxide 32.0, Anion Gap 9, BUN 15, Creatinine 0.69 L, Estim Creat Clear Calc 54.43, Est GFR (MDRD) Af Amer 139, Est GFR (MDRD) Non-Af 115, BUN/Creatinine Ratio 21.6 H, Glucose 107 H, Calcium 8.9 Micro: Microbiology 11/22/21 10:35 Nasal Secretion SARS-CoV-2 Antigen (Rapid) - Final Rhythm Strip Rhythm Strip: A-fib Rate: 73 Ectopy: None EKG Initial EKG: Attestation: I personally reviewed and interpreted this EKG as follows: Prior EKG tracings: available for review EKG Rhythm Intrepretation: Atrial Fibrillation Radiology Impression Chest X-Ray 11/22/21 11:00 IMPRESSION: Patchy bibasilar infiltrates worse on the right lung base with blunting of the right costophrenic angle Electronically Signed: Dionisio Mason MD at 12:01 EDT , Assessment & Plan Assessment/Plan (1) Adult failure to thrive: PLAN: Unclear etiology but may be multifactorial due to the patient's multiple medical comorbidities. Patient's rapid COVID-19 was negative. PCR has been ordered. This is been checked because the patient's has recently tested positive for COVID-19. Patient has tested himself daily at home and has been consistently negative. Will have PT and OT evaluate. (2) Hypoxia: PLAN: Patient not in any distress would not qualify this is acute hypoxic resp iratory failure but the patient was notably hypoxic. Patient does have a chronic pleural effusion. Patient does have a history of lymphoma but was never treated with radiation or surgery. Was treated solely with chemoimmunotherapy. 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 (4) Hypokalemia: PLAN: Secondary to chronic diuresis with furosemide Plan: * Patient received replacement in the emergency room. Patient takes 20 will equivalents daily. We will make that twice daily for now. * Check magnesium level. Replace if low. PLAN: Plan Chronic conditions * Squamous cell skin cancer: Follow-up with oncology. * Chronic atrial fibrillation: Continue with apixaban. And metoprolol succinate. * History of lymphoma: Had been treated previously with chemotherapy. Follow-up with oncology for monitoring and surveillance. VTE prophylaxis: Not indicated as patient is already anticoagulated. CODE STATUS: Addressed with the patient. Patient wishes to be full code at this time. Case discussed with the patient's daughter at bedside. Charges/Coding Visit Charges Inpatient E&M: 56126 Init Hosp L3
[2021-11-22] MEDS: Potassium Chloride Oral Tablet 20 MEQ 40 MEQ PO (15:10)
[2021-11-22] MEDS: Potassium Chloride Oral Tablet 20 MEQ PO (17:00)
[2021-11-22] MEDS: Furosemide 40 MG Tablet PO (17:00)
[2021-11-22] MEDS: Atorvastatin Calcium 80 MG Tablet PO (21:15)
[2021-11-22] MEDS: APIXABAN 2.5 MG TABLET PO (21:15)
[2021-11-23] VITALS (8 sets, daily range): BP systolic 110–130; BP diastolic 69–81; PULSE 77–91; RESP 16–20; TEMP 36.7–37.9; O2SAT 91–92
[2021-11-23 06:10] LABS: Absolute Lymphocyte Count 0.41 X10^3/uL (0.83-4.51); Absolute Neutrophil Count 10.6 X10^3/uL (2.0-7.7); Basophil# 0.05 X10^3/uL; Basophil% 0.4 % (0-1); Eosinophil# 0.07 X10^3/uL; Eosinophils% 0.6 % (0-5); Hematocrit 38.8 % (40-54); Hemoglobin 12.7 g/dL (13.0-16.5); Lymphocyte # 0.41 X10^3/ul (0.83-4.51); Lymphocyte % 3.3 % (19-41); Mean Corp Hgb Conc 32.7 g/dL (32-36); Mean Corpuscular Hgb 29.1 pg (27.0-32.0); Mean Corpuscular Volume 88.8 fL (80-94); Mean Platelet Vol. 10.2 fl (6.2-12.0); Monocyte# 1.11 X10^3/uL; NRBC Flagged by Analyzer 0 % (0-5); Neutrophil # 10.56 X10^3/uL (2.7-7.7); Neutrophil % 85.8 % (47-70); POSITIVE DIFFERENTIAL YES; Platelet Count 186 K/mm3 (150-450); RBC Distribution Width CV 14.9 % (11.6-14.6); RBC Distribution Width SD 48.8 fl (35.1-43.9); Red Blood Count 4.37 M/mm3 (4.6-6.2); White Blood Count 12.3 K/mm3 (4.4-11.0)
[2021-11-23 06:31] LABS: Anion Gap 4 (5-15); BUN 13 mg/dL (7-18); BUN/Creat Ratio 20.2 RATIO (10-20); Calcium,Total 8.8 mg/dL (8.5-10.1); Chloride 101 mmol/L (98-107); Creatinine, Serum 0.64 mg/dL (0.70-1.30); EST Glomerular Filtration Rate 125 mL/min (>60); Est Glom Filt Rate - Afr Amer 151 mL/min (>60); Glucose 124 mg/dL (74-106); Potassium 3.3 mmol/L (3.5-5.1); Sodium Level 139 mmol/L (136-145)
[2021-11-23 06:40] LABS: Differential Indicated SCAN CRITERIA MET
[2021-11-23 06:50] LABS: Differential Comment SCANNED
[2021-11-23] MEDS: Metoprolol(XL)Succ 25 MG Tablet 12.5 MG PO (09:09)
[2021-11-23] MEDS: Aspirin E.C. 81 MG Tablet PO (09:09)
[2021-11-23] MEDS: Furosemide 40 MG Tablet 80 MG PO (09:09)
[2021-11-23] MEDS: Sertraline 100 MG Tablet PO (09:09)
[2021-11-23] MEDS: Potassium Chloride Oral Tablet 20 MEQ PO ×2 (09:10→17:40)
[2021-11-23] MEDS: APIXABAN 2.5 MG TABLET PO ×2 (09:10→21:05)
[2021-11-23] MEDS: FLU VACC QS2022-23(6MOS UP)/PF 60 MCG/0.5 ML SYRINGE IM (09:21)
[2021-11-23 09:47] LABS: BNP,B-Type NATRIURETIC PEPTIDE 684.4 pg/mL (0-100)
--- NOTE | 2021-11-23 11:00 | CASEMGMT ---
RN TERRY Face to Face with patient for initial transition planning/care coordination assessment. RN CM introduced self and role at [facility]. Patient sitting in chair, alert and oriented. Patient willing to participate in assessment and is able to answer all questions appropriately. Care providers, pharmacy, and demographics verified. Patient wishes to discharge home, denies need for home health at this time. Patient states he has no further needs or concerns at this time. CM to follow for discharge planning needs that may arise. PCP: [facility]: Say, oncologist [facility]; Matthew, follow for lymphoma at [facility]; Jossie, drying oven attendant Preferred Pharmacy: [facility] Insurance: [facility] [place] Benefit: yes Living Will/HPOA: yes, Floridalma Amador, HPOA LNOK: , son Living Arrangements: Patient lives with in a 2nd floor condo with elevator to enter. Patient states he is independent at home. Transportation: self, DME/HHC: Patient states he has shower chair, raised toilet, cane, walker, grab bars, and walker at home. Patient has had [facility] in the past. Disposition Plan: Patient to discharge home with family support and follow-up plans in place. Paz DIOR, RN, CM
--- NOTE | 2021-11-23 11:28 | CASEMGMT ---
Social Work SW in to verify Advanced Directives. Pt reported thought these documents were brought in during last visit. SW confirmed pt , Floridalma Amador, is HCPOA. Pt stated Floridalma is covid positive and cannot bring HCPOA or LW documents in at this time. Pt stated would bring them next time if remembers. SW checked pt converted e-chart. No HCPOA/LW documents on file. VLAD Terry
--- NOTE | 2021-11-23 12:21 | PN.HOSP_ITS ---
Documented by User: Antonette Lozada NP, HEEL NAIL RASPER-C 11/23/21 13:22 Subjective Subjective Patient seen and examined. Breathing currently stable however states he becomes short of breath with light activity. Reports postnasal drainage. States he has these episodes intermittently, last occurring 6 months ago. His son has wanted him to see pulmonary medicine. Pulmonary medicine consult placed. Objective Data Objective Data Vital Signs: Vital Signs Temp Pulse Resp BP Pulse Ox O2 Del Method O2 Flow Rate 98.0 F 91 16 129/81 H 92 Room Air 2 11/23/21 11:10 11/23/21 11:10 11/23/21 11:10 11/23/21 11:10 11/23/21 11:10 11/23/21 11:10 11/23/21 05:11 Oxygen Flow Rate (L/min) 2 Oxygen Delivery Method Room Air Weight: 158 lb 11.725 oz Body Mass Index (BMI) 22.1 Intake & Output: Intake and Output for Last 24 Hours 11/21/21 11/22/21 11/23/21 23:59 23:59 23:59 Intake Total 850 / 850 Balance 850 / 850 Medical Nutrition Assessment Dietitian: Malnutrition Criteria Met Start: 11/23/21 10:39 Freq: Status: Active Protocol: Document 11/23/21 10:39 RMA (Rec: 11/23/21 10:39 RMA [id number]) Nutrition Malnutrition Evidence of Malnutrition Exists Yes Malnutrition (severe): Chronic Evidenced By Suboptimal Energy Intake ( Severe),Weight Loss (Severe) Clinical Problem Chronic Disease or Condition Related Malnutrition Etiology 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 Will add ensure plus high protein shake with ice cream at lunch and dinner. Will add ensure pudding w/ breakfast for tolerance. Adjust ONS as needed to prevent further wt loss and optimize oral intake at meals. Lab / Micro Data Result Diagrams: 11/23/21 05:55 11/23/21 05:55 Labs: Laboratory Results - last 24 hr 11/22/21 10:05: Magnesium 2.0 11/22/21 14:38: COVID-19 (MOMO) Not Detected 11/23/21 05:55: WBC 12.3 H, RBC 4.37 L, Hgb 12.7 L, Hct 38.8 L, MCV 88.8, MCH 29.1, MCHC 32.7, RDW Std Deviation 48.8 H, RDW Coeff of Sofy 14.9 H, Plt Count 186, MPV 10.2, Immature Gran % (Auto) 0.900, Neut % (Auto) 85.8 H, Lymph % (Auto) 3.3 L, Hamlin % (Auto) 9.0, Eos % (Auto) 0.6, Baso % (Auto) 0.4, Absolute Neuts (auto) 10.6 H, Absolute Lymphs (auto) 0.41 L, Nucleated RBC % 0, Differential Comment SCANNED 11/23/21 05:55: Sodium 139, Potassium 3.3 L, Chloride 101, Carbon Dioxide 34.0 H , Anion Gap 4 L, BUN 13, Creatinine 0.64 L, Estim Creat Clear Calc 54.00, Est GFR (MDRD) Af Amer 151, Est GFR (MDRD) Non-Af 125, BUN/Creatinine Ratio 20.2 H, Glucose 124 H, Calcium 8.8 11/23/21 05:55: B-Natriuretic Peptide 684.4 H Micro: Microbiology 11/22/21 14:38 Mucosa - Nasopharyngeal Respiratory Panel (PCR) - Final 11/22/21 10:35 Nasal Secretion SARS-CoV-2 Antigen (Rapid) - Final Rhythm Strip Rhythm Strip: A-fib Rate: 73 Ectopy: None Physical Exam Const alert and oriented x3 Nutritional Appearance: cachectic HEENT normocephalic Mouth: dry mucous membranes Eyes PERRL, EOMs intact bilaterally and conjunctivae normal Neck no lymphadenopathy Resp clear to auscultation bilaterally Auscultation: diminished lung sounds Cardio regular rate, regular rhythm and no murmurs Peripheral Pulses: pulses 2+ throughout GI normal to inspection, nondistended, normoactive bowel sounds, non-tender and non-distended Extremity normal to inspection Skin no rashes or lesions noted Skin Narrative: Left scalp lesions from recent squamous cell treatment. Lesions: no lesions Rashes: no rashes Trauma: no lacerations or abrasions Neuro CN's II-XII intact bilaterally, no focal motor deficits, no sensory deficits noted and deep tendon reflexes 2+ bilaterally Psych mental status grossly normal and affect normal Assessment & Plan Assessment/Plan (1) Hypoxia: (2) Adult failure to thrive: PLAN: Plan 1. Hypoxia-underlying chronic pleural effusions. History of lymphoma. Oxygen now stable on room air. Patient reports this has occurred intermittently in the past. He states he typically starts with postnasal drainage followed by cough and then becomes hypoxic. Speech therapy consulted. Patient requesting pulmonary medicine consult. Obtain echocardiogram. Albuterol and DuoNeb aer osols. No evidence of pneumonia. Viral panel negative. Consider CT of chest pending pulmonary consult. 2. Dysphagia-Zenker's diverticulum. Speech therapy consult as noted above. 3. Hypotension-replace per protocol. Trend BMP. 4. Chronic atrial fibrillation- on Eliquis, metoprolol. 5. History of lymphoma, squamous cell carcinoma-continue outpatient follow-up. 6. Depression-on sertraline. 7. Severe protein calorie malnutrition-as evidenced by muscle and fat loss with cachectic appearance. Dietitian consulted for recommendations. DVT prophylaxis- Eliquis This patient was seen by Antonette Lozada NP-C under the supervision of Dr. Mancuso. Time spent examining patient, reviewing data and subsequent management of care: 15 minutes Documented by User: Dr. Edin Mancuso DO 11/23/21 16:50 Objective Data Lab / Micro Data Result Diagrams: 11/23/21 05:55 11/23/21 05:55 Assessment & Plan Assessment/Plan (1) Hypoxia: (2) Adult failure to thrive: Charges/Coding Addendum Addendum: Patient was seen and examined today independently of Antonette Lozada, at the time of this dictation, he is on room air. His daughter is in the room at the time my examination. I talked briefly with pulmonary medicine about his care, pulmonary medicine requested a CT of the chest be performed and speech therapy see the patient, speech therapy seeing the patient this afternoon. On examination he appeared in good health and spirits. Vital signs as documented. Skin warm and dry and without overt rashes. Neck without JVD, neck was supple, trachea midline, thyroid was normal. Lungs clear bilaterally, normal air movement was noted. Heart exam notable for irregular rhythm, there is a 3/6 systolic murmur noted at the left sternal border and apex, no rubs or gallops were noted. Abdomen unremarkable and without evidence of organomegaly, masses, or abdominal aortic enlargement. Bowel sounds are present, abdomen is not distended. Extremities nonedematous, no cyanosis was noted, no clubbing was noted. Neuro: Cranial nerves II through XII are grossly intact, no focal motor deficits were noted, sensation to light touch and pinprick intact, motor exam 5/5 throughout. Psych: Patient is alert and oriented x3, he does not appear anxious or depressed, he does not appear agitated. Impression: #1 hypoxia-etiology unclear at this time, pulmonary medicine is seeing the patient, he will be evaluated by speech therapy for possible aspiration. #2 bilateral pulmonary infiltrates-possibly secondary to aspiration pneumonia, pulmonary medicine requested the patient be placed on IV antibiotics, I placed the patient on IV Unasyn, CT of the chest today showed patchy bilateral pulmonary infiltrates worse in the right hemithorax, there is also noted to be bilateral pleural effusions right greater than left with partially loculated fluid in the right major fissure #3 chronic atrial fibrillation-patient is on rate limiting medications and anticoagulation #4 severe mitral regurg-patient will have an echocardiogram performed, he is on IV Lasix at this time #5 elevated beta natruretic peptide indicative of congestive heart failure- patient is currently on IV Lasix, echocardiogram was ordered #6 ischemic cardiomyopathy-patient will remain on his present medications #7 chronic severe protein and caloric malnutrition related to inadequate oral intake, altered GI function, and increased energy expenditure as evidenced by approximately 12% weight loss x1 year, 6% weight loss over the past 1 to 2 month s, and approximately 3% weight loss in the past 1 to 2 weeks. Need for mechanically altered food due to esophageal outpouches, diet was liberalized to regular/no added salt and adjust food consistency to easy to chew/thin liquids. Ensure Plus high-protein shake with ice cream and lunch and dinner was added, Ensure pudding with breakfast was added. Nutritional services will follow patient I have reviewed Antonette Lozada's progress note including her medical assessment and plan of care and with the above additions endorse it. Total clinical time spent by myself addressing the patient's medical issues, reviewing the data, and collaborating with patient's care team: 45-minutes Visit Charges Inpatient E&M: 61275 Subs Hosp L2
--- NOTE | 2021-11-23 13:16 | ECHOD_ITS ---
Version 3 Reason For Study: DYSPNEA Procedure This was a 2D Doppler, Color Flow transthoracic echocardiogram. Exam performed portable in patient room. Left Ventricle Normal LV size. Mild to moderate segmental systolic dysfunction (see wall motion). The estimated ejection fraction is 50 %. Infero-Basal: Akinetic. There are regional wall motion abnormalities as specified. Right Ventricle Normal RV size. Normal systolic function. Atria The left atrium is severely enlarged. The right atrium is moderately enlarged. Mitral Valve Mild mitral valve prolapse. Moderate (2+) eccentric mitral valve insufficiency. Tricuspid Valve Normal tricuspid valve. Mild tricuspid valve insufficiency. Pulmonary artery systolic pressure is 38 mmHg. Aortic Valve Trisinus/trileaflet aortic valve. Mild focal aortic valve thickening. Mild (1+) aortic valve insufficiency. Pulmonic Valve Normal pulmonic valve. Great Vessels Normal aortic root. The pulmonary artery is normal size. Normal inferior vena cava. Pericardium/Pleural No pericardial effusion. MMode/2D Measurements & Calculations LVIDd: 6.7 cm IVSd: 1.2 cm Ao root diam: 3.5 cm LVIDs: 5.6 cm LVPWd: 0.74 cm RVDd: 3.4 cm FS: 17.3 % LAV(MOD-sp2): 240.9 ml LVAd ap4: 35.4 cm2 SV(MOD-sp4): 67.1 ml LVLd ap4: 7.8 cm EDV(MOD-sp4): 135.7 ml EDV(sp4-el): 135.6 ml LVAs ap4: 23.0 cm2 LVLs ap4: 6.9 cm ESV(MOD-sp4): 68.6 ml ESV(sp4-el): 65.3 ml EF(MOD-sp4): 49.5 % EF(sp4-el): 51.8 % SV(sp4-el): 70.3 ml Aortic Valve Planimetry: 3.0 cm2 LA A4 area: 53.1 cm2 LA dimension(2D): 6.1 cm RA A4 area: 29.1 cm2 Time Measurements MV dec time: 0.20 sec Doppler Measurements & Calculations MV E max contreras: 116.9 cm/sec Lat Peak E' Contreras: 15.2 cm/sec Med Peak E' Contreras: 6.6 cm/sec E/E' lat: 7.7 E/E' med: 17.8 MV V2 max: 125.4 cm/sec MV P1/2t max contreras: 117.8 cm/sec Ao V2 max: 125.5 cm/sec MV max P.3 mmHg MV P1/2t: 102.8 msec Ao max P.3 mmHg MV V2 mean: 63.0 cm/sec Ao V2 mean: 84.5 cm/sec MV mean P.1 mmHg MV dec slope: 335.7 cm/sec2 Ao mean P.3 mmHg MV V2 VTI: 26.1 cm MVA(P1/2t): 2.1 cm2 Ao V2 VTI: 23.9 cm AI max contreras: 454.4 cm/sec LV V1 max: 100.3 cm/sec MR max contreras: 650.9 cm/sec AI max P.6 mmHg LV V1 max P.1 mmHg MR max P.5 mmHg LV V1 mean P.1 mmHg MR mean contreras: 481.6 cm/sec AI dec slope: 223.6 cm/sec2 LV V1 mean: 66.0 cm/sec MR mean P.0 mmHg AI P1/2t: 595.3 msec LV V1 VTI: 15.9 cm MR VTI: 187.3 cm PA V2 max: 123.4 cm/sec TR max contreras: 291.8 cm/sec PA V2 mean: 83.5 cm/sec PI dec slope: 133.2 cm/sec2 TR max P.1 mmHg ECHO/Echo Complete Interpretation Summary Normal LV size. Mild to moderate segmental systolic dysfunction (see wall motion). The estimated ejection fraction is 50 %. The left atrium is severely enlarged. Pulmonary artery systolic pressure is 38 mmHg. Moderate (2+) eccentric mitral valve insufficiency. Compared to previous study, the left ventricular systolic function is the same. . Ordering Physician: Antonette Lozada Referring Physician: Justin Leavitt M.D. Performed By: Carlita Barfield RCS
--- NOTE | 2021-11-23 14:16 | CT_ITS ---
STUDY: CTA CHEST REASON FOR EXAM: Male, 86 years old. Hypoxia. Increasing shortness of breath. History of lymphoma. RADIATION DOSAGE (If Supplied By Facility): CTDIvol = ( 9.92 ) mGy, DLP = ( 322.19 ) mGycm TECHNIQUE: The examination was performed with the intravenous administration of IV 100mL Isovue-370. Post-processing of the angiographic images was performed, with multiplanar reformation and 3D reconstruction. Individualized dose optimization techniques were used for this CT. COMPARISON: Comparison is made with prior study dated 11/15/2019. FINDINGS: A right-sided Port-A-Cath is seen with the tip in the superior vena cava. Normal enhancement of the main pulmonary artery and right and left pulmonary arteries. Normal enhancement of the bilateral peripheral pulmonary arteries. There is no demonstrated pulmonary embolism. Normal thoracic aorta and visualized great vessels. There is no demonstrated aortic dissection. There are calcifications of the coronary arteries. Moderate cardiomegaly with enlargement of the left atrium. Prior CABG. There are calcified mediastinal lymph nodes. Normal hilar regions. Normal visualized trachea and bronchi. The lungs are well expanded. Small bilateral pleural effusions right greater than left. Fluid is also seen in the right major fissure. A portion of the right pleural effusion is loculated. Airspace disease is seen in the right upper lobe. Airspace disease also seen in the right middle and right lower lobes as well as the left lower. Normal chest wall structures. There are degenerative changes of thoracic spine. Gaseous distention of the esophagus down to its distal portion. CT/CTA Chest W/WO Contrast IMPRESSION: Patchy pulmonary infiltrates worse in the right hemithorax as described. Bilateral pleural effusions right greater than left with fluid in the right major fissure and partially loculation. Electronically Signed: Dionisio Mason MD at 15:23 EDT ,
--- NOTE | 2021-11-23 15:03 | NURSING ---
pt off unit, unable to give dose of iv lasix
[2021-11-23] MEDS: Furosemide 40 MG/4 ML Vial IV ×2 (15:42→21:03)
[2021-11-23] MEDS: 0.9% Saline Lock 10 ML Syringe IV ×2 (15:42→21:03)
--- NOTE | 2021-11-23 18:41 | CON.PCM.CC_ITS ---
Assessment & Plan Assessment/Plan (1) Acute respiratory failure with hypoxemia: PLAN: Likely related to aspiration pneumonia which may have occurred as much as 2 weeks ago. 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 All are risk factors for chronic aspiration -Agree with antibiotics for community-acquired pneumonia -Speech evaluation and modified barium swallowing study -Consider GI evaluation after swallowing study (2) Pleural disease: PLAN: This patient's pleural disease has progressed since [address] scan. Pleural thickening is more masslike at the right posterior lung base, and the patient's severe weight loss and failure to thrive, weakness, this may represent a new primary malignancy. -Recommend ultrasound thoracentesis of the posterior right lung mass, if fluid is present. -Would like to obtain his previous PET scans from [facility] to see if this area showed uptake in 2020. The patient stated his last PET scan was clean . -The calcified pleural thickening at the left lung base has remained radiographically stable for the past 2 years. This may have represented the area where he had his large-volume thoracentesis and chest tube in 2011. It likely represents chronic scarring. He has no history of asbestos exposure. (3) Immunosuppressed status: PLAN: His weight loss and anorexia, with frequent aspiration is of concern. He has had at least a 4-month pause off immunotherapy and chemotherapy. I would defer to dietary and oncology regarding weight management and future regimens. (4) History of coronary artery stent placement: PLAN: His cardiac status seems relatively stable, he has chronic cardiomegaly and pulmonary hypertension. See sleep apnea, below (5) Chronic anticoagulation: PLAN: Management per hospitalist group; indication small pulmonary embolism in October 2019. Chronic atrial fibrillation. (6) History of lymphoma: PLAN: Will defer to oncology (7) Longstanding persistent atrial fibrillation: PLAN: Will defer to primary and cardiology. However, his CT scan and clinical presentation suggest a primary pulmonary rather than a primary cardiac decompensation at this time. -Echocardiogram -BNP (8) Aspiration pneumonia due to regurgitated food: PLAN: As above (9) Scalp mass: (10) SONYA on CPAP: PLAN: - Maintain O2 saturation 92% and above to minimize cardiac strain -oxygen treatment will need to be coordinated with his sleep apnea management. -Obtain old polysomnography results -Prescribe CPAP nightly and with naps at his usual settings; I would like to wait to prescribe CPAP until we are sure he does not have central sleep apnea. -Instruct the patient on correct cleaning techniques for CPAP equipment - replacing plasticware (tubing, etc q 3 to 6 mo. per alarm security or surveillance monitor recommendations. PLAN: Plan Pulmonary will follow with you, thank you for the consultation Care time spent during this complex consultation, with patient at bedside, review of documentation, lab results, radiology and other test results, discussion with colleagues and ancillary staff, clinical management of patient, and updating family if applicable, was 120 minutes. [place] [address]. HPI Consult Data Date of Consult: 11/23/21 HPI Narrative Reason for Consultation: Dyspnea HPI Narrative: ZAINAB CARRILLO, is a 86 M who presents hypoxic to 88% on room air with days to weeks of gradually increasing shortness of breath and cough. He has had chronic difficulties with dysphagia, and was told of having a pouch in his esophagus and on CT scan shows tracheomegaly of 3.5 cm in the AP diameter. He has had difficulty with eating and regurgitation, sleeps in a semi-Mcknight's position, and notes significant difficulty when he lays flat. About 2 weeks ago he had a large meal and then took a nap laying flat, had a large regurgitation severe coughing and felt that that was the beginning of his current symptoms, he stated it felt like he did when he was last admitted here in October 2019 for respiratory failure and cough. Work-up at that time showed no evidence of PE but did show bilateral pleural thickening with mild pulmonary artery hypertension, tracheomegaly of 35 mm, left pleural calcification right base mass versus mediastinal thickening, and nonspecific mediastinal adenopathy. He improved with antibiotics, and has prac ticed careful swallowing since then. He has a history of obstructive sleep apnea for approximately 5 to 6 years, he does not recall his pressures, last use his CPAP 2 days ago and does use it regularly. He does not clean it well however he was warned of the possibility for sinus and respiratory infections from CPAP equipment that is not cleaned properly. 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 This is also being treated at [facility]. His past pulmonary history is remarkable for SONYA, regurgitation and aspiration, probable pneumonia, left thoracoscopy PE when his lymphoma was diagnosed in 2011 with a 4 L pleural effusion tapped at the time. 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 He denies previous tuberculosis exposure, pulmonary embolism, DVT, rib fractures, chest trauma, pneumothorax, COPD, sinusitis or polyps, asthma, allergies, and has never smoked cigarettes. He has had occasional smoker social smoking of pipes and cigars. Although his dentition is poor and he has a partial plate he has no recent dental abscesses or infection or loose teeth. He thinks he may have seasonal allergies but was never tested. 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 He has had multiple exposures to the usual farm antigens and chemicals. He denied ever working with his best is. He never reported acute illness from a acute toxic exposure. He has never used inhalers or nasal sprays. 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 His past medical history includes hypertension, hyperlipidemia, lymphoma, occasional alcohol use, depression on sertraline, pulmonary hypertension, nonrheumatic mitral regurgitation, CAD with stent and atrial fibrillation on chronic apixaban, weakness, history of lymphoma with most recent immunotherapy being 4 months ago. His oncologist is at the [facility] as are many of his records. He had CABG in May 2009, and denied postoperative pleural effusion, thoracentesis, or pneumonia. He is unaware of pleural thickening. 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) Paroxysmal atrial fibrillation Rectal bleeding Secondary pulmonary arterial hypertension Squamous carcinoma Home Medications sertraline 100 mg tablet 100 mg PO DAILY depression 04/26/17 [History Last Taken 11/22/21] metoprolol succinate 25 mg tablet,extended release 24 hr 12.5 mg PO DAILY bp 10/15/19 [History Last Taken 11/22/21] ondansetron HCl 4 mg tablet 4 mg PO Q6H PRN Nausea 12/04/19 [History Last Taken Unknown] atorvastatin 80 mg tablet 80 mg PO QHS cholesterol #90 tabs 04/20/20 [Rx Last Taken 11/22/21] diclofenac sodium 1 % topical gel 2 g topical ONCE pain 04/20/20 [History Last Taken 11/21/21] albuterol sulfate 90 mcg/actuation aerosol inhaler 2 puff inhalation Q6H PRN SOB 06/28/21 [History Last Taken 2 Weeks Ago ~11/08/21] apixaban 2.5 mg tablet (Eliquis) 2.5 mg PO BID blood thinner 11/22/21 [History Last Taken 11/22/21] aspirin 81 mg tablet,delayed release See Rx Instructions .Route .COMPLEX heart health 11/22/21 [History Last Taken 11/22/21] furosemide 40 mg tablet See Rx Instructions .Route .COMPLEX water pill 11/22/21 [History Last Taken 11/22/21] potassium chloride 20 mEq tablet,extended release 20 meq PO DAILY supplement 11/22/21 [History Last Taken 3 Days Ago ~11/19/21] Allergy/AdvReac Type Severity Reaction Status Date / Time ramipril Allergy Intermediate cough Verified 11/22/21 09:38 Family History Father , age 72 CVA (cerebral vascular accident) Mother , age 69 Diabetes CHF (congestive heart failure) Other Family history of CVA Surgical History H/O coronary artery bypass surgery (06/25/09) History of carpal tunnel release History of coronary artery stent placement (05/12/14) History of thoracic surgery Knee joint replacement status Social History Smoking Status: Former smoker alcohol intake: current alcohol intake frequency: a few times a week substance use type: does not use caffeine: Yes what type of physical activity do you participate in: none frequency: does not exercise ROS ROS Narrative 12 system review as above, plus:. ENT: Chronic aspiration, poor dentition Neck, vocal cord implant Chest: As above Cardiac: As above, no acute chest pain increased palpitations jaw pain arm pain or CHF or leg edema Abdomen: Denies any nausea vomiting but does have regurgitation dysphagia and had vomiting and aspiration 2 weeks ago ID: His has COVID, he is COVID-negative x2 this admission and was fact vaccinated with Moderna twice in 2020. He had his influenza vaccine today. GI: His immunotherapy was stopped 4 months ago for lymphoma by Dr. Richardson Castro at [facility] for his lymphoma. Physical Exam Narrative Well-developed, pleasant, articulate gentleman in no acute distress. HEENT: Poor dentition, mucous membranes moist, no thrush. Voice is not hoarse. Neck is supple with no JVD thyromegaly or mass. Lungs have crackles at both lung bases, mildly diminished breath sounds at the right and left lateral base, poor excursion, however the incentive spirometry is 1500+ cc. Perhaps an exam artifact. No wheezes or rhonchi no pleural rubs. Heart irregular S1-S2 no murmus Abdomen is soft and nontender no organomegaly or mass Extremities have no clubbing cyanosis or edema, patient is cachectic. BMI is 22. Neuro was intact and grossly nonfocal although diffusely weak. He is alert and oriented x3 Psych: He is articulate and with good memory and insight Skin has multiple scabbed raised lesions on the top of his head, left frontal/parietal area, currently not draining Endocrine: No fevers or sweats, no tremor. Medical Records Data Attestation: I reviewed the patient's medical records Medical records narrative: With the exception of not reviewing charts outside of the [facility] system via [facility] Medical Nutrition Assessment Dietitian: Malnutrition Criteria Met Start: 11/23/21 10:39 Freq: Status: Active Protocol: Document 11/23/21 10:39 RMA (Rec: 11/23/21 10:39 RMA [id number]) Nutrition Malnutrition Evidence of Malnutrition Exists Yes Malnutrition (severe): Chronic Evidenced By Suboptimal Energy Intake ( Severe),Weight Loss (Severe) Clinical Problem Chronic Disease or Condition Related Malnutrition Etiology 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 Will add ensure plus high protein shake with ice cream at lunch and dinner. Will add ensure pudding w/ breakfast for tolerance. Adjust ONS as needed to prevent further wt loss and optimize oral intake at meals. Lab / Micro Data Attestation: I reviewed the patient's lab results. Result Diagrams: 11/23/21 05:55 11/23/21 05:55 Labs: Laboratory Results - last 24 hr 11/23/21 05:55: WBC 12.3 H, RBC 4.37 L, Hgb 12.7 L, Hct 38.8 L, MCV 88.8, MCH 29.1, MCHC 32.7, RDW Std Deviation 48.8 H, RDW Coeff of Sofy 14.9 H, Plt Count 186, MPV 10.2, Immature Gran % (Auto) 0.900, Neut % (Auto) 85.8 H, Lymph % (Auto) 3.3 L, [place] % (Auto) 9.0, Eos % (Auto) 0.6, Baso % (Auto) 0.4, Absolute Neuts (auto) 10.6 H, Absolute Lymphs (auto) 0.41 L, Nucleated RBC % 0, Differential Comment SCANNED 11/23/21 05:55: Sodium 139, Potassium 3.3 L, Chloride 101, Carbon Dioxide 34.0 H , Anion Gap 4 L, BUN 13, Creatinine 0.64 L, Estim Creat Clear Calc 54.00, Est GFR (MDRD) Af Amer 151, Est GFR (MDRD) Non-Af 125, BUN/Creatinine Ratio 20.2 H, Glucose 124 H, Calcium 8.8 11/23/21 05:55: B-Natriuretic Peptide 684.4 H Micro: Microbiology 11/22/21 14:38 Mucosa - Nasopharyngeal Respiratory Panel (PCR) - Final, neg ative Imaging: CT angiogram of the chest November 23, 2021 was significant for: A Port-A-Cath in the right subclavian, new right upper lobe, right middle lobe, right lower lobe, and left lower lobe airspace disease, Bilateral pleural effusions right greater than left partially loculated. My review and comparison with prior CT suggests the RLL posterior pleural base abnormality on image #107 is mass-like, has irregular borders, and has enlarged. The L base pleural calcified mass on image #107 is still present. Rhythm Strip Rhythm Strip: A-fib Rate: 73 Ectopy: None Radiology Impression Chest CTA 11/23/21 14:16 IMPRESSION: Patchy pulmonary infiltrates worse in the right hemithorax as described. Bilateral pleural effusions right greater than left with fluid in the right major fissure and partially loculation. Electronically Signed: Dionisio Mason MD at 15:23 EDT ,
[2021-11-23] MEDS: Atorvastatin Calcium 80 MG Tablet PO (21:05)
[2021-11-24] VITALS (8 sets, daily range): BP systolic 117–137; BP diastolic 70–84; PULSE 66–80; RESP 16–24; TEMP 36.3–37.1; O2SAT 90–96
[2021-11-24] MEDS: 0.9% Saline Lock 10 ML Syringe IV ×3 (00:29→20:55)
[2021-11-24] MEDS: Furosemide 40 MG/4 ML Vial IV (05:20)
[2021-11-24 06:45] LABS: Absolute Lymphocyte Count 0.41 X10^3/uL (0.83-4.51); Absolute Neutrophil Count 10.9 X10^3/uL (2.0-7.7); Basophil# 0.05 X10^3/uL; Basophil% 0.4 % (0-1); Eosinophil# 0.23 X10^3/uL; Eosinophils% 1.8 % (0-5); Hematocrit 41.4 % (40-54); Hemoglobin 13.4 g/dL (13.0-16.5); Lymphocyte # 0.41 X10^3/ul (0.83-4.51); Lymphocyte % 3.3 % (19-41); Mean Corp Hgb Conc 32.4 g/dL (32-36); Mean Corpuscular Hgb 28.9 pg (27.0-32.0); Mean Corpuscular Volume 89.4 fL (80-94); Mean Platelet Vol. 10.8 fl (6.2-12.0); Monocyte% 7.2 % (0-10); NRBC Flagged by Analyzer 0 % (0-5); Neutrophil # 10.87 X10^3/uL (2.7-7.7); Neutrophil % 86.6 % (47-70); POSITIVE DIFFERENTIAL YES; Platelet Count 216 K/mm3 (150-450); RBC Distribution Width CV 15.1 % (11.6-14.6); RBC Distribution Width SD 49.4 fl (35.1-43.9); Red Blood Count 4.63 M/mm3 (4.6-6.2); White Blood Count 12.6 K/mm3 (4.4-11.0)
[2021-11-24 06:47] LABS: Differential Indicated SCAN CRITERIA MET
[2021-11-24 07:06] LABS: Anion Gap 8 (5-15); BUN 12 mg/dL (7-18); BUN/Creat Ratio 18.2 RATIO (10-20); Calcium,Total 8.6 mg/dL (8.5-10.1); Chloride 96 mmol/L (98-107); Creatinine, Serum 0.66 mg/dL (0.70-1.30); EST Glomerular Filtration Rate 121 mL/min (>60); Est Glom Filt Rate - Afr Amer 147 mL/min (>60); Glucose 107 mg/dL (74-106); Potassium 2.9 mmol/L (3.5-5.1); Sodium Level 137 mmol/L (136-145)
[2021-11-24 07:12] LABS: Differential Comment SCANNED
[2021-11-24] MEDS: Metoprolol(XL)Succ 25 MG Tablet 12.5 MG PO (08:21)
--- NOTE | 2021-11-24 08:44 | NURSING ---
echo in progress at bedside
[2021-11-24] MEDS: Aspirin E.C. 81 MG Tablet PO (09:18)
[2021-11-24] MEDS: Ensure Plus High Protein 120 ML LIQUID PO ×3 (09:18→14:36)
[2021-11-24] MEDS: APIXABAN 2.5 MG TABLET PO ×2 (09:19→20:58)
[2021-11-24] MEDS: Potassium Chloride Oral Tablet 20 MEQ PO ×2 (09:19→14:36)
[2021-11-24] MEDS: Sertraline 100 MG Tablet PO (09:22)
[2021-11-24] MEDS: Potassium Chloride Oral Tablet 20 MEQ 40 MEQ PO (10:18)
--- NOTE | 2021-11-24 13:07 | NURSING ---
off unit for testing
--- NOTE | 2021-11-24 13:15 | SP.MBSS_ITS ---
Modified Barium Swallow - Patient Information Study Date: 11/24/21 Study Time: 12:30 Direct Billable Minutes: 90 Total Minutes procedure & reportin Diagnosis: Aspiration PNA due to regurgitated food (J69.0) Referring Physician: Edin Mancuso Reason for Referral: Objectively assess swallow function, risk for aspiration, and determine recommendations for least restrictive diet textures and compensatory strategies to improve safety of swallow. Medical History: Jose Amador is an 86-year-old male with PMH including HTN, immunosuppressed status, A fib, lymphoma, old AR (SEE full PMH in H&P) who presented to [facility] ED 11/22/2021 with progressive weakness over the past few weeks. He has also been short of breath with exertion. Patient's recently contracted COVID-19 and the patient has checked himself at home and has been repeatedly negative and the patient had a rapid test here that was also negative. In ED, pt was hypoxic down to 85% with ambulation. Chest X-ray revealed patchy bibasilar infiltrates worse on the right lung base with blunting of the right costophrenic angle. Patient states that he has lost around 8 to 9 pounds over the past week as he is not eating much. Per hospitalist's progress note, the patient has a dysphagia with Zenker's diverticulum. Pt has previous MBSS and dysphagia treatment ~2-3 year ago with [facility]. He was referred for ST consult during this hospitalization due to concern for swallowing difficulty. Following BSE, the patient was recommended to continue Easy to Chew textures / Thin liquids with aspiration and reflux precautions. Stockbroker recommended MBSS to further assess aspiration risk due to aspiration PNA. Current Diet Ordered: Easy to Chew textures / Thin liquids Dentition: WNL Mental Status: WNL Respiratory Status: Oxygenating on Room Air - Penetration-Aspiration Scale Penetration-Aspiration Scale: OBJECTIVE ASSESSMENT OF SWALLOW FUNCTION (QUANTITATIVE ? PER TRIAL): PENETRATION / ASPIRATION SCALE (DIANE): 1 = does not enter airway 2 = enters airway/above vocal folds/ejected 3 = enters airway/above vocal folds/not ejected 4 = enters airway/contacts vocal folds/ejected 5 = enters airway/contacts vocal folds/not ejected 6 = enters airway/below vocal folds/ejected 7 = enters airway/below vocal folds/not ejected despite effort 8 = enters airway/below vocal folds/no effort VIDEOFLOROSCOPIC SCALE SCORE (DIANE): Grade I = aspiration of material that has penetrated into the laryngeal vestibule, intact cough reflex Grade II = aspiration < 10 % of the bolus, intact cough reflex Grade III = aspiration of < 10 % of the bolus, reduced cough reflex or aspiration of > 10 % of the bolus, intact cough reflex Grade IV = aspiration of > 10 % of the bolus, reduced cough reflex - Penetration-Aspiration Scale Score Thin Liquid via teaspoon Result: 2= enter airway/above vocal folds/ejected Thin Liquid via teaspoon Trial 2 Result: 1= does not enter airway Thin Liquid via small single sip from cup Result: 2= enter airway/above vocal folds/ejected Thin Liquid via sequential sips from cup Result: 3= enters airways/above vocal folds/not ejected [place] Thick Liquid via small single sip from cup Result: 1= does not enter airway Honey Thick Liquid via small single sip from cup Result: 1= does not enter airway Pudding via teaspoon with esophageal screen Result: 1= does not enter airway Thin Liquid via single sip from straw Result: 1= does not enter airway 1/2 Cookie Result: 1= does not enter airway Thin Liquid via sequential sips from straw Result: 3= enters airways/above vocal folds/not ejected - Oral Phase Labial Seal: No Labial Escape Tongue Control During Bolus Hold: Posterior escape of less than half of bolus Bolus Preparation/Mastication: Disorganized chewing/mashing with solid pieces of bolus unchewed Bolus Transport/Lingual Motion: Brisk tongue motion Oral Residue: Majority of bolus remaining - piecemeal deglutition with HTL - Pharyngeal Phase Initiation of Pharyngeal Swallow: Bolus head in valleculae Soft Palate Elevation: No bolus between soft palate and pharyngeal wall Laryngeal Elevation: Partial superior movement thyroid cart/partial apprx aryt- epig petiole Anterior Hyoid Excursion: Partial anterior movement Epiglottic Movement: Partial inversion - inconsistent epiglottic inversion Laryngeal Vestibule Closure at Height of Swallow: Incomplete; narrow column of air/contrast in laryngeal vestibule Pharyngeal Stripping Wave: Present - diminished Pharyngoesophageal Segment Opening: Parital distension and partial duration; parital obstruction of flow Tongue Base Retraction: Wide column of contrast between tongue base & post. phar yngeal wall Pharyngeal Residue: Collection of residue within or on pharyngeal structures - Esophageal Phase Esophageal Clearance: Esophageal retention w/ retrograde flow below pharyngoesophageal seg. - Treatment Strategies Effects of treatment strategies attemped:: Double swallow = somewhat effective. Liquid wash = somewhat effective. - Diagnosis/Impression Diagnosis: Mild-mod oropharyngeal dysphagia (R13.12), Esophageal dysphagia (R13.14) Impression: The oral phase is primarily marked by... -Prolonged, disorganized mastication abilities with small pieces of the regular- textured cookie bolus appearing un-chewed. -Piecemeal deglutition of thickened liquids and cookie trial, which the patient mostly cleared with use of multiple swallows. The pharyngeal phase is primarily marked by... -Mildly decreased laryngeal elevation and anterior hyoid excursion with resulting decreased airway closure during the swallow, UES opening/duration, and inconsistent epiglottic inversion. -Moderately decreased tongue base retraction with resulting moderate pharyngeal residues in the vallecula after the swallow. Decreased pharyngeal contraction and UES opening/duration also contributed to mild-moderate pharyngeal residue. Decreasing bolus size, multiple swallows, and liquid wash were somewhat effective in decreasing pharyngeal residue. -Laryngeal penetration of 1 sip of thin liquid via tsp and 1 sip by cup, which did fully eject from the larynx during the swallow. Laryngeal penetration of sequential sips of thin liquid via cup and straw, which did not fully eject from the larynx during the swallow. He is at increased risk for post prandial aspiration with contrast remaining in the laryngeal vestibule. No aspiration observed during the study. The esophageal phase is primarily marked by... -Esophageal retention of pudding throughout mid and lower esophagus with retrograde flow remaining below UES. He did have trace esophageal retention of various contrasts in the upper esophagus and UES. Liquid wash was minimally effective in improving esophageal clearance of pudding. The patient is at risk for reflux aspiration. He would benefit from GI consult. SEE esophageal screen of pudding below. - Recommendations Diet: Thin Liquids - Easy to Chew textures (IDDSI Level 7) Compensatory Strategies: Small Bites - thoroughly chew, Small Sips, Slow Rate - Sips one at a time, Multiple Swallows - At least 2-3 swallows per each bite/sip, Alternate bites/solids and sips/liquids, Sitting upright, Remain sitting upright for 30 minutes after PO intake Supervision: 1:1 Close Supervision - Consider decreased supervision recommendations if good adherence to use of strategies Recommend Repeat Modified Barium Swallow: TBD Need for Skilled Speech Therapy Services: Yes Comment: Will recommend the patient for dysphagia therapy to address deficits in oropharyngeal swallow function. Will recommend the patient for oropharyngeal strengthening to improve tongue base retraction, laryngeal elevation, hyoid excursion, pharyngeal contraction, and duration of UES opening (Ciara, CTAR, Maria De Jesus, effortful swallow, effortful breath hold and swallow). The patient would benefit from thorough education regarding diet recommendations and recommended compensatory strategies. Recommended Referrals: GI Consult Education Completed: 1. Described result of evaluation., 2. Pt understands evaluation & agrees with goals and treatment plan., 7. Pt requires further education on strategies & risks. - Status Active ST Patient: Active - Contact Information [facility] Speech Therapy:: Ifrah Quinonez M.A. [facility]-[employer] Speech-Language Pathologist [facility] [address] [place] [address] [email or web address] [phone] 11/24/21 13:24
[2021-11-24] MEDS: Furosemide 20 MG/2 ML VIAL IV ×2 (14:36→20:55)
--- NOTE | 2021-11-24 18:14 | PCM.PN.INT ---
Assessment & Plan Assessment/Plan (1) Acute respiratory failure with hypoxemia: PLAN: Likely related to aspiration pneumonia which may have occurred as much as 2 weeks ago. Improved. -Agree with antibiotics for community-acquired pneumonia for an 8-day course -Speech evaluation and modified barium swallowing study -Periodically reinforced the instructions from today's speech evaluation session (2) Pleural disease: PLAN: This patient's pleural disease has progressed since [address] scan. Pleural thickening is more masslike at the right posterior lung base, and the patient's severe weight loss and failure to thrive, weakness, this may represent a new primary malignancy. -Discussed with Dr. Nova today. Since the patient is improving clinically from his pneumonia, follow-up of his pleural thickening will be deferred to outpatient status with his oncologist, who was planning a PET scan soon. (3) Immunosuppressed status: PLAN: His weight loss and anorexia contribute, deferring to primary team and dietary (4) History of coronary artery stent placement: PLAN: Stable (5) Chronic anticoagulation: PLAN: Management per hospitalist group. (6) History of lymphoma: PLAN: Will defer to oncology as outpatient, including further work-up and management of the slowly enlarging posterior pleural-based right lower lobe mass, which may be inflammatory from recurrent aspiration. (7) Longstanding persistent atrial fibrillation: PLAN: Per primary care and cardiology (8) Aspiration pneumonia due to regurgitated food: PLAN: As above (9) Scalp mass: PLAN: Management per oncology (10) SONYA on CPAP: PLAN: - Continue with current recommendations per my note yesterday. PLAN: Plan Pulmonary will sign off for now, after discussion with hospitalist. Thank you for consulting pulmonary on this pleasant patient[place] [address]. Subjective Subjective Patient feels better today, O2 saturation is improved, he is able to walk to the bathroom with less shortness of breath. He completed his speech and swallowing evaluation and is aware of the written speech and swallowing instructions that are hung on the wall. He was able to repeat most of them to me today. Denies any fevers chills or sweats, has no cough. His wheezing has diminished and he is not aware of chest congestion today. He is apparently recovering from his aspiration pneumonia. Objective Data Objective Data Vital Signs: Vital Signs Temp Pulse Resp BP Pulse Ox O2 Del Method O2 Flow Rate 36.7 C 75 20 H 134/75 H 91 Room Air 2 11/24/21 14:41 11/24/21 14:41 11/24/21 14:41 11/24/21 14:41 11/24/21 14:41 11/24/21 14:41 11/24/21 05:18 Oxygen Flow Rate (L/min) 2 Oxygen Delivery Method Room Air Weight: 72 kg Body Mass Index (BMI) 22.1 Intake & Output: Intake and Output for Last 24 Hours 11/22/21 11/23/21 11/24/21 23:59 23:59 23:59 Intake Total 850 / 850 1592 / 1592 1186 / 1186 Output Total 3 / 3 Balance 850 / 850 1592 / 1592 1183 / 1183 Medical Nutrition Assessment Dietitian: Malnutrition Criteria Met Start: 11/23/21 10:39 Freq: Status: Active Protocol: Document 11/23/21 10:39 RMA (Rec: 11/23/21 10:39 RMA [id number]) Nutrition Malnutrition Evidence of Malnutrition Exists Yes Malnutrition (severe): Chronic Evidenced By Suboptimal Energy Intake ( Severe),Weight Loss (Severe) Clinical Problem Chronic Disease or Condition Related Malnutrition 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 Will add ensure plus high protein shake with ice cream at lunch and dinner. Will add ensure pudding w/ breakfast for tolerance. Adjust ONS as needed to prevent further wt loss and optimize oral intake at meals. Lab / Micro Data Result Diagrams: 11/24/21 05:45 11/24/21 05:45 Labs: Laboratory Results - last 24 hr 11/24/21 05:45: WBC 12.6 H, RBC 4.63, Hgb 13.4, Hct 41.4, MCV 89.4, MCH 28.9, MCHC 32.4, RDW Std Deviation 49.4 H, RDW Coeff of Sofy 15.1 H, Plt Count 216, MPV 10.8, Immature Gran % (Auto) 0.700, Neut % (Auto) 86.6 H, Lymph % (Auto) 3.3 L, [place] % (Auto) 7.2, Eos % (Auto) 1.8, Baso % (Auto) 0.4, Absolute Neuts (auto) 10.9 H, Absolute Lymphs (auto) 0.41 L, Nucleated RBC % 0, Differential Comment SCANNED 11/24/21 05:45: Sodium 137, Potassium 2.9 L, Chloride 96 L, Carbon Dioxide 33.0 H, Anion Gap 8, BUN 12, Creatinine 0.66 L, Estim Creat Clear Calc 54.00, Est GFR (MDRD) Af Amer 147, Est GFR (MDRD) Non-Af 121, BUN/Creatinine Ratio 18.2, Glucose 107 H, Calcium 8.6 Micro: Microbiology 11/22/21 14:38 Mucosa - Nasopharyngeal Respiratory Panel (PCR) - Final 11/22/21 10:35 Nasal Secretion SARS-CoV-2 Antigen (Rapid) - Final Radiography Diagnostic Testing: Radiology Impression Echocardiogram 11/23/21 13:16 Interpretation Summary Normal LV size. Mild to moderate segmental systolic dysfunction (see wall motion). The estimated ejection fraction is 50 %. The left atrium is severely enlarged. Pulmonary artery systolic pressure is 38 mmHg. Moderate (2+) eccentric mitral valve insufficiency. Compared to previous study, the left ventricular systolic function is the same.. Ordering Physician: Antonette Lozada Referring Physician: Justin Leavitt M.D. Performed By: Carlita Barfield RCS Rhythm Strip Rhythm Strip: A-fib Rate: 73 Ectopy: None Physical Exam Narrative Unchanged from yesterday, except that his lungs are clear on exam except for a few crackles and diminished breath sounds at the lateral right lung base. He is speaking complete sentences more easily. Cough was absent during today's exam. He sat up easily in bed, and with more energy for today's exam.
[2021-11-24] MEDS: Atorvastatin Calcium 80 MG Tablet PO (20:58)
[2021-11-25] VITALS (8 sets, daily range): BP systolic 116–131; BP diastolic 64–89; PULSE 68–80; RESP 19–20; TEMP 36.4–37; O2SAT 0–98
[2021-11-25] MEDS: 0.9% Saline Lock 10 ML Syringe IV (00:58)
[2021-11-25] MEDS: Furosemide 20 MG/2 ML VIAL IV ×2 (05:10→14:12)
[2021-11-25] MEDS: Metoprolol(XL)Succ 25 MG Tablet 12.5 MG PO (08:23)
[2021-11-25] MEDS: Ensure Plus High Protein 120 ML LIQUID PO ×2 (08:23→11:42)
[2021-11-25] MEDS: Potassium Chloride Oral Tablet 20 MEQ PO ×2 (08:24→16:21)
[2021-11-25] MEDS: APIXABAN 2.5 MG TABLET PO (08:24)
[2021-11-25] MEDS: Sertraline 100 MG Tablet PO (08:24)
[2021-11-25] MEDS: Aspirin E.C. 81 MG Tablet PO (08:24)
--- NOTE | 2021-11-25 11:38 | CASEMGMT ---
Addendum entered by Adriana Escoto 11/25/21 12:03: Referral sent to [employer] for oxygen via [facility]. Email to liaison as well for notification. Addendum entered by Adriana Escoto 11/25/21 11:57: Pt questions if he should take albuterol at home. Updated hospitalist of question. Addendum entered by Adriana Escoto 11/25/21 11:46: TC to [employer], spoke with Hakeem appt set up for 11/29/2021 at 2pm. Pt aware and appt on dc plan. Original Note: WANG STEWART in to pt room, pt is aware he will need home oxygen. Provided pt with a local in network list of DME companies, pt chose [employer]. Pt aware to call [employer] once home for concentrator to be delivered. Pt states he has a pox at home. [facility]se referral for ST as well. Pt would like to complete this at [facility] and is agreeable to WANG STEWART setting up appt. Pt denies further homegoing needs.
--- NOTE | 2021-11-25 15:14 | DCINST_ITS ---
Discharge Instructions Diet Discharge Diet: No restrictions Activity Discharge Activity: Return to Normal Activity Weight Bearing Status: Full weight bearing Follow Up Care Test Results: Test results from this visit will be discussed in further detail at your follow- up appointment, if applicable. Discharge Plan Admission Admit Date/Time: 11/22/21 14:59 Primary Reason for Your Visit: hypoxia, pneumonia Attending Provider: Edin Mancuso Primary Care Provider: Justin Leavitt Consulting Providers: Emil Celeste ; Gage Cadet ; Justice Castro ; Finesse Parson ; Jeremie Mckeon ; Penny Youngblood OPERATIONS MANAGER ASSISTANT Instructions Additional Instructions / Restrictions: follow up with speech therapy as out patient Use oxygen at 2 liters per min when active and when sleeping You may use your aerosol machine as before, follow up with your pulmonary physician Discharge Orders/Prescriptions Prescriptions: New furosemide 40 mg tablet 80 mg PO BID Qty: 120 0RF amoxicillin-pot clavulanate 500-125 mg tablet 1 tab PO Q8H Qty: 22 0RF Rx Instructions: start with evening meal on 11/25/21-take all doses with food potassium chloride 10 mEq tablet extended release 20 meq PO BID Qty: 120 0RF Continued sertraline 100 mg tablet 100 mg PO DAILY metoprolol succinate 25 mg tablet extended release 24 hr 12.5 mg PO DAILY diclofenac sodium 1 % gel 2 g TOPICAL ONCE Rx Instructions: apply to single elbow, wrist or hand; for hand includes palm/fingers/back of hand atorvastatin 80 mg tablet 80 mg PO QHS Qty: 90 3RF Hold Instructions: elevated LFT's ondansetron HCl 4 mg tablet 4 mg PO Q6H PRN (Reason: Nausea) albuterol sulfate 90 mcg/actuation HFA aerosol inhaler 2 puff inhalation Q6H PRN (Reason: SOB) aspirin 81 mg tablet,delayed release (DR/EC) See Rx Instructions .ROUTE .COMPLEX Rx Instructions: TAKE 1 TABLET EVERY DAY Eliquis 2.5 mg tablet 2.5 mg PO BID potassium chloride 20 mEq tablet extended release 20 meq PO DAILY Discontinued furosemide 40 mg tablet See Rx Instructions .ROUTE .COMPLEX Rx Instructions: TAKE 2 TABLETS (80MG) IN THE MORNING AND TAKE 1 TABLET (40MG) IN THE EVENING FOR WATER PILL Referrals / Follow Up: Justin Leavitt MD [Primary Care Provider] - Within 2 Weeks Disposition Disposition (needs filled in before D/C Order can be placed): Home, Self Care
--- NOTE | 2021-11-25 15:29 | PCM.DC.SUM ---
Providers Date of Admission: 11/22/21 Date of Discharge: 11/25/21 Primary Care Physician: Dr. Justin Leavitt MD Consultations 11/23/21 10:42 Consult: Bead Forming Machine Operator / Pulmonary Medicine Routine Consulting Provider: Pulmonary Medicine claire DinhCriselda Reason for Consult: Recurrent hypoxia with cough- requesting pulm EMERGENT Consult: No MD Notified: Yes Date Notified: 11/23/21 Time Notified: 10:42 Method of Notification: Verbal Method of Consult:: In-Person 11/23/21 11:13 Consult: Bead Forming Machine Operator / Pulmonary Medicine Routine Consulting Provider: Pulmonary Medicine claire Heuvelton Reason for Consult: hypoxia EMERGENT Consult: Yes MD Notified: Yes Date Notified: 11/23/21 Time Notified: 11:18 Method of Notification: Verbal Method of Consult:: In-Person Comments:: + covid Reason For Visit: DEBILITY, HYPOXIA Diagnosis Discharge Diagnosis (1) Acute respiratory failure with hypoxemia: Status: Acute Code(s): J96.01 - Acute respiratory failure with hypoxia (2) Pleural disease: Status: Acute Code(s): J94.9 - Pleural condition, unspecified (3) Immunosuppressed status: Status: Chronic Code(s): D89.9 - Disorder involving the immune mechanism, unspecified (4) History of coronary artery stent placement: Status: Resolved Code(s): Z95.5 - Presence of coronary angioplasty implant and graft (5) Chronic anticoagulation: Status: Acute Code(s): 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) use of anticoagulants (6) History of lymphoma: Status: Acute Code(s): Z85.79 - Personal history of other malignant neoplasms of lymphoid, hematopoietic and related tissues (7) Longstanding persistent atrial fibrillation: Status: Chronic Code(s): I48.11 - Longstanding persistent atrial fibrillation (8) Aspiration pneumonia due to regurgitated food: Status: Acute Code(s): J69.0 - Pneumonitis due to inhalation of food and vomit (9) Scalp mass: Status: Acute Code(s): R22.0 - Localized swelling, mass and lump, head (10) SONYA on CPAP: Status: Acute Code(s): G47.33 - Obstructive sleep apnea (adult) (pediatric); Z99.89 - Dependence on other enabling machines and devices Plan 1. Hypoxia-etiology unclear, probably due to aspiration pneumonia and overlying diastolic congestive heart failure 2. Oropharyngeal dysphagia #3 chronic severe protein and caloric malnutrition #4 moderate mitral regurg #5 suspected acute diastolic congestive heart failure #6 ischemic cardiomyopathy #7 hypokalemia #8 chronic atrial fibrillation #9 atherosclerotic heart disease #10 mild pulmonary hypertension Medications at Discharge Home Medications sertraline 100 mg tablet 100 mg PO DAILY depression 04/26/17 metoprolol succinate 25 mg tablet,extended release 24 hr 12.5 mg PO DAILY bp 10/15/19 ondansetron HCl 4 mg tablet 4 mg PO Q6H PRN Nausea 12/04/19 atorvastatin 80 mg tablet 80 mg PO QHS cholesterol #90 tabs 04/20/20 diclofenac sodium 1 % topical gel 2 g topical ONCE pain 04/20/20 albuterol sulfate 90 mcg/actuation aerosol inhaler 2 puff inhalation Q6H PRN SOB 06/28/21 apixaban 2.5 mg tablet (Eliquis) 2.5 mg PO BID blood thinner 11/22/21 aspirin 81 mg tablet,delayed release See Rx Instructions .Route .COMPLEX heart health 11/22/21 potassium chloride 20 mEq tablet,extended release 20 meq PO DAILY supplement 11/22/21 amoxicillin 500 mg-potassium clavulanate 125 mg tablet 1 tab PO Q8H #22 tabs 11/25/21 furosemide 40 mg tablet 80 mg PO BID #120 tabs 11/25/21 potassium chloride 10 mEq tablet,extended release 20 meq PO BID #120 tabs 11/25/21 Hospital Course Operations None Procedures 2-D Echocardiogram Summary of Care Provided Minutes Spent on Discharge: 32 Hospital Course: This 86-year-old white male was seen in the emergency room at [facility] with complaints of overall weakness and shortness of breath. Work-up in the emergency room included a chest x-ray which showed chronic changes and pleural effusion, potassium was low at 2.9, and patient received replacement potassium in the emergency room. Patient was admitted to [place] [address], he was seen by PT and OT, the exact etiology of the patient's hypoxia was not clear at the time of admission, he was seen in consultation by pulmonary medicine who felt that the patient may have had recent aspiration pneumonia due to his complaints of chronic dysphagia. Patient was also treated for possible congestive heart failure, echocardiogram showed an intermediate ejection fraction, patient was treated with IV Lasix and IV antibiotics. Patient's labs were monitored, he was seen in consultation by speech therapy who felt that the patient was appropriate for a thin liquid diet with mechanical soft food. On 11/25/2021, patient was seen and examined: On examination he appeared cachectic and frail. Vital signs as documented. Skin warm and dry and without overt rashes. Neck without JVD, neck was supple, trachea midline, thyroid was normal. Lungs clear bilaterally, normal air movement was noted. Heart exam notable for irregular rhythm, normal sounds and absence of murmurs, rubs or gallops. Abdomen unremarkable and without evidence of organomegaly, masses, or abdominal aortic enlargement. Bowel sounds are present, abdomen is not distended. Extremities nonedematous, no cyanosis was noted, no clubbing was noted. Neuro: Cranial nerves II through XII are grossly intact, no focal motor deficits were noted, sensation to light touch and pinprick intact, motor exam 5/5 throughout. Psych: Patient is alert and oriented x3, he does not appear anxious or depressed, he does not appear agitated. On 11/25/2021, patient was seen and examined and felt to be stable for discharge home, patient required 2 L of oxygen via nasal cannula continuous at the time of discharge and this was set up for the patient. 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 Will add ensure plus high protein shake with ice cream at lunch and dinner. Will add ensure pudding w/ breakfast for tolerance. Adjust ONS as needed to prevent further wt loss and optimize oral intake at meals. Weight / BMI Weight Weight: 72 kg Body Mass Index (BMI) 22.1 ABG / Lab / Microbiology Data Result Diagrams: 11/24/21 05:45 11/25/21 15:25 Microbiology: Microbiology 11/22/21 14:38 Mucosa - Nasopharyngeal Respiratory Panel (PCR) - Final 11/22/21 10:35 Nasal Secretion SARS-CoV-2 Antigen (Rapid) - Final D/C Instructions Discharge Diet: No restrictions Weight Bearing Status: Full weight bearing Meaningful Use Info Meaningful Use Diagnoses (Choose all that apply): CHF CHF JAMI/ARB ordered at discharge?: No Reason JAMI/ARB not ordered?: Not indicated Documented LVEF (%): 50 Discharge Plan Admission Admit Date/Time: 11/22/21 14:59 Primary Reason for Your Visit: hypoxia, pneumonia Attending Provider: Edin Mancuso Primary Care Provider: Justin Leavitt Consulting Providers: Emil Celeste ; Gage Cadet ; Justice Castro ; Finesse Parson ; Jeremie Mckeon ; Penny Youngblood MAJOR GIFTS OFFICER Instructions Additional Instructions / Restrictions: follow up with speech therapy as out patient Use oxygen at 2 liters per min when active and when sleeping You may use your aerosol machine as before, follow up with your pulmonary physician Discharge Orders/Prescriptions Prescriptions: New furosemide 40 mg tablet 80 mg PO BID Qty: 120 0RF amoxicillin-pot clavulanate 500-125 mg tablet 1 tab PO Q8H Qty: 22 0RF Rx Instructions: start with evening meal on 11/25/21-take all doses with food potassium chloride 10 mEq tablet extended release 20 meq PO BID Qty: 120 0RF Continued sertraline 100 mg tablet 100 mg PO DAILY metoprolol succinate 25 mg tablet extended release 24 hr 12.5 mg PO DAILY diclofenac sodium 1 % gel 2 g TOPICAL ONCE Rx Instructions: apply to single elbow, wrist or hand; for hand includes palm/fingers/back of hand atorvastatin 80 mg tablet 80 mg PO QHS Qty: 90 3RF Hold Instructions: elevated LFT's ondansetron HCl 4 mg tablet 4 mg PO Q6H PRN (Reason: Nausea) albuterol sulfate 90 mcg/actuation HFA aerosol inhaler 2 puff inhalation Q6H PRN (Reason: SOB) aspirin 81 mg tablet,delayed release (DR/EC) See Rx Instructions .ROUTE .COMPLEX Rx Instructions: TAKE 1 TABLET EVERY DAY Eliquis 2.5 mg tablet 2.5 mg PO BID potassium chloride 20 mEq tablet extended release 20 meq PO DAILY Discontinued furosemide 40 mg tablet See Rx Instructions .ROUTE .COMPLEX Rx Instructions: TAKE 2 TABLETS (80MG) IN THE MORNING AND TAKE 1 TABLET (40MG) IN THE EVENING FOR WATER PILL Referrals / Follow Up: Justin Leavitt MD [Primary Care Provider] - Within 2 Weeks Disposition Disposition (needs filled in before D/C Order can be placed): Home, Self Care Charges/Coding Visit Charges Inpatient E&M: 95592 Disch Hosp
[2021-11-25 15:59] LABS: Anion Gap 6 (5-15); BUN 19 mg/dL (7-18); BUN/Creat Ratio 27.2 RATIO (10-20); Calcium,Total 8.8 mg/dL (8.5-10.1); Chloride 97 mmol/L (98-107); EST Glomerular Filtration Rate 114 mL/min (>60); Est Glom Filt Rate - Afr Amer 138 mL/min (>60); Glucose 117 mg/dL (74-106); Potassium 3.3 mmol/L (3.5-5.1); Sodium Level 137 mmol/L (136-145)
--- NOTE | 2021-11-25 18:33 | PCM.PN.HOSP ---
Subjective Subjective The date of this progress note is 11/24/2021: Patient was seen and examined today, I talked with his son today who was in the room. Patient underwent a swallowing evaluation today which showed oropharyngeal dysphagia, it was recommended that he have clear liquids and easy to chew foods. Patient is alternately been on room air and 2 L today. Objective Data Objective Data Vital Signs: Vital Signs Temp Pulse Resp BP Pulse Ox O2 Del Method O2 Flow Rate 97.6 F L 68 20 H 131/78 H 94 Room Air 0 11/25/21 15:48 11/25/21 15:48 11/25/21 15:48 11/25/21 15:48 11/25/21 15:48 11/25/21 15:48 11/25/21 11:05 Oxygen Flow Rate (L/min) [ 4 AMBULATING with Oxygen #3] Oxygen Flow Rate (L/min) [ 3 AMBULATING with Oxygen #2] Oxygen Flow Rate (L/min) [ 2 AMBULATING with Oxygen #1] Oxygen Flow Rate (L/min) [ 85 AMBULATING on Room Air] Oxygen Flow Rate (L/min) [At 0 REST on Room Air] Oxygen Flow Rate (L/min) 2 Oxygen Delivery Method Room Air Weight: 72 kg Body Mass Index (BMI) 22.1 Intake & Output: Intake and Output for Last 24 Hours 11/23/21 11/24/21 11/25/21 23:59 23:59 23:59 Intake Total 1592 / 1592 1498 / 1498 716 / 716 Output Total 3 / 3 Balance 1592 / 1592 1495 / 1495 716 / 716 Lab / Micro Data Result Diagrams: 11/24/21 05:45 11/25/21 15:25 Labs: Laboratory Results - last 24 hr 11/25/21 15:25: Sodium 137, Potassium 3.3 L, Chloride 97 L, Carbon Dioxide 34.0 H, Anion Gap 6, BUN 19 H, Creatinine 0.70, Estim Creat Clear Calc 54.00, Est GFR (MDRD) Af Amer 138, Est GFR (MDRD) Non-Af 114, BUN/Creatinine Ratio 27.2 H, Glucose 117 H, Calcium 8.8 Micro: Microbiology 11/22/21 14:38 Mucosa - Nasopharyngeal Respiratory Panel (PCR) - Final 11/22/21 10:35 Nasal Secretion SARS-CoV-2 Antigen (Rapid) - Final Rhythm Strip Rhythm Strip: A-fib Rate: 73 Ectopy: None Physical Exam Narrative On examination he appeared in good health and spirits. Vital signs as documented. Skin warm and dry and without overt rashes. Neck without JVD, neck was supple, trachea midline, thyroid was normal. Lungs clear bilaterally, normal air movement was noted. Heart exam notable for irregular rhythm, there is a 3/6 systolic murmur noted at the left sternal border and apex, no rubs or gallops were noted. Abdomen unremarkable and without evidence of organomegaly, masses, or abdominal aortic enlargement.? Bowel sounds are present, abdomen is not distended.? Extremities nonedematous, no cyanosis was noted, no clubbing was noted.? Neuro: Cranial nerves II through XII are grossly intact, no focal motor deficits were noted, sensation to light touch and pinprick intact, motor exam 5/5 throughout.? Psych: Patient is alert and oriented x3, he does not appear anxious or depressed, he does not appear agitated. Assessment & Plan Assessment/Plan (1) Acute respiratory failure with hypoxemia: PLAN: Plan #1 hypoxia-etiology unclear at this time, pulmonary medicine is seeing the patient, it is felt that the patient probably has aspiration pneumonia and overlying diastolic congestive heart failure #2 bilateral pulmonary infiltrates-possibly secondary to aspiration pneumonia and acute diastolic congestive heart failure #3 chronic atrial fibrillation-patient is on rate limiting medications and anticoagulation #4 Moderate mitral regurg-patient will have an echocardiogram performed, he is on IV Lasix at this time #5 elevated beta natruretic peptide indicative of congestive heart failure (diastolic)-patient is currently on IV Lasix, echocardiogram showed an EF of 50% #6 ischemic cardiomyopathy-patient will remain on his present medications #7 chronic severe protein and caloric malnutrition related to inadequate oral intake, altered GI function, and increased energy expenditure as evidenced by approximately 12% weight loss x1 year, 6% weight loss over the past 1 to 2 months, and approximately 3% weight loss in the past 1 to 2 weeks.? Need for mechanically altered food due to esophageal outpouches, diet was liberalized to regular/no added salt and adjust food consistency to easy to chew/thin liquids.? Ensure Plus high-protein shake with ice cream and lunch and dinner was added, Ensure pudding with breakfast was added.? Nutritional services will follow patient Charges/Coding Visit Charges Inpatient E&M: 49844 Subs Hosp L2
== END 2021-11-25 16:45 | disposition home or self-care (01) | DRG 177 ==
LOC: ED 14:46 → MS3 15:14
PROVIDERS: Nurse Practitioner Family; Emergency Provider Emergency Medicine; PCP Internal Medicine; Visit Provider Internal Medicine
DX: J69.0 Pneumonitis due to inhalation of food and vomit (principal); J96.21 Acute and chronic respiratory failure with hypoxia; E43 Unspecified severe protein-calorie malnutrition; I50.31 Acute diastolic (congestive) heart failure; D84.9 Immunodeficiency, unspecified; I48.11 Longstanding persistent atrial fibrillation; I27.21 Secondary pulmonary arterial hypertension; I11.0 Hypertensive heart disease with heart failure; I95.9 Hypotension, unspecified; G56.01 Carpal tunnel syndrome, right upper limb; G47.33 Obstructive sleep apnea (adult) (pediatric); I25.10 Atherosclerotic heart disease of native coronary artery without angina pectoris; I25.5 Ischemic cardiomyopathy; I34.1 Nonrheumatic mitral (valve) prolapse; I25.2 Old myocardial infarction; E87.6 Hypokalemia; K22.5 Diverticulum of esophagus, acquired; Z79.01 Long term (current) use of anticoagulants; R13.12 Dysphagia, oropharyngeal phase; R62.7 Adult failure to thrive; C44.329 Squamous cell carcinoma of skin of other parts of face; Z86.010 Personal history of colon polyps; Z79.82 Long term (current) use of aspirin; Z79.899 Other long term (current) drug therapy; Z95.1 Presence of aortocoronary bypass graft; Z87.891 Personal history of nicotine dependence; T50.2X5A Adverse effect of carbonic-anhydrase inhibitors, benzothiadiazides and other diuretics, initial encounter; Z68.22 Body mass index [BMI] 22.0-22.9, adult; Z23 Encounter for immunization
CPT/HCPCS: 36415; 71045; 71275; 74230; 80048; 83735; 83880; 85025; 87633; 87635; 87811; 92526; 92610; 92611; 93005; 93306; 97161; 97166; 97802; 99285; G0008; J7040; Q9957; Q9967; 90686; A4216; J0295; J1940; U0003; U0005

== ENCOUNTER 2021-11-29 13:55 | Outpatient (RCR) | payer MEDICARE, OTHER, SELFPAY ==
--- NOTE | 2021-11-29 15:13 | ST ---
[facility] Speech Pathology [address] [place] [address] Modified Barium Swallow Study MR#: [id number] Acct: [id number] Name: ZAINAB CARRILLO Rep #: [id number] : 1935 86 From: Ifrah Quinonez M.A., [facility]-COMPRESSOR STATION ENGINEER Consider 4-5 smaller meals daily, discontinue meal if increased s/s of aspiration Modified Barium Swallow - Patient Information Study Date: 11/24/21 Study Time: 12:30 Direct Billable Minutes: 90 Total Minutes procedure & reportin Diagnosis: Aspiration PNA due to regurgitated food (J69.0) Referring Physician: Edin Mancuso Reason for Referral: Objectively assess swallow function, risk for aspiration, and determine recommendations for least restrictive diet textures and compensatory strategies to improve safety of swallow. Medical History: Zainab Carrillo is an 86-year-old male with PMH including HTN, immunosuppressed status, A fib, lymphoma, old [place] (SEE full PMH in H&P) who presented to [facility] ED 11/22/2021 with progressive weakness over the past few weeks. He has also been short of breath with exertion. Patient's recently contracted COVID-19 and the patient has checked himself at home and has been repeatedly negative and the patient had a rapid test here that was also negative. In ED, pt was hypoxic down to 85% with ambulation. Chest X-ray revealed patchy bibasilar infiltrates worse on the right lung base with blunting of the right costophrenic angle. Patient states that he has lost around 8 to 9 pounds over the past week as he is not eating much. Per hospitalist's progress note, the patient has a dysphagia with Zenker's diverticulum. Pt has previous MBSS and dysphagia treatment ~2-3 year ago with [facility]. He was referred for ST consult during this hospitalization due to concern for swallowing difficulty. Following BSE, the patient was recommended to continue Easy to Chew textures / Thin liquids with aspiration and reflux precautions. Mid Level Provider recommended MBSS to further assess aspiration risk due to aspiration PNA. Current Diet Ordered: Easy to Chew textures / Thin liquids Dentition: WNL Mental Status: WNL Respiratory Status: Oxygenating on Room Air - Penetration-Aspiration Scale Penetration-Aspiration Scale: OBJECTIVE ASSESSMENT OF SWALLOW FUNCTION (QUANTITATIVE ? PER TRIAL): PENETRATION / ASPIRATION SCALE (DIANE): 1 = does not enter airway 2 = enters airway/above vocal folds/ejected 3 = enters airway/above vocal folds/not ejected 4 = enters airway/contacts vocal folds/ejected 5 = enters airway/contacts vocal folds/not ejected 6 = enters airway/below vocal folds/ejected 7 = enters airway/below vocal folds/not ejected despite effort 8 = enters airway/below vocal folds/no effort VIDEOFLOROSCOPIC SCALE SCORE (DIANE): Grade I = aspiration of material that has penetrated into the laryngeal vestibule, intact cough reflex Grade II = aspiration < 10 % of the bolus, intact cough reflex Grade III = aspiration of < 10 % of the bolus, reduced cough reflex or aspiration of > 10 % of the bolus, intact cough reflex Grade IV = aspiration of > 10 % of the bolus, reduced cough reflex - Penetration-Aspiration Scale Score Thin Liquid via teaspoon Result: 2= enter airway/above vocal folds/ejected Thin Liquid via teaspoon Trial 2 Result: 1= does not enter airway Thin Liquid via small single sip from cup Result: 2= enter airway/above vocal folds/ejected Thin Liquid via sequential sips from cup Result: 3= enters airways/above vocal folds/not ejected [place] Thick Liquid via small single sip from cup Result: 1= does not enter airway Honey Thick Liquid via small single sip from cup Result: 1= does not enter airway Pudding via teaspoon with esophageal screen Result: 1= does not enter airway Thin Liquid via single sip from straw Result: 1= does not enter airway 1/2 Cookie Result: 1= does not enter airway Thin Liquid via sequential sips from straw Result: 3= enters airways/above vocal folds/not ejected Oral Phase Labial Seal: No Labial Escape Tongue Control During Bolus Hold: Posterior escape of less than half of bolus Bolus Preparation/Mastication: Disorganized chewing/mashing with solid pieces of bolus unchewed Bolus Transport/Lingual Motion: Brisk tongue motion Oral Residue: Majority of bolus remaining - piecemeal deglutition with HTL - Pharyngeal Phase Initiation of Pharyngeal Swallow: Bolus head in valleculae Soft Palate Elevation: No bolus between soft palate and pharyngeal wall Laryngeal Elevation: Partial superior movement thyroid cart/partial apprx aryt-epig petiole Anterior Hyoid Excursion: Partial anterior movement Epiglottic Movement: Partial inversion - inconsistent epiglottic inversion Laryngeal Vestibule Closure at Height of Swallow: Incomplete; narrow column of air/contrast in laryngeal vestibule Pharyngeal Stripping Wave: Present - diminished Pharyngoesophageal Segment Opening: Parital distension and partial duration; parital obstruction of flow Tongue Base Retraction: Wide column of contrast between tongue base & post. pharyngeal wall Pharyngeal Residue: Collection of residue within or on pharyngeal structures - Esophageal Phase Esophageal Clearance: Esophageal retention w/ retrograde flow below pharyngoesophageal seg. - Treatment Strategies Effects of treatment strategies attemped:: Double swallow = somewhat effective. Liquid wash = somewhat effective. - Diagnosis/Impression Diagnosis: Mild-mod oropharyngeal dysphagia (R13.12), Esophageal dysphagia (R13.14) Impression: The oral phase is primarily marked by... -Prolonged, disorganized mastication abilities with small pieces of the regular-textured cookie bolus appearing un-chewed. -Piecemeal deglutition of thickened liquids and cookie trial, which the patient mostly cleared with use of multiple swallows. The pharyngeal phase is primarily marked by... -Mildly decreased laryngeal elevation and anterior hyoid excursion with resulting decreased airway closure during the swallow, UES opening/duration, and inconsistent epiglottic inversion. -Moderately decreased tongue base retraction with resulting moderate pharyngeal residues in the vallecula after the swallow. Decreased pharyngeal contraction and UES opening/duration also contributed to mild-moderate pharyngeal residue. Decreasing bolus size, multiple swallows, and liquid wash were somewhat effective in decreasing pharyngeal residue. -Laryngeal penetration of 1 sip of thin liquid via tsp and 1 sip by cup, which did fully eject from the larynx during the swallow. Laryngeal penetration of sequential sips of thin liquid via cup and straw, which did not fully eject from the larynx during the swallow. He is at increased risk for post prandial aspiration with contrast remaining in the laryngeal vestibule. No aspiration observed during the study. The esophageal phase is primarily marked by... -Esophageal retention of pudding throughout mid and lower esophagus with retrograde flow remaining below UES. He did have trace esophageal retention of various contrasts in the upper esophagus and UES. Liquid wash was minimally effective in improving esophageal clearance of pudding. The patient is at risk for reflux aspiration. He would benefit from GI consult. Recommendations Diet: Thin Liquids - Easy to Chew textures (IDDSI Level 7) Compensatory Strategies: Small Bites - thoroughly chew, Small Sips, Slow Rate - Sips one at a time, Multiple Swallows - At least 2-3 swallows per each bite/sip, Alternate bites/solids and sips/ liquids, Sitting upright, Remain sitting upright for 30 minutes after PO intake Supervision: 1:1 Close Supervision - Consider decreased supervision recommendations if good adherence to use of strategies Recommend Repeat Modified Barium Swallow: TBD Need for Skilled Speech Therapy Services: Yes Comment: Will recommend the patient for dysphagia therapy to address deficits in oropharyngeal swallow function. Will recommend the patient for oropharyngeal strengthening to improve tongue base retraction, laryngeal elevation, hyoid excursion, pharyngeal contraction, and duration of UES opening (Ciara, CTAR, Maria De Jesus, effortful swallow, effortful breath hold and swallow). The patient would benefit from thorough education regarding diet recommendations and recommended compensatory strategies. Recommended Referrals: GI Consult Education Completed: 1. Described result of evaluation., 2. Pt understands evaluation & agrees with goals and treatment plan., 7. Pt requires further education on strategies & risks. - Status Active ST Patient: Active - Contact Information [facility] Speech Therapy:: Ifrah Quinonez M.A. [facility]-COM[employer] STATION ENGINEER Speech-Language Pathologist [facility] [address] [place] [address] [email or web address] [phone] 11/24/21 13:24 11/24/21 1408 Date/Time Ifrah Quinonez M.A., [facility]-COM[employer] STATION ENGINEER
--- NOTE | 2021-11-29 15:22 | HP.SP.EVAL ---
History - History Date of Eval: 11/29/21 Medical Diagnosis (from RX): Dysphagia Date of Onset of Diagnosis: 11/24/21 Previous speech therapy: Yes Results: 4 day hospital stay with MBS completed. Other Relevant Medical History/Diagnoses/Surgery: Alcohol use. Atherosclerosis of coronary artery of hopi heart without angina pectoris. Atrial flutter. Carpal tunnel syndrome of right wrist. Change in bowel habit. Colon polyps. Diverticulosis. Essential (primary) hypertension. History of colonic polyps. Hyperlipidemia. Immunosuppressed status. Ischemic cardiomyopathy. Longstanding persistent atrial fibrillation. Lymphoma. Non-rheumatic mitral regurgitation. Nonrheumatic mitral (valve) prolapse. Nonsustained supraventricular tachycardia (08/2019). Obstructive sleep apnea. 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 Paroxysmal atrial fibrillation. Rectal bleeding. Secondary pulmonary arterial hypertension. Squamous carcinoma Medications related to this diagnosis: sertraline 100 mg tablet 100 mg PO DAILY depression 04/26/17 [History Last Taken 11/22/21]. metoprolol succinate 25 mg tablet,extended release 24 hr 12.5 mg PO DAILY bp 10/15/19 [History Last Taken 11/22/21]. ondansetron HCl 4 mg tablet 4 mg PO Q6H PRN Nausea 12/04/19 [History Last Taken Unknown]. atorvastatin 80 mg tablet 80 mg PO QHS cholesterol #90 tabs 04/20/20 [Rx Last Taken 11/22/21]. diclofenac sodium 1 % topical gel 2 g topical ONCE pain 04/20/20 [History Last Taken 11/21/21]. albuterol sulfate 90 mcg/actuation aerosol inhaler 2 puff inhalation Q6H PRN SOB 06/28/21 [History Last Taken 2 Weeks Ago ~11/08/21]. apixaban 2.5 mg tablet (Eliquis) 2.5 mg PO BID blood thinner 11/22/21 [History Last Taken 11/22/21]. aspirin 81 mg tablet,delayed release See Rx Instructions .Route .COMPLEX heart health 11/22/21 [History Last Taken 11/22/21]. furosemide 40 mg tablet See Rx Instructions .Route .COMPLEX water pill 11/22/21 [History Last Taken 11/22/21]. potassium chloride 20 mEq tablet,extended release 20 meq PO DAILY supplement 11/22/21 [History Last Taken 3 Days Ago ~11/19/21] Smoking Status: Former smoker Hx Smoking: No - quit yrs ago Hx Smoking Cessation Date: 02/27/00 Hx Tobacco Use: No Hx Smoking Exposure: No - Pain Is pain an issue with your current prescribed condition?: No Patient Allergies - Allergies Allergies ramipril Allergy (Intermediate, Verified 11/22/21 09:38) cough Subjective Dysphagia - Symptoms Reported Symptoms/Problems with: Weight Loss, Hx of Aspiration, Hx of Pneumonia - Current Diet Solids Other: Easy to chew IDDSI level 7 - Current Diet Liquids Current Liquids: Thin Child[place] free water Protocol: No Objective Dysphagia - Swallowing Impairment Contributing Factors to Swallowing Impairment: Reduced Oral Strength/Coordination/Sensation, Reduced Laryngeal Excursion - Impact Impact on Safety & Functioning: Risk for Aspiration, Risk for Inadequate Nutrition/Hydration - Recommendations Modified Barium Swallow/Cookie Swallow Recommended: Yes Swallowing Treatment: Yes - Diet Texture Recommendations Solids: Easy to Chew (Level 7) Liquids: Thin (Level 0) - Safety Saftey Precautions/Swallowing Recommendations (Check all that Apply): 1 to 1 Close Supervision, Upright Position at Least 30 Minutes After Meals, Small Sips & Bites when Eating, Multiple Swallows, Alternate Liquids & Solids - Results Swallowing Within Normal Limits: No Swallowing Diagnosis: Oropharyngeal Phase Dysphagia (R13.12) Severity: Moderate Modified Barium Results Hx MBS Results (from prior exam): 11/29/21 15:13 Speech Therapy by Hakeem Garces [facility] Speech Pathology [address] [place] [address] Modified Barium Swallow Study MR#: [id number] Acct: [id number] Name: ZAINAB CARRILLO Rep #: [id number] : 1935 86 From: Ifrah Quinonez M.A., [facility]-POACHER WRINGER OPERATOR Consider 4-5 smaller meals daily, discontinue meal if increased s/s of aspiration Modified Barium Swallow - Patient Information Study Date: 11/24/21 Study Time: 12:30 Direct Billable Minutes: 90 Total Minutes procedure & reportin Diagnosis: Aspiration PNA due to regurgitated food (J69.0) Referring Physician: Edin Mancuso Reason for Referral: Objectively assess swallow function, risk for aspiration, and determine recommendations for least restrictive diet textures and compensatory strategies to improve safety of swallow. Medical History: Zainab Carrillo is an 86-year-old male with PMH including HTN, immunosuppressed status, A fib, lymphoma, old [place] (SEE full PMH in H&P) who presented to [facility] ED 11/22/2021 with progressive weakness over the past few weeks. He has also been short of breath with exertion. Patient's recently contracted COVID-19 and the patient has checked himself at home and has been repeatedly negative and the patient had a rapid test here that was also negative. In ED, pt was hypoxic down to 85% with ambulation. Chest X-ray revealed patchy bibasilar infiltrates worse on the right lung base with blunting of the right costophrenic angle. Patient states that he has lost around 8 to 9 pounds over the past week as he is not eating much. Per hospitalist's progress note, the patient has a dysphagia with Zenker's diverticulum. Pt has previous MBSS and dysphagia treatment ~2-3 year ago with [facility]. He was referred for ST consult during this hospitalization due to concern for swallowing difficulty. Following BSE, the patient was recommended to continue Easy to Chew textures / Thin liquids with aspiration and reflux precautions. Civil Engineering Professor recommended MBSS to further assess aspiration risk due to aspiration PNA. Current Diet Ordered: Easy to Chew textures / Thin liquids Dentition: WNL Mental Status: WNL Respiratory Status: Oxygenating on Room Air - Penetration-Aspiration Scale Penetration-Aspiration Scale: OBJECTIVE ASSESSMENT OF SWALLOW FUNCTION (QUANTITATIVE ? PER TRIAL): PENETRATION / ASPIRATION SCALE (DIANE): 1 = does not enter airway 2 = enters airway/above vocal folds/ejected 3 = enters airway/above vocal folds/not ejected 4 = enters airway/contacts vocal folds/ejected 5 = enters airway/contacts vocal folds/not ejected 6 = enters airway/below vocal folds/ejected 7 = enters airway/below vocal folds/not ejected despite effort 8 = enters airway/below vocal folds/no effort VIDEOFLOROSCOPIC SCALE SCORE (DIANE): Grade I = aspiration of material that has penetrated into the laryngeal vestibule, intact cough reflex Grade II = aspiration < 10 % of the bolus, intact cough reflex Grade III = aspiration of < 10 % of the bolus, reduced cough reflex or aspiration of > 10 % of the bolus, intact cough reflex Grade IV = aspiration of > 10 % of the bolus, reduced cough reflex - Penetration-Aspiration Scale Score Thin Liquid via teaspoon Result: 2= enter airway/above vocal folds/ejected Thin Liquid via teaspoon Trial 2 Result: 1= does not enter airway Thin Liquid via small single sip from cup Result: 2= enter airway/above vocal folds/ejected Thin Liquid via sequential sips from cup Result: 3= enters airways/above vocal folds/not ejected [place] Thick Liquid via small single sip from cup Result: 1= does not enter airway Honey Thick Liquid via small single sip from cup Result: 1= does not enter airway Pudding via teaspoon with esophageal screen Result: 1= does not enter airway Thin Liquid via single sip from straw Result: 1= does not enter airway 1/2 Cookie Result: 1= does not enter airway Thin Liquid via sequential sips from straw Result: 3= enters airways/above vocal folds/not ejected Oral Phase Labial Seal: No Labial Escape Tongue Control During Bolus Hold: Posterior escape of less than half of bolus Bolus Preparation/Mastication: Disorganized chewing/mashing with solid pieces of bolus unchewed Bolus Transport/Lingual Motion: Brisk tongue motion Oral Residue: Majority of bolus remaining - piecemeal deglutition with HTL - Pharyngeal Phase Initiation of Pharyngeal Swallow: Bolus head in valleculae Soft Palate Elevation: No bolus between soft palate and pharyngeal wall Laryngeal Elevation: Partial superior movement thyroid cart/partial apprx aryt-epig petiole Anterior Hyoid Excursion: Partial anterior movement Epiglottic Movement: Partial inversion - inconsistent epiglottic inversion Laryngeal Vestibule Closure at Height of Swallow: Incomplete; narrow column of air/contrast in laryngeal vestibule Pharyngeal Stripping Wave: Present - diminished Pharyngoesophageal Segment Opening: Parital distension and partial duration; parital obstruction of flow Tongue Base Retraction: Wide column of contrast between tongue base & post. pharyngeal wall Pharyngeal Residue: Collection of residue within or on pharyngeal structures - Esophageal Phase Esophageal Clearance: Esophageal retention w/ retrograde flow below pharyngoesophageal seg. - Treatment Strategies Effects of treatment strategies attemped:: Double swallow = somewhat effective. Liquid wash = somewhat effective. - Diagnosis/Impression Diagnosis: Mild-mod oropharyngeal dysphagia (R13.12), Esophageal dysphagia (R13.14) Impression: The oral phase is primarily marked by... -Prolonged, disorganized mastication abilities with small pieces of the regular-textured cookie bolus appearing un-chewed. -Piecemeal deglutition of thickened liquids and cookie trial, which the patient mostly cleared with use of multiple swallows. The pharyngeal phase is primarily marked by... -Mildly decreased laryngeal elevation and anterior hyoid excursion with resulting decreased airway closure during the swallow, UES opening/duration, and inconsistent epiglottic inversion. -Moderately decreased tongue base retraction with resulting moderate pharyngeal residues in the vallecula after the swallow. Decreased pharyngeal contraction and UES opening/duration also contributed to mild-moderate pharyngeal residue. Decreasing bolus size, multiple swallows, and liquid wash were somewhat effective in decreasing pharyngeal residue. -Laryngeal penetration of 1 sip of thin liquid via tsp and 1 sip by cup, which did fully eject from the larynx during the swallow. Laryngeal penetration of sequential sips of thin liquid via cup and straw, which did not fully eject from the larynx during the swallow. He is at increased risk for post prandial aspiration with contrast remaining in the laryngeal vestibule. No aspiration observed during the study. The esophageal phase is primarily marked by... -Esophageal retention of pudding throughout mid and lower esophagus with retrograde flow remaining below UES. He did have trace esophageal retention of various contrasts in the upper esophagus and UES. Liquid wash was minimally effective in improving esophageal clearance of pudding. The patient is at risk for reflux aspiration. He would benefit from GI consult. Recommendations Diet: Thin Liquids - Easy to Chew textures (IDDSI Level 7) Compensatory Strategies: Small Bites - thoroughly chew, Small Sips, Slow Rate - Sips one at a time, Multiple Swallows - At least 2-3 swallows per each bite/sip, Alternate bites/solids and sips/ liquids, Sitting upright, Remain sitting upright for 30 minutes after PO intake Supervision: 1:1 Close Supervision - Consider decreased supervision recommendations if good adherence to use of strategies Recommend Repeat Modified Barium Swallow: TBD Need for Skilled Speech Therapy Services: Yes Comment: Will recommend the patient for dysphagia therapy to address deficits in oropharyngeal swallow function. Will recommend the patient for oropharyngeal strengthening to improve tongue base retraction, laryngeal elevation, hyoid excursion, pharyngeal contraction, and duration of UES opening (Ciara, CTAR, Maria De Jesus, effortful swallow, effortful breath hold and swallow). The patient would benefit from thorough education regarding diet recommendations and recommended compensatory strategies. Recommended Referrals: GI Consult Education Completed: 1. Described result of evaluation., 2. Pt understands evaluation & agrees with goals and treatment plan., 7. Pt requires further education on strategies & risks. - Status Active ST Patient: Active - Contact Information [facility] Speech Therapy:: Ifrah Quinonez M.A. CCC-POACHER WRINGER OPERATOR Speech-Language Pathologist [place] [address] [place] [address] [email or web address] [phone] 11/24/21 13:24 11/24/21 1408 Date/Time Ifrah Quinonez M.A., CCC-POACHER WRINGER OPERATOR Initialized on 11/29/21 15:13 - END OF NOTE Swallowing Performance Scale - Swallowing Performance Scale Swallowing Performance Scale Result: 4 Mild to Moderate Plan - Plan Plan: Patient and are in agreement with GI consult and Manager Club consult. Patient was already provided with swallowing exercises. Therapy is recommended for 1-2 sessions for education and determination if patient is able to complete exercises independently. - Recommendations MBS: Yes Treatment Warranted: Yes Treatment Warranted: Dysphagia - Progress Prognosis: Good - Frequency Frequency: 1x/Week Additional (Frequency): 2 weeks then consider repeat MBS in 6-8 weeks. Duration: 2 Weeks Visits in this POC: 2 - Goals that are Established Determination:: Goals will be added/modified as deemed necessary and appropriate. Therapy will be discontinued when results of re-evaluation indicate therapy is no longer needed or lack of progress has been documented. - Goal #1-5 Goal #1: The Patient will demonstrate and utilize recommended compensatory swallowing techniques to facilitate improved airway protection and decreased risk for aspiration during PO intake, across 3 out of 3 sessions. Goal #2: The Patient will demonstrate and utilize recommended velopharyngeal and oropharyngeal strengthening exercises to facilitate improved velopharyngeal and oropharyngeal strength and coordination with minimal cueing and prompting provide by the clinician, across 3 to 3 sessions. Education - Patient has Indicated that the Following Identified Educational Needs: None The Patient has indicated that they have no educational or learning abilities that may effect their care.: Yes - Patient Instruction Patient Education: Diagnosis, Treatment Plan, Diet Level Person Taught: Patient, Family Teaching Method: Discussion Response to teaching: Verbalize understanding, Has Prior Knowledge
--- NOTE | 2022-01-24 10:55 | HP.SP.DC ---
ST Discharge Summary - Discharged: Discharge: Jose Amador is discharged from [facility] speech therapy as of January 24, 2022. His evaluation was on 11/29/21 and he cancelled one session on 12/06/21 with no further visits scheduled by the patient. Please see initial evaluation for last known abilities. Thank you for allowing me to participate in the care of this patient.
== END 2021-11-29 19:00 | disposition home or self-care (01) ==
LOC: SP 13:55
PROVIDERS: PCP Internal Medicine; Referring Provider Internal Medicine; Visit Provider Internal Medicine
DX: R13.12 Dysphagia, oropharyngeal phase (principal)
CPT/HCPCS: 92610

== ENCOUNTER → 2021-12-05 | Outpatient (CLI) | payer MEDICARE, OTHER, SELFPAY ==
[2021-12-05 11:20] LABS: ALB/GLOB Ratio 0.8 RATIO (0.9-2.4); AST(SGOT) 55 U/L (15-37); Alanine Aminotransfer ALT/SGPT 63 U/L (16-61); Alkaline Phosphatase 106 U/L (45-117); Anion Gap 7 (5-15); BUN 23 mg/dL (7-18); Calcium,Total 9.8 mg/dL (8.5-10.1); Chloride 99 mmol/L (98-107); Creatinine, Serum 0.77 mg/dL (0.70-1.30); EST Glomerular Filtration Rate 102 mL/min (>60); Est Glom Filt Rate - Afr Amer 124 mL/min (>60); Globulin 3.6 g/dL (2.2-4.2); Glucose 119 mg/dL (74-106); Potassium 4.2 mmol/L (3.5-5.1); Protein, Total 6.6 g/dL (6.4-8.2); Sodium Level 139 mmol/L (136-145)
== END | disposition home or self-care (01) ==
PROVIDERS: PCP Internal Medicine; Referring Provider Nurse Practitioner Family; Visit Provider Nurse Practitioner Family
DX: I25.10 Atherosclerotic heart disease of native coronary artery without angina pectoris (principal); I50.30 Unspecified diastolic (congestive) heart failure; I11.0 Hypertensive heart disease with heart failure; Z95.5 Presence of coronary angioplasty implant and graft; Z95.1 Presence of aortocoronary bypass graft
CPT/HCPCS: 36415; 80053

== ENCOUNTER 2021-12-18 22:09 | Emergency (ER) | payer MEDICARE, OTHER, SELFPAY ==
[2021-12-18 22:11] VITALS: BP 117/74; PULSE 82; RESP 19; TEMP 36.7; O2SAT 98; BMI 21.6
[2021-12-18 22:13] VITALS: BP 117/74; PULSE 82; RESP 19; TEMP 36.7; O2SAT 98
[2021-12-18 22:18] VITALS: O2SAT 93
--- NOTE | 2021-12-18 22:53 | ED.VIS.DYS ---
HPI History of Present Illness Chief Complaint: Shortness of Breath Narrative Narrative: Patient presents with lots of coughing with mucus production tonight, he was not able to cough, making him very dyspneic, he had emesis, but he states he coughed up a bunch of sputum and now he is breathing fine. At home when he was having difficulty his pulse ox was 86% on room air. Now he is 93-98% on room air. He had pneumonia about a month ago and was admitted to the hospital. He was sent home on prn oxygen at that time. He was recovering, and he developed COVID, started having those symptoms about 10 days ago, and it was improving, but in the last couple days he has been coughing more and bringing up more and more mucus with the most today. It is thick. His appetite is poor. His fluid intake is poor. He denies any fevers or chills or chest pain. 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 He has had weight loss because of his poor oral intake. He also has a history of esophageal issues that cause vomiting and aspiration, he had aspiration pneumonia presumably a month ago. He is on Eliquis. He no longer is on any antibiotics. Since he was discharged from the hospital a month ago, he has had dyspnea with exertion which is not necessarily worse today except for when he could not stop coughing. [facility] Medical History Alcohol use Atherosclerosis of coronary artery of [place] heart without angina pectoris Atrial flutter Carpal tunnel syndrome of right wrist Change in bowel habit Colon polyps Diverticulosis Esophageal diverticulum Essential (primary) hypertension History of colonic polyps History of lymphoma Hyperlipidemia Immunosuppressed status Ischemic cardiomyopathy Longstanding persistent atrial fibrillation Lymphoma Non-rheumatic mitral regurgitation Nonrheumatic mitral (valve) prolapse Nonsustained supraventricular tachycardia (08/2019) Obstructive sleep apnea 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) Paroxysmal atrial fibrillation Rectal bleeding Secondary pulmonary arterial hypertension Squamous carcinoma Home Medications sertraline 100 mg tablet 100 mg PO DAILY depression 04/26/17 [History Last Taken 11/22/21] metoprolol succinate 25 mg tablet,extended release 24 hr 12.5 mg PO DAILY bp 10/15/19 [History Last Taken 11/22/21] ondansetron HCl 4 mg tablet 4 mg PO Q6H PRN Nausea 12/04/19 [History Last Taken Unknown] diclofenac sodium 1 % topical gel 2 g topical ONCE pain 04/20/20 [History Last Taken 11/21/21] albuterol sulfate 90 mcg/actuation aerosol inhaler 2 puff inhalation Q6H PRN SOB 06/28/21 [History Last Taken 2 Weeks Ago ~11/08/21] aspirin 81 mg tablet,delayed release See Rx Instructions .Route .COMPLEX heart health 11/22/21 [History Last Taken 11/22/21] amoxicillin 500 mg-potassium clavulanate 125 mg tablet 1 tab PO Q8H #22 tabs 11/25/21 [Rx Last Taken Unknown] furosemide 40 mg tablet 80 mg PO BID #120 tabs 11/25/21 [Rx Last Taken Unknown] potassium chloride 10 mEq tablet,extended release 20 meq PO BID #120 tabs 11/25/21 [Rx Last Taken Unknown] apixaban 2.5 mg tablet (Eliquis) 2.5 mg PO BID blood thinner #180 tabs 12/05/21 [Rx Last Taken Unknown] prednisone 10 mg tablets in a dose pack 10 mg PO PER PKG DIR 12/05/21 [History Last Taken Unknown] amoxicillin 875 mg-potassium clavulanate 125 mg tablet 875 mg PO Q12H #20 TABLETS 12/19/21 [Rx Last Taken Unknown] benzonatate 100 mg capsule 100 mg PO TID PRN PRN Cough #20 CAPSULES 12/19/21 [Rx Last Taken Unknown] Allergy/AdvReac Type Severity Reaction Status Date / Time ramipril Allergy Intermediate cough Verified 12/05/21 09:12 Family History Father , age 72 CVA (cerebral vascular accident) Mother , age 69 Diabetes CHF (congestive heart failure) Other Family history of CVA Surgical History H/O coronary artery bypass surgery (06/25/09) History of carpal tunnel release History of coronary artery stent placement (05/12/14) History of thoracic surgery Knee joint replacement status Social History Smoking Status: Former smoker alcohol intake: current alcohol intake frequency: a few times a week substance use type: does not use caffeine: Yes what type of physical activity do you participate in: none frequency: does not exercise ROS ROS ED Constitutional Constitutional ED: Reports weight loss; Denies chills or fever(s) Eyes Eyes: Denies change in vision or diplopia ENT ENT ED: Reports other Details: Thick oral mucus production ; Denies rhinorrhea or sore throat Cardiovascular Cardiovascular: Denies chest pain or palpitations Respiratory/Chest Respiratory/Chest: Reports as per HPI, cough, dyspnea, dyspnea on exertion and sputum Gastrointestinal Gastrointestinal: Denies abdominal pain, diarrhea, nausea or vomiting Genitourinary Genitourinary ED: Denies dysuria or hematuria Musculoskeletal Musculoskeletal: Denies back pain or neck pain Integumentary Denies abscess or rash Neurologic Neurologic: Denies headache(s), paresthesias or weakness Psychiatric Psychiatric: Denies anxiety or suicidal thoughts EXAM Physical Exam Const Vital Signs: 12/18/21 22:11 12/18/21 22:13 12/18/21 22:18 Temperature 98.1 F 98.1 F Temperature Source Temporal Temporal Pulse Rate 82 82 Respiratory Rate 19 H 19 H Respiratory Effort Short of Breath Respiratory Depth Shallow Blood Pressure 117/74 117/74 Blood Pressure Mean 88 88 Pulse Ox 98 98 Oxygen Delivery Method Room Air Room Air Room Air Positive well nourished and well developed General Appearance ED: well developed and NAD HEENT Reports moist mucous membranes normocephalic and atraumatic Eyes PERRL and EOMs intact bilaterally Neck full ROM and supple Resp normal respiratory effort Resp Narrative: Crackles right base Cardio regular rate, regular rhythm and no murmurs Rate: Negative for tachycardic GI non-tender and non-distended Auscultation: normoactive bowel sounds Palpation: soft Back/Spine no CVA tenderness General Back: other FROM Extremity normal to inspection General Extremety ED: Negative for edema, pulses abnormal or tenderness General Extremity: Negative for edema or pulses abnormal Neuro oriented x3, CN's II-XII intact bilaterally and no sensory deficits noted Sensorium / Orientation: awake and alert Motor Exam: strength 5/5 throughout Skin no rashes or lesions noted and no wounds MDM MDM MDM Narrative Medical decision making narrative: Chest x-ray 2 views of my interpretation does show infiltrates bilaterally, they are mild. Radiology states there decreased compared with prior and nothing new is present. However given the patient's clinical exam, and his symptoms I think it would be reasonable to cover him with antibiotics for possible aspiration pneumonia. He is oxygenating well on reevaluation, he has been coughing less, and he is comfortable going home. I will prescribe him Tessalon perles as well for the cough, I gave him fluids while he was here and advised to try to stay hydrated as that would keep the mucus thinner and make it easier to mobilize it. I think he was mucous plugging prior to arrival based on the history. Lab Data Attestation: I reviewed the patient's lab results. Labs: Laboratory Results - last 24 hr 12/18/21 12/18/21 23:04 23:04 WBC 9.5 RBC 4.05 L Hgb 11.6 L Hct 36.3 L MCV 89.6 MCH 28.6 MCHC 32.0 RDW Std Deviation 49.7 H RDW Coeff of Sofy 15.2 H Plt Count 196 MPV 10.0 Immature Gran % (Auto) 0.800 Neut % (Auto) 90.2 H Lymph % (Auto) 2.8 L [place] % (Auto) 4.8 Eos % (Auto) 1.2 Baso % (Auto) 0.2 Absolute Neuts (auto) 8.6 H Absolute Lymphs (auto) 0.27 L Nucleated RBC % 0 Differential Comment SCANNED Sodium 137 Potassium 3.6 Chloride 98 Carbon Dioxide 33.0 H Anion Gap 6 BUN 18 Creatinine 0.62 L Estim Creat Clear Calc 52.80 Est GFR (MDRD) Af Amer 157 Est GFR (MDRD) Non-Af 129 BUN/Creatinine Ratio 28.8 H Glucose 109 H Calcium 9.0 Radiography Diagnostic Testing: Clinical Impression(s) from Imaging Studies Chest X-Ray 12/18/21 23:21 IMPRESSION: Bilateral infiltrates decreased. No new infiltrates. Electronically Signed: Marlene Duran MD at 0:13 EDT , Discharge Plan Triage Chief Complaint: Shortness of Breath ED Provider: Jose Jcakson Dx/Rx/DC Orders Clinical Impression: Aspiration pneumonia, Mucus plugging of bronchi Instructions: ED Pneumonia (Adult) Prescriptions: New benzonatate [benzonatate] 100 mg capsule 100 mg PO TID PRN PRN (Reason: Cough) Qty: 20 0RF amoxicillin-pot clavulanate [amoxicillin-pot clavulanate] 875-125 mg tablet 875 mg PO Q12H Qty: 20 0RF No Action sertraline 100 mg tablet 100 mg PO DAILY metoprolol succinate 25 mg tablet extended release 24 hr 12.5 mg PO DAILY diclofenac sodium 1 % gel 2 g TOPICAL ONCE Rx Instructions: apply to single elbow, wrist or hand; for hand includes palm/fingers/back of hand ondansetron HCl 4 mg tablet 4 mg PO Q6H PRN (Reason: Nausea) albuterol sulfate 90 mcg/actuation HFA aerosol inhaler 2 puff inhalation Q6H PRN (Reason: SOB) prednisone 10 mg tablets,dose pack 10 mg PO PER PKG DIR Label Comments: taper pack aspirin 81 mg tablet,delayed release (DR/EC) See Rx Instructions .ROUTE .COMPLEX Rx Instructions: TAKE 1 TABLET EVERY DAY furosemide 40 mg tablet 80 mg PO BID Qty: 120 0RF amoxicillin-pot clavulanate 500-125 mg tablet 1 tab PO Q8H Qty: 22 0RF Rx Instructions: start with evening meal on 11/25/21-take all doses with food potassium chloride 10 mEq tablet extended release 20 meq PO BID Qty: 120 0RF Eliquis 2.5 mg tablet 2.5 mg PO BID Qty: 180 3RF Primary Care Provider: Justin Leavitt Referrals: Justin Leavitt MD [Primary Care Provider] - (This week, call for appointment) Activity Restrictions/Additional Instructions: Your x-ray showed improvement and no new pneumonias, but you had sounds of pneumonia in the right base on exam, and we are covering you with antibiotic for aspiration pneumonia. Your labs look good. Cough medicine is to be used as needed. Follow-up, if you have new or worsening problems welcome to return to the ER. Disposition Disposition: Home, Self Care
--- NOTE | 2021-12-18 23:21 | RAD_ITS ---
STUDY: X-RAY CHEST REASON FOR EXAM: Male, 86 years old. cough/sob TECHNIQUE: PA and lateral. COMPARISON: 11/22/2021. FINDINGS: LINES/DEVICES: Indwelling central venous catheter unchanged. LUNGS: Right perihilar and basilar infiltrate is decreased compared to prior. There is minimal residual infiltrate in the left lung base. No new consolidation. No pneumothorax. MEDIASTINUM: Unremarkable. CARDIAC SILHOUETTE: Not enlarged. Sternal wires. BONES AND SOFT TISSUES: No acute abnormalities. RAD/Chest PA and Lateral IMPRESSION: Bilateral infiltrates decreased. No new infiltrates. Electronically Signed: Marlene Duran MD at 0:13 EDT ,
[2021-12-18 23:23] LABS: Absolute Lymphocyte Count 0.27 X10^3/uL (0.83-4.51); Absolute Neutrophil Count 8.6 X10^3/uL (2.0-7.7); Basophil# 0.02 X10^3/uL; Basophil% 0.2 % (0-1); Eosinophil# 0.11 X10^3/uL; Eosinophils% 1.2 % (0-5); Hematocrit 36.3 % (40-54); Hemoglobin 11.6 g/dL (13.0-16.5); Lymphocyte # 0.27 X10^3/ul (0.83-4.51); Lymphocyte % 2.8 % (19-41); Mean Corpuscular Hgb 28.6 pg (27.0-32.0); Mean Corpuscular Volume 89.6 fL (80-94); Monocyte# 0.46 X10^3/uL; Monocyte% 4.8 % (0-10); NRBC Flagged by Analyzer 0 % (0-5); Neutrophil # 8.59 X10^3/uL (2.7-7.7); Neutrophil % 90.2 % (47-70); POSITIVE DIFFERENTIAL YES; Platelet Count 196 K/mm3 (150-450); RBC Distribution Width CV 15.2 % (11.6-14.6); RBC Distribution Width SD 49.7 fl (35.1-43.9); Red Blood Count 4.05 M/mm3 (4.6-6.2); White Blood Count 9.5 K/mm3 (4.4-11.0)
[2021-12-18 23:24] LABS: Differential Indicated SCAN CRITERIA MET
[2021-12-18 23:28] LABS: Anion Gap 6 (5-15); BUN 18 mg/dL (7-18); BUN/Creat Ratio 28.8 RATIO (10-20); Chloride 98 mmol/L (98-107); Creatinine, Serum 0.62 mg/dL (0.70-1.30); EST Glomerular Filtration Rate 129 mL/min (>60); Est Glom Filt Rate - Afr Amer 157 mL/min (>60); Glucose 109 mg/dL (74-106); Potassium 3.6 mmol/L (3.5-5.1); Sodium Level 137 mmol/L (136-145)
[2021-12-18] MEDS: 0.9% Normal Saline 1,000 ML 500 ML IV (23:38)
[2021-12-19 00:26] LABS: Differential Comment SCANNED
[2021-12-19] MEDS: Benzonatate 100 MG Capsule 200 MG PO (01:32)
[2021-12-19] MEDS: Amox/Clavulanate 875 MG Tablet PO (01:33)
[2021-12-19 01:34] VITALS: BP 128/68; PULSE 90; RESP 19; O2SAT 94
== END 2021-12-19 01:54 | disposition home or self-care (01) ==
PROVIDERS: Emergency Provider Emergency Medicine; PCP Internal Medicine; Visit Provider Emergency Medicine
DX: J69.0 Pneumonitis due to inhalation of food and vomit (principal); I48.11 Longstanding persistent atrial fibrillation; C44.329 Squamous cell carcinoma of skin of other parts of face; I10 Essential (primary) hypertension; I25.5 Ischemic cardiomyopathy; I25.10 Atherosclerotic heart disease of native coronary artery without angina pectoris; E78.5 Hyperlipidemia, unspecified; Z79.01 Long term (current) use of anticoagulants; Z79.82 Long term (current) use of aspirin; Z79.52 Long term (current) use of systemic steroids; Z79.899 Other long term (current) drug therapy; Z87.891 Personal history of nicotine dependence; Z95.1 Presence of aortocoronary bypass graft; Z95.5 Presence of coronary angioplasty implant and graft
CPT/HCPCS: 71046; 80048; 85025; 96360; 96361; 99285

== ENCOUNTER → 2021-12-27 | Outpatient (CLI) | payer MEDICARE, OTHER, SELFPAY ==
[2021-12-27 16:44] LABS: Anion Gap 7 (5-15); BUN 21 mg/dL (7-18); BUN/Creat Ratio 26.5 RATIO (10-20); Calcium,Total 9.2 mg/dL (8.5-10.1); Chloride 98 mmol/L (98-107); Creatinine, Serum 0.79 mg/dL (0.70-1.30); EST Glomerular Filtration Rate 98 mL/min (>60); Est Glom Filt Rate - Afr Amer 119 mL/min (>60); Glucose 158 mg/dL (74-106); Potassium 4.7 mmol/L (3.5-5.1); Sodium Level 138 mmol/L (136-145)
== END | disposition home or self-care (01) ==
LOC: LAB 15:39
PROVIDERS: PCP Internal Medicine; Visit Provider Nurse Practitioner Family
DX: I50.30 Unspecified diastolic (congestive) heart failure (principal); I48.20 Chronic atrial fibrillation, unspecified; E87.6 Hypokalemia
CPT/HCPCS: 36415; 80048

== ENCOUNTER → 2022-01-09 | Outpatient (CLI) | payer MEDICARE, OTHER, SELFPAY ==
--- NOTE | 2022-01-09 14:56 | VDLE_ITS ---
Reason For Study: EDEMA RIGHT LEFT GSV is normal. GSV is normal. CFV is compressible, spontaneous, phasic, CFV is compressible, spontaneous, phasic, competent and demonstrates normal competent, and demonstrates normal augmentation. augmentation. FV is compressible, spontaneous, phasic, FV is compressible, spontaneous, phasic, competent and demonstrates normal competent and demonstrates normal augmentation. augmentation. POP V is compressible, spontaneous, phasic, POP V is compressible, spontaneous, phasic, competent and demonstrates normal competent and demonstrates normal augmentation. augmentation. T/P Trunk is compressible. T/P Trunk is compressible. PTV is compressible. PTV is compressible. RT PerV is compressible. LT PerV is compressible. Procedure LT medial knee demonstrates a NON-vascular This is a venous duplex using B-mode, color structure measuring 3.42 x 2.02. flow and spectral Doppler. Exam performed in department. A preliminary report was called and/or faxed to Fabi Barker [employer] @ [phone] @ 3:20pm. VL/Venous Duplex US - Priyank Extrem Interpretation Summary Deep veins of the bilateral lower extremities are patent and compressible segme ntally. There is no evidence of bilateral lower extremity deep vein thrombosis. The bilateral great saphenous veins appear patent and compressible segmentally. Incidental finding, NON-vascular structure measuring 3.42 x 2.02 medial to left knee Ordering Physician: Fabi Barker Referring Physician: Justin Leavitt Performed By: Krystle Carrasquillo, OBINNA, RVT
== END | disposition home or self-care (01) ==
LOC: CVS 14:55
PROVIDERS: PCP Internal Medicine; Referring Provider Nurse Practitioner; Visit Provider Nurse Practitioner
DX: R60.0 Localized edema (principal)
CPT/HCPCS: 93970

== ENCOUNTER → 2022-02-07 | Outpatient (CLI) | payer MEDICARE, OTHER, SELFPAY ==
--- NOTE | 2022-02-07 10:30 | RAD_ITS ---
STUDY: X-RAY CHEST REASON FOR EXAM: Male, 86 years old. Shortness of breath, CHF, hx pleural effusions TECHNIQUE: PA and lateral views of the chest. COMPARISON: 12/18/2021 FINDINGS: Right internal jugular chest port which is unchanged. Status post median sternotomy. Poor inspiration with some bibasilar atelectasis. There is no demonstrated pleural abnormality. There is moderate cardiac enlargement. Normal mediastinum and guillermo. Normal visualized pulmonary arteries. Normal visualized aortic arch and descending thoracic aorta. Normal visualized thoracic spine. Normal visualized ribs, clavicles, and shoulders. There is no demonstrated abnormality of the visualized soft tissue structures of the upper abdomen. RAD/Chest PA and Lateral IMPRESSION: Poor inspiration with some bibasilar atelectasis. Electronically Signed: Angel Hansen MD at 10:10 [facility] ,
[2022-02-07 10:45] LABS: Hematocrit 35.9 % (40-54); Mean Corp Hgb Conc 30.6 g/dL (32-36); Mean Corpuscular Hgb 28.5 pg (27.0-32.0); Mean Platelet Vol. 9.6 fl (6.2-12.0); Platelet Count 202 K/mm3 (150-450); RBC Distribution Width CV 16.9 % (11.6-14.6); Red Blood Count 3.86 M/mm3 (4.6-6.2); White Blood Count 5.9 K/mm3 (4.4-11.0)
[2022-02-07 11:10] LABS: BNP,B-Type NATRIURETIC PEPTIDE 352.1 pg/mL (0-100)
[2022-02-07 11:38] LABS: Anion Gap 5 (5-15); BUN 16 mg/dL (7-18); BUN/Creat Ratio 21.3 RATIO (10-20); Calcium,Total 8.8 mg/dL (8.5-10.1); Chloride 104 mmol/L (98-107); Creatinine, Serum 0.75 mg/dL (0.70-1.30); EST Glomerular Filtration Rate 105 mL/min (>60); Est Glom Filt Rate - Afr Amer 127 mL/min (>60); Glucose 110 mg/dL (74-106); Sodium Level 141 mmol/L (136-145)
== END | disposition home or self-care (01) ==
LOC: LAB 10:20
PROVIDERS: PCP Internal Medicine; Referring Provider Physician Assistant Medical; Visit Provider Physician Assistant Medical
DX: I50.42 Chronic combined systolic (congestive) and diastolic (congestive) heart failure (principal); I48.11 Longstanding persistent atrial fibrillation; R60.0 Localized edema; R06.02 Shortness of breath; R18.8 Other ascites; J90 Pleural effusion, not elsewhere classified; J18.9 Pneumonia, unspecified organism; I34.0 Nonrheumatic mitral (valve) insufficiency; Z79.01 Long term (current) use of anticoagulants
CPT/HCPCS: 36415; 71046; 80048; 83880; 85027

== ENCOUNTER → 2022-03-01 | Outpatient (CLI) | payer MEDICARE, OTHER, SELFPAY ==
[2022-03-01 09:36] LABS: Hematocrit 38.1 % (40-54); Hemoglobin 11.7 g/dL (13.0-16.5); Mean Corp Hgb Conc 30.7 g/dL (32-36); Mean Corpuscular Hgb 27.7 pg (27.0-32.0); Mean Corpuscular Volume 90.1 fL (80-94); Mean Platelet Vol. 9.8 fl (6.2-12.0); Platelet Count 262 K/mm3 (150-450); RBC Distribution Width CV 15.4 % (11.6-14.6); RBC Distribution Width SD 50.9 fl (35.1-43.9); Red Blood Count 4.23 M/mm3 (4.6-6.2); White Blood Count 7.3 K/mm3 (4.4-11.0)
[2022-03-01 09:59] LABS: BNP,B-Type NATRIURETIC PEPTIDE 468.4 pg/mL (0-100)
[2022-03-01 10:01] LABS: Anion Gap 5 (5-15); BUN 15 mg/dL (7-18); BUN/Creat Ratio 24.5 RATIO (10-20); Calcium,Total 9.1 mg/dL (8.5-10.1); Chloride 98 mmol/L (98-107); Creatinine, Serum 0.61 mg/dL (0.70-1.30); EST Glomerular Filtration Rate 132 mL/min (>60); Est Glom Filt Rate - Afr Amer 160 mL/min (>60); Glucose 108 mg/dL (74-106); Potassium 3.5 mmol/L (3.5-5.1); Sodium Level 135 mmol/L (136-145)
== END | disposition home or self-care (01) ==
LOC: LAB 08:39
PROVIDERS: PCP Internal Medicine; Referring Provider Physician Assistant Medical; Visit Provider Physician Assistant Medical
DX: R60.0 Localized edema (principal); I50.42 Chronic combined systolic (congestive) and diastolic (congestive) heart failure
CPT/HCPCS: 36415; 80048; 83880; 85027

== ENCOUNTER → 2022-03-15 | Outpatient (CLI) | payer MEDICARE, OTHER, SELFPAY ==
[2022-03-15 16:27] LABS: Anion Gap 7 (5-15); BUN 24 mg/dL (7-18); BUN/Creat Ratio 28.8 RATIO (10-20); Calcium,Total 9.4 mg/dL (8.5-10.1); Chloride 97 mmol/L (98-107); Creatinine, Serum 0.83 mg/dL (0.70-1.30); EST Glomerular Filtration Rate 93 mL/min (>60); Est Glom Filt Rate - Afr Amer 112 mL/min (>60); Glucose 110 mg/dL (74-106); Potassium 4.4 mmol/L (3.5-5.1); Sodium Level 136 mmol/L (136-145)
== END | disposition home or self-care (01) ==
LOC: LAB 15:00
PROVIDERS: PCP Internal Medicine; Visit Provider Physician Assistant Medical
DX: R06.02 Shortness of breath (principal); I50.42 Chronic combined systolic (congestive) and diastolic (congestive) heart failure; I25.10 Atherosclerotic heart disease of native coronary artery without angina pectoris
CPT/HCPCS: 36415; 80048

== ENCOUNTER 2022-04-28 13:19 | Emergency (ER) | payer MEDICARE, OTHER, SELFPAY ==
[2022-04-28 13:21] VITALS: BP 137/81; PULSE 90; RESP 18; TEMP 35.6; O2SAT 91
--- NOTE | 2022-04-28 13:49 | CT_ITS ---
STUDY: CT CERVICAL SPINE WITHOUT CONTRAST REASON FOR EXAM: Male, 87 years old. Injury due to a fall. RADIATION DOSAGE (If Supplied By Facility): CTDIvol = ( 18.12 ) mGy, DLP = ( 441.99 ) mGycm TECHNIQUE: High resolution transaxial imaging was performed without contrast material. Sagittal and coronal images were reconstructed. Individualized dose optimization techniques were used for this CT. COMPARISON: None FINDINGS: Normal craniovertebral junction. There are degenerative changes of the anterior atlantoaxial articulation. Normal odontoid process. Normal cervical lordosis. Normal vertebral bodies and posterior osseous elements. C2-3: Mild degree of disc space narrowing. Facet joint osteoarthritis. Uncovertebral arthrosis. No significant stenosis is seen. C3-4: Mild degree of disc space narrowing. Uncovertebral arthrosis. Hypertrophy of the facet joints. No significant stenosis is seen. C4-5: Facet joint osteoarthritis and hypertrophy. Uncovertebral arthrosis. Bilateral neural foraminal stenosis worse on the right side. C5-6: Mild degree of disc space narrowing and disc degeneration. Facet joint osteoarthritis. Hypertrophy of the facet joints. Bilateral neural foraminal stenosis worse on the right side. C6-7: Moderate degree of disc space narrowing. Spondylosis. Facet joint osteoarthritis and hypertrophy. No significant stenosis is seen. C7-T1: Normal endplates. Normal disc height and morphology. Normal central canal and intervertebral neuroforamina. There is a marked degree of the gaseous distention of the esophagus down to the level of the sean. CT/Spine Cervical without Contras IMPRESSION: Multilevel degenerative changes, as described above. Electronically Signed: Dionisio Mason MD at 15:27 EST ,
--- NOTE | 2022-04-28 13:49 | CT_ITS ---
STUDY: CT BRAIN WITHOUT CONTRAST REASON FOR EXAM: Male, 87 years old. An injury due to a fall. RADIATION DOSAGE (If Supplied By Facility): CTDIvol = ( 47.06 ) mGy, DLP = ( 855.03 ) mGycm TECHNIQUE: Transaxial CT imaging of the brain was performed without administration of intravenous contrast material. Individualized dose optimization techniques were used for this CT. COMPARISON: No relevant priors. FINDINGS: Normal soft tissue structures. Normal calvarium. There is mild cerebral atrophy with widening of the extra-axial spaces and ventricular dilatation. There are areas of decreased attenuation within the white matter tracts of the supratentorial brain, consistent with microvascular disease changes. Normal basal ganglia and thalami. Normal brainstem. Normal cerebellum. There is no intracranial hemorrhage. There are no findings of an acute ischemic infarction. Atherosclerotic plaque formation of the vertebral arteries and cavernous portions of the internal carotid arteries bilaterally. Normal visualized paranasal sinuses. CT/Brain/Head without Contrast IMPRESSION: Chronic involutional changes of the brain. Electronically Signed: Dionisio Mason MD at 15:25 EST ,
[2022-04-28 14:24] VITALS: BMI 21.4
--- NOTE | 2022-04-28 14:35 | EX.ED.GENINJ ---
HPI <ISIDRO Keane - Last Filed: 04/28/22 18:29> History of Present Illness Chief Complaint: Head Injury Narrative Narrative: Presents today after mechanical fall that occurred earlier this afternoon. He states that he was moving recycling bins around in his driveway when he stepped in a shayna hole and fell over onto the wastebasket and hit his head on the ground. Patient states that he also landed on his knees bilaterally and hit his right shoulder in the process of all of this. He is complaining of pain to his knees bilaterally, right fingertips, and right shoulder. Patient is on Eliquis for A-fib. He denies loss of consciousness, neck pain, back pain, abdominal pain. PFS <ISIDRO Keane - Last Filed: 04/28/22 18:29> [facility] Medical History Alcohol use Atherosclerosis of coronary artery of [place] heart without angina pectoris Atrial flutter Bilateral pleural effusion (11/25/21) Carpal tunnel syndrome of right wrist Change in bowel habit Chronic anticoagulation Chronic combined systolic and diastolic CHF (congestive heart failure) Colon polyps COVID (11/2021) Diverticulosis Dysphagia Esophageal diverticulum Essential (primary) hypertension History of colonic polyps History of lymphoma Hyperlipidemia Hypokalemia Immunosuppressed status Ischemic cardiomyopathy Longstanding persistent atrial fibrillation Lymphoma Non-rheumatic mitral regurgitation Nonrheumatic mitral (valve) prolapse Nonsustained supraventricular tachycardia (08/2019) Obstructive sleep apnea 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) Paroxysmal atrial fibrillation Pleural disease Pneumonia (11/25/21) Rectal bleeding Secondary pulmonary arterial hypertension Squamous carcinoma Home Medications metoprolol succinate 25 mg tablet,extended release 24 hr 12.5 mg PO DAILY bp 10/15/19 [History Last Taken 11/22/21] albuterol sulfate 90 mcg/actuation aerosol inhaler 2 puff inhalation Q6H PRN SOB 06/28/21 [History Last Taken 2 Weeks Ago ~11/08/21] aspirin 81 mg tablet,delayed release See Rx Instructions .Route .COMPLEX heart health 11/22/21 [History Last Taken 11/22/21] spironolactone 25 mg tablet 25 mg PO DAILY #90 tabs 03/01/22 [Rx Last Taken Unknown] apixaban 2.5 mg tablet (Eliquis) 2.5 mg PO BID #60 tabs 04/11/22 [Rx Last Taken Unknown] albuterol sulfate 2.5 mg/3 mL (0.083 %) solution for nebulization 2.5 mg inhalation DAILY 04/25/22 [History Last Taken Unknown] budesonide 0.5 mg/2 mL suspension for nebulization (Pulmicort) 0.5 mg inhalation DAILY 04/25/22 [History Last Taken Unknown] cholecalciferol (vitamin D3) 25 mcg (1,000 unit) tablet 25 mcg PO DAILY 04/25/22 [History Last Taken Unknown] furosemide 40 mg tablet 40 mg PO .COMPLEX 04/25/22 [History Last Taken Unknown] mirtazapine 7.5 mg tablet 7.5 mg PO QHS 04/25/22 [History Last Taken Unknown] potassium chloride 10 mEq capsule,extended release 10 meq PO BID PATIENT CANNOT SWALLOW KCL PILLS 04/25/22 [History Last Taken Unknown] zinc 50 mg tablet 50 mg PO DAILY 04/25/22 [History Last Taken Unknown] Allergy/AdvReac Type Severity Reaction Status Date / Time ramipril Allergy Intermediate cough Verified 04/28/22 13:21 Family History Father , age 72 CVA (cerebral vascular accident) Mother , age 69 Diabetes CHF (congestive heart failure) Other Family history of CVA Surgical History H/O coronary artery bypass surgery (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/09) History of carpal tunnel release History of coronary artery stent placement (05/12/14) History of thoracic surgery Knee joint replacement status Social History Smoking Status: Former smoker how long ago did patient quit smokin years ago alcohol intake: current alcohol intake frequency: a few times a week substance use type: does not use caffeine: Yes what type of physical activity do you participate in: none frequency: does not exercise ROS <ISIDRO Keane - Last Filed: 04/28/22 18:29> ROS ED Constitutional Constitutional ED: Denies chills, fever(s) or sweats Eyes Eyes: Denies blurry vision or diplopia Cardiovascular Cardiovascular: Denies chest pain or palpitations Respiratory/Chest Respiratory/Chest: Denies cough, dyspnea, tachypnea or wheezing Gastrointestinal Gastrointestinal: Denies abdominal pain, nausea or vomiting Genitourinary Genitourinary ED: Denies dysuria, hematuria or urinary urgency Musculoskeletal Musculoskeletal: Reports arthralgias and myalgias; Denies back pain or neck pain Integumentary Reports Abrasions; Denies abscess or rash Neurologic Neurologic: Denies confusion, dizziness or paresthesias Psychiatric Psychiatric: Denies anxiety or depression Allergic/Immunologic Allergic/Immunologic ED: Denies lip swelling, mouth swelling or urticaria EXAM <ISIDRO Keane - Last Filed: 04/28/22 18:29> Physical Exam Const Vital Signs: 04/28/22 13:21 04/28/22 14:24 Temperature 96.1 F L Temperature Source Temporal Pulse Rate 90 Respiratory Rate 18 Respiratory Effort Normal Blood Pressure 137/81 H Blood Pressure Mean 99 Pulse Ox 91 Oxygen Delivery Method Room Air Positive well nourished, well developed and no apparent distress General Appearance ED: well developed HEENT Reports normocephalic and head/scalp atraumatic Mouth ED: Yes moist mucous membranes normal Eyes PERRL and EOMs intact bilaterally Neck full ROM and supple Chest Wall inspection of chest normal Resp normal respiratory effort and clear to auscultation bilaterally Cardio regular rate and regular rhythm GI soft to palpation, non-tender, non-distended and no masses Back/Spine normal ROM and normal to inspection Extremity normal to inspection and full ROM Neuro oriented x3, CN's II-XII intact bilaterally, moves all extremities, no focal motor deficits and no sensory deficits noted Sensorium / Orientation: awake and alert Psych mental status grossly normal and thought process normal Skin no rashes or lesions noted and no wounds <Dr. Emil Salgado, DO - Last Filed: 04/28/22 23:48> Physical Exam Const Vital Signs: 04/28/22 13:21 04/28/22 14:24 Temperature 96.1 F L Temperature Source Temporal Pulse Rate 90 Respiratory Rate 18 Respiratory Effort Normal Blood Pressure 137/81 H Blood Pressure Mean 99 Pulse Ox 91 Oxygen Delivery Method Room Air PROC <ISIDRO Keane - Last Filed: 04/28/22 18:29> Procedures Lacerations Laceration : Length: 3 cm Shape: Linear Prep: Chlorhexadine Laceration repair: Foreign material removed, Irrigated and Lidocaine Suture Information: Ethilon (5-0) Comment: 5 sutures were placed. [facility] <ISIDRO Keane - Last Filed: 04/28/22 18:29> [facility] Narrative Medical decision making narrative: Patient presenting today after stepping in a shayna hole and falling in his driveway earlier this afternoon. He is well-appearing and in no acute distress. Brain CT obtained to rule out intracranial hemorrhage these patient did hit his head and is on Eliquis, it shows no acute changes. cervical spine x-ray obtained to rule out fracture and shows no acute fracture. Patient was complaining of pain in his right shoulder, we obtained x-rays of this and it shows no acute fracture or dislocation. Patient was complaining of pain to his knees bilaterally that also show no fracture. Patient does have a 3 cm laceration above his left eyebrow that was cleaned and 5 sutures were placed in this area. Patient also had 2 other bleeding abrasions above his left eyebrow that were dermabonded. Patient had a bleeding abrasion to his right third and fourth fingers that were dermabonded. He also had a bleeding abrasion to his right knee that was Dermabond it. All of these areas were cleaned with chlorhexidine. Linear laceration above the left eyebrow was irrigated with saline and cleaned with chlorhexidine. Laceration was dressed with a bandage and bacitracin ointment. He has been given RICE instructions. He will be discharged home in stable condition and is comfortable with plan. He is to follow-up with his PCP in 3 to 5 days. Radiography Diagnostic Testing: Clinical Impression(s) from Imaging Studies Brain CT 04/28/22 13:49 IMPRESSION: Chronic involutional changes of the brain. Electronically Signed: Dionisio Mason MD at 15:25 EST , Cervical Spine CT 04/28/22 13:49 IMPRESSION: Multilevel degenerative changes, as described above. Electronically Signed: Dionisio Mason MD at 15:27 EST , Knee X-Ray 04/28/22 14:55 IMPRESSION: Degenerative arthrosis. Electronically Signed: Dionisio Mason MD at 15:18 EST , Knee X-Ray 04/28/22 14:55 IMPRESSION: Status post total knee replacement. No acute abnormality is seen. Electronically Signed: Dionisio Mason MD at 15:17 EST Reading Location ID and State: [address] [place] [address] , Service support , Shoulder X-Ray 04/28/22 14:55 IMPRESSION: No acute abnormality is seen. Electronically Signed: Dionisio Mason MD at 15:19 EST Reading Location ID and State: [address] [place] [address] , Service support , <Dr. Emil Salgado, DO - Last Filed: 04/28/22 23:48> MDM Radiography Diagnostic Testing: Clinical Impression(s) from Imaging Studies Brain CT 04/28/22 13:49 IMPRESSION: Chronic involutional changes of the brain. Electronically Signed: Dionisio Mason MD at 15:25 EST Reading Location ID and State: [address] [place] [address] , Service support , Cervical Spine CT 04/28/22 13:49 IMPRESSION: Multilevel degenerative changes, as described above. Electronically Signed: Dionisio Mason MD at 15:27 EST , Knee X-Ray 04/28/22 14:55 IMPRESSION: Degenerative arthrosis. Electronically Signed: Dionisio Mason MD at 15:18 EST , Knee X-Ray 04/28/22 14:55 IMPRESSION: Status post total knee replacement. No acute abnormality is seen. Electronically Signed: Dionisio Mason MD at 15:17 EST , Shoulder X-Ray 04/28/22 14:55 IMPRESSION: No acute abnormality is seen. Electronically Signed: Dionisio Mason MD at 15:19 EST , Treatment and Re-Evaluation Narrative: I have personally performed a face to face assessment of the patient and have reviewed the HENRIETTA Note. I performed a substantive portion of the visit including all aspects of the following. My anderson findings include: History: Patient presents with head injury that occurred today. Patient states he was walking to the parking lot when he stepped in a pothole and fell. Patient hit his head. Patient denies any loss of consciousness. Patient was able to stand after the fall. Patient is on apixaban. Patient also complains of bilateral knee pain. Patient also admits to pain in his right shoulder. Patient denies any other injuries. Exam: Vital signs are stable. Patient is afebrile. Patient is in no acute distress. There is mild tenderness over the right shoulder. There is good range of motion. There is no obvious deformity noted. There is mild tenderness over the anterior knees bilaterally, slightly worse on the right. There is good range of motion. Extensor mechanism is intact. There are superficial abrasions. There is no active bleeding noted. There is a 3 cm full-thickness linear laceration above the right eyebrow. There is no bleeding. There are no foreign bodies noted. There is moderate gapping of the wound margins. There is no bony crepitance or step-off. Cranial nerves II through XII are intact. Strength is 5/5 bilaterally upper and lower extremities. There are no sensory deficits noted. Medical Decision Making: Since the patient is on apixaban, CT scan of the brain will be obtained to assess for intracranial bleeding. CT scan of the cervical spine will be obtained to assess for cervical spine fracture. X-rays of the knees will be obtained to assess for fracture and effusion. X-rays of the right shoulder will be obtained to assess for fracture and dislocation. X-rays of the right shoulder were reviewed. On my interpretation, there is no acute fracture or dislocation. There is no soft tissue swelling. Radiologist also interpreted the x-rays and agrees. X-rays of the right knee were obtained. There are 4 views. On my interpretation, there is a total knee replacement noted. There is no acute fracture or dislocation. There is no effusion noted. Radiologist also interpreted the x-rays and agrees. X-rays of the left knee were obtained. There are 4 views. On my interpretation, there is no acute fracture or dislocation. There are some degenerative changes noted. There is no effusion noted. Radiologist also interpreted the x-rays and agrees. CT scan of the brain was obtained. There is no acute intracranial bleeding or abnormality. This was interpreted by the radiologist and was also independently reviewed by myself. CT scan of the cervical spine was obtained. There is no acute fracture or subluxation. There is no soft tissue swelling. This was interpreted by the radiologist and was also independently reviewed by myself. The eyebrow laceration was cleaned and irrigated with copious amounts normal saline. The laceration was closed with 5 simple interrupted Ethilon sutures under sterile technique. This was performed by the HENRIETTA under my supervision. Patient tolerated procedure well. Patient was instructed to follow-up with his primary care physician in 5 to 7 days. Patient understood and was agreeable with the plan. All questions were answered. Discharge Plan Triage Chief Complaint: Head Injury Other Complaint: Laceration ED Midlevel Provider: iRn Mendes ED Provider: Emil Salgado Dx/Rx/DC Orders Clinical Impression: Head injury, Contusion of finger, Contusion of knee, left, Contusion of knee, right, Laceration, Fall, Right shoulder pain Instructions: ED Head Injury (Adult), ED Laceration: All Closures, ED RICE Prescriptions: No Action metoprolol succinate 25 mg tablet extended release 24 hr 12.5 mg PO DAILY albuterol sulfate 90 mcg/actuation HFA aerosol inhaler 2 puff inhalation Q6H PRN (Reason: SOB) potassium chloride 10 mEq capsule, extended release 10 meq PO BID zinc 50 mg tablet 50 mg PO DAILY cholecalciferol (vitamin D3) 25 mcg (1,000 unit) tablet 25 mcg PO DAILY mirtazapine 7.5 mg tablet 7.5 mg PO QHS budesonide [Pulmicort] 0.5 mg/2 mL suspension for nebulization 0.5 mg inhalation DAILY Rx Instructions: Takes with albuterol nebulizer daily albuterol sulfate 2.5 mg /3 mL (0.083 %) solution for nebulization 2.5 mg inhalation DAILY Rx Instructions: Takes with pulmicort nebulizer daily furosemide 40 mg tablet 40 mg PO .COMPLEX Rx Instructions: 40 mg orally Take 2 tablets QAM, 1 tablet QPM; spironolactone 25 mg tablet 25 mg PO DAILY Qty: 90 3RF aspirin 81 mg tablet,delayed release (DR/EC) See Rx Instructions .ROUTE .COMPLEX Rx Instructions: TAKE 1 TABLET EVERY DAY Eliquis 2.5 mg tablet 2.5 mg PO BID Qty: 60 11RF Primary Care Provider: Justin Leavitt Referrals: Justin Leavitt MD [Primary Care Provider] - 3-5 Days Activity Restrictions/Additional Instructions: Have sutures removed in 4 to 5 days. Keep an eye out for any signs of infection such as redness, swelling, pus-like discharge. Please follow-up with your PCP. Disposition Disposition: Home, Self Care Discharge Date/Time: 04/28/22 16:46
--- NOTE | 2022-04-28 14:55 | RAD_ITS ---
STUDY: X-RAY - RIGHT SHOULDER REASON FOR EXAM: Male, 87 years old. Fall, shoulder pain TECHNIQUE: 3 view(s) of the shoulder. COMPARISON: None. FINDINGS: There is mild degenerative arthrosis of the glenohumeral articulation. Normal acromioclavicular joint. Normal acromion. Normal humeral head and visualized proximal humerus. The soft tissue structures are unremarkable. A right-sided junior catheter seen with the tip in the superior vena cava. RAD/Shoulder min 2 Views IMPRESSION: No acute abnormality is seen. Electronically Signed: Dionisio Mason MD at 15:19 EST ,
--- NOTE | 2022-04-28 14:55 | RAD_ITS ---
STUDY: X-RAY - RIGHT KNEE REASON FOR EXAM: Male, 87 years old. FALL, PAIN TECHNIQUE: 4 view(s) of the knee. COMPARISON: None. FINDINGS: Normal visualized distal femur. Normal visualized proximal tibia and fibula. Normal proximal tibiofibular articulation. The patient is status post total knee replacement. There is good alignment. There are atherosclerotic calcifications. RAD/Knee 4 or More Views IMPRESSION: Status post total knee replacement. No acute abnormality is seen. Electronically Signed: Dionisio Mason MD at 15:17 EST ,
--- NOTE | 2022-04-28 14:55 | RAD_ITS ---
STUDY: X-RAY - LEFT KNEE REASON FOR EXAM: Male, 87 years old. Fall, pain TECHNIQUE: 4 view(s) of the knee. COMPARISON: None. FINDINGS: Normal visualized distal femur. Normal visualized proximal tibia and fibula. Normal proximal tibiofibular articulation. There is severe degenerative arthrosis of the medial femorotibial compartment with severe joint space narrowing. Normal lateral femorotibial compartment. There is moderate degenerative arthrosis of the patellofemoral articulation. There are atherosclerotic calcifications. RAD/Knee 4 or More Views IMPRESSION: Degenerative arthrosis. Electronically Signed: Dionisio Mason MD at 15:18 EST ,
[2022-04-28] MEDS: Lidocaine 1% (20 ml mdv) 20 ML Vial 10 ML INFILT (15:37)
== END 2022-04-28 16:46 | disposition home or self-care (01) ==
PROVIDERS: Emergency Provider Emergency Medicine; PCP Internal Medicine; Visit Provider Emergency Medicine
DX: S01.112A Laceration without foreign body of left eyelid and periocular area, initial encounter (principal); I11.0 Hypertensive heart disease with heart failure; I50.42 Chronic combined systolic (congestive) and diastolic (congestive) heart failure; I48.91 Unspecified atrial fibrillation; Z87.891 Personal history of nicotine dependence; M25.511 Pain in right shoulder; S80.211A Abrasion, right knee, initial encounter; S80.02XA Contusion of left knee, initial encounter; E78.5 Hyperlipidemia, unspecified; I25.10 Atherosclerotic heart disease of native coronary artery without angina pectoris; S60.00XA Contusion of unspecified finger without damage to nail, initial encounter; S09.90XA Unspecified injury of head, initial encounter; S80.01XA Contusion of right knee, initial encounter; Z79.01 Long term (current) use of anticoagulants; W19.XXXA Unspecified fall, initial encounter
CPT/HCPCS: 12013; 70450; 72125; 73030; 73564; 99283

== ENCOUNTER 2023-05-23 16:45 | Emergency (ER) | payer MEDICARE, OTHER, SELFPAY ==
[2023-05-23 16:46] VITALS: BP 109/72; PULSE 56; RESP 18; TEMP 36; O2SAT 100; BMI 24.2
--- NOTE | 2023-05-23 17:04 | CT_ITS ---
STUDY: CT CERVICAL SPINE WITHOUT CONTRAST REASON FOR EXAM: Male, 88 years old. trauma RADIATION DOSAGE (If Supplied By Facility): CTDIvol = ( 16.47 ) mGy, DLP = ( 311.51 ) mGycm TECHNIQUE: High resolution transaxial imaging was performed without contrast material. Sagittal and coronal images were reconstructed. Individualized dose optimization techniques were used for this CT. COMPARISON: April 28, 2022 FINDINGS: Normal craniovertebral junction. Normal anterior atlantoaxial articulation. Normal odontoid process. Normal cervical lordosis. Normal vertebral bodies and posterior osseous elements. C2-3: Normal endplates. Normal disc height and morphology. Normal central canal and intervertebral neuroforamina. C3-4: Normal endplates. Normal disc height and morphology. Normal central canal and intervertebral neuroforamina. C4-5: Anterior endplate spurring.. Normal disc height and morphology. Normal central canal and intervertebral neuroforamina. C5-6: Anterior endplate spurring. Normal disc height and morphology. Normal central canal and intervertebral neuroforamina. C6-7: Anterior endplate spurring.. Normal disc height and morphology. Normal central canal and intervertebral neuroforamina. C7-T1: Normal endplates. Normal disc height and morphology. Normal central canal and intervertebral neuroforamina. Normal visualized soft tissue structures. CT/Spine Cervical without Contras IMPRESSION: Spondylosis.. No acute fracture or other significant abnormality. Electronically Signed: Wagner Najera MD at 17:53 EDT ,
--- NOTE | 2023-05-23 17:04 | CT_ITS ---
STUDY: CT BRAIN WITHOUT CONTRAST REASON FOR EXAM: Male, 88 years old. trauma RADIATION DOSAGE (If Supplied By Facility): CTDIvol = ( 44.99 ) mGy, DLP = ( 779.24 ) mGycm TECHNIQUE: Transaxial CT imaging of the brain was performed without administration of intravenous contrast material. Individualized dose optimization techniques were used for this CT. COMPARISON: April 28, 2022. FINDINGS: Normal soft tissue structures. Normal calvarium. Calcific plaquing of the cavernous carotids Mild atrophy and periventricular white matter ischemic change.. Possible tiny old right lacunar infarct versus perivascular space . Normal brainstem. Normal cerebellum. There is no intracranial hemorrhage. There are no findings of an acute ischemic infarction. Mucosal thickening of the right sphenoid sinus. Postsurgical changes of the orbits CT/Brain/Head without Contrast IMPRESSION: Mild atrophy and periventricular white matter ischemic change. No acute intracranial hemorrhage. Electronically Signed: Wagner Najera MD at 17:50 EDT ,
--- NOTE | 2023-05-23 17:13 | EX.ED.GENINJ ---
HPI History of Present Illness Chief Complaint: Fall Informant: patient Narrative Narrative: Patient presents after a fall at home. He lost his balance while walking with his cane and stumbled backwards hitting a cement wall. Then fell to the ground. He has a small abrasion on the back of his scalp. He denies headache or neck pain at this time. Patient is on Eliquis chronically secondary to atrial fibrillation. Patient also has a skin tear to the left forearm. He denies bony tenderness to this area. He did get up and walk after the fall and he denied any hip or leg pain. [facility] Medical History Alcohol use Atherosclerosis of coronary artery of [place] heart without angina pectoris Atrial flutter Bilateral pleural effusion (11/25/21) Carpal tunnel syndrome of right wrist Change in bowel habit Chronic anticoagulation Chronic combined systolic and diastolic CHF (congestive heart failure) Colon polyps COVID (11/2021) Diverticulosis Dysphagia Esophageal diverticulum Essential (primary) hypertension History of colonic polyps History of lymphoma Hyperlipidemia Hypokalemia Immunosuppressed status Ischemic cardiomyopathy Longstanding persistent atrial fibrillation Lymphoma Non-rheumatic mitral regurgitation Nonrheumatic mitral (valve) prolapse Nonsustained supraventricular tachycardia (08/2019) Obstructive sleep apnea 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) Paroxysmal atrial fibrillation Pleural disease Pneumonia (11/25/21) Rectal bleeding Secondary pulmonary arterial hypertension Squamous carcinoma Home Medications metoprolol succinate 25 mg tablet,extended release 24 hr 12.5 mg PO DAILY bp 10/15/19 [History Last Taken 11/22/21] albuterol sulfate 2.5 mg/3 mL (0.083 %) solution for nebulization 2.5 mg inhalation DAILY 04/25/22 [History Last Taken Unknown] budesonide 0.5 mg/2 mL suspension for nebulization (Pulmicort) 0.5 mg inhalation DAILY 04/25/22 [History Last Taken Unknown] cholecalciferol (vitamin D3) 25 mcg (1,000 unit) tablet 25 mcg PO DAILY 04/25/22 [History Last Taken Unknown] zinc 50 mg tablet 50 mg PO DAILY 04/25/22 [History Last Taken Unknown] spironolactone 25 mg tablet 25 mg PO DAILY #90 tabs 05/19/22 [Rx Last Taken Unknown] sertraline 100 mg tablet 100 mg PO DAILY 01/16/23 [History Last Taken Unknown] furosemide 40 mg tablet 40 mg PO .COMPLEX awaiting mail order RX #90 tabs 01/24/23 [Rx Last Taken Unknown] apixaban 2.5 mg tablet (Eliquis) 2.5 mg PO BID #180 tabs 04/23/23 [Rx Last Taken Unknown] aspirin 81 mg tablet,delayed release See Rx Instructions .Route .COMPLEX #90 TABLETS 04/23/23 [Rx Last Taken Unknown] potassium chloride 10 mEq capsule,extended release 10 meq PO BID Cannot swallow tablets, capsules are ok. #180 caps 04/23/23 [Rx Last Taken Unknown] Allergy/AdvReac Type Severity Reaction Status Date / Time ramipril Allergy Intermediate cough Verified 05/23/23 16:48 Family History Father , age 72 CVA (cerebral vascular accident) Mother , age 69 Diabetes CHF (congestive heart failure) Other Family history of CVA Surgical History H/O coronary artery bypass surgery (06/25/09) History of carpal tunnel release History of coronary artery stent placement (05/12/14) History of thoracic surgery Knee joint replacement status Social History Smoking Status: Former smoker how long ago did patient quit smokin years ago alcohol intake: current alcohol intake frequency: a few times a week substance use type: does not use caffeine: Yes what type of physical activity do you participate in: none frequency: does not exercise ROS ROS ED Constitutional Constitutional ED: Denies chills or fever(s) Eyes Eyes: Denies discharge from eye(s) ENT ENT ED: Denies discharge from eye(s), rhinorrhea or sore throat Cardiovascular Cardiovascular: Denies chest pain or palpitations Respiratory/Chest Respiratory/Chest: Denies cough or dyspnea Gastrointestinal Gastrointestinal: Denies abdominal pain, nausea or vomiting Musculoskeletal Musculoskeletal: Reports extremity pain; Denies back pain Integumentary Reports Abrasions; Denies rash Neurologic Neurologic: Denies headache(s) or weakness Allergic/Immunologic Allergic/Immunologic ED: Denies lip swelling or urticaria EXAM Physical Exam Const Vital Signs: 05/23/23 16:46 05/23/23 16:52 05/23/23 19:14 Temperature 96.8 F L 97.5 F L Temperature Source Temporal Pulse Rate 56 L 56 L Respiratory Rate 18 18 Respiratory Effort Normal Non-Labored Respiratory Depth Normal Respiratory Pattern Normal Blood Pressure 109/72 120/81 H Blood Pressure Mean 84 94 Pulse Ox 100 96 Oxygen Delivery Method Room Air Room Air 05/23/23 18:00 Temperature Temperature Source Pulse Rate Respiratory Rate 18 Respiratory Effort Respiratory Depth Respiratory Pattern Blood Pressure 120/81 H Blood Pressure Mean 93 Pulse Ox 96 Oxygen Delivery Method Positive well nourished and well developed General Appearance ED: well developed HEENT HEENT Narrative: Small abrasion to the posterior scalp along the midline parietal region. No active bleeding. No underlying hematoma. Eyes EOMs intact bilaterally Neck full ROM Neck Narrative: No C-spine tenderness. Chest Wall inspection of chest normal and palpation of chest normal Resp normal respiratory effort and clear to auscultation bilaterally Cardio regular rhythm Rate: regular rate GI non-tender Palpation: soft Extremity Extremity Narrative: 3 cm linear skin tear noted to the left elbow. Bleeding well-controlled. Full range of motion of the elbow without difficulty. No tenderness to palpation over the lower extremities. No pain with logroll. Neuro oriented x3 and moves all extremities Skin Skin Narrative: Abrasion/skin tear as noted above. MDM MDM MDM Narrative Medical decision making narrative: Patient sent for CT imaging of the head and C-spine given his fall and anticoagulation. Left elbow wound to be cleansed and sealed with Steri-Strips. Radiography Diagnostic Testing: Clinical Impression(s) from Imaging Studies Brain CT 05/23/23 17:04 IMPRESSION: Mild atrophy and periventricular white matter ischemic change. No acute intracranial hemorrhage. Electronically Signed: Wagner Najera MD at 17:50 EDT , Cervical Spine CT 05/23/23 17:04 IMPRESSION: Spondylosis.. No acute fracture or other significant abnormality. Electronically Signed: Wagner Najera MD at 17:53 EDT , Treatment and Re-Evaluation Narrative: Left elbow wound is cleansed. Steri-Strips were placed across the wound and dressing applied. Scalp laceration/wound is better cleansed. He actually has 2 separate lacerations, 1 measuring 1 cm and 1 measuring about 2.5 cm. 2 cc of 1% lidocaine with epinephrine are infused to the 2 lacerations. The 1 cm laceration is closed with 1 simple staple. The 2.5 cm laceration is closed with 3 aleshia. Bleeding is well-controlled. We were able to get the patient up and ambulate him with a walker which does give him more stability. We have 1 here that we can discharge him with. Patient to follow-up with his primary care physician in 5 to 7 days for staple removal. Return instructions given. Discharge Plan Triage Chief Complaint: Fall ED Provider: Elvira Hayes Dx/Rx/DC Orders Clinical Impression: Fall, Chronic anticoagulation, Laceration of scalp, Skin tear Instructions: ED Head Injury (Adult), ED Laceration, All Closures, ED Fall Prevention Prescriptions: No Action metoprolol succinate 25 mg tablet extended release 24 hr 12.5 mg PO DAILY zinc 50 mg tablet 50 mg PO DAILY cholecalciferol (vitamin D3) 25 mcg (1,000 unit) tablet 25 mcg PO DAILY budesonide [Pulmicort] 0.5 mg/2 mL suspension for nebulization 0.5 mg inhalation DAILY Rx Instructions: Takes with albuterol nebulizer daily albuterol sulfate 2.5 mg /3 mL (0.083 %) solution for nebulization 2.5 mg inhalation DAILY Rx Instructions: Takes with pulmicort nebulizer daily sertraline 100 mg tablet 100 mg PO DAILY spironolactone 25 mg tablet 25 mg PO DAILY Qty: 90 3RF furosemide 40 mg tablet 40 mg PO .COMPLEX Qty: 90 1RF Rx Instructions: 40 mg orally Take 2 tablets QAM, 1 tablet QPM; Eliquis 2.5 mg tablet 2.5 mg PO BID Qty: 180 3RF aspirin 81 mg tablet,delayed release (DR/EC) See Rx Instructions .ROUTE .COMPLEX Qty: 90 3RF Dose Instruction: TAKE 1 TABLET EVERY DAY Rx Instructions: TAKE 1 TABLET EVERY DAY potassium chloride 10 mEq capsule, extended release 10 meq PO BID Qty: 180 3RF Primary Care Provider: Justin Leavitt Referrals: Justin Leavitt MD [Primary Care Provider] - 5 Days for suture removal Activity Restrictions/Additional Instructions: Follow-up with your doctor in 5 to 7 days to have your aleshia removed. Disposition Disposition: Home, Self Care Discharge Date/Time: 05/23/23 19:16
[2023-05-23 18:00] VITALS: BP 120/81; RESP 18; O2SAT 96
[2023-05-23] MEDS: Lidocaine 1% /Epi 1:100 (20ml) 20 ML Vial INFILT (18:12)
[2023-05-23 19:14] VITALS: BP 120/81; PULSE 56; RESP 18; TEMP 36.4; O2SAT 96
== END 2023-05-23 19:16 | disposition home or self-care (01) ==
PROVIDERS: Emergency Provider Emergency Medicine; PCP Internal Medicine; Visit Provider Emergency Medicine
DX: S01.01XA Laceration without foreign body of scalp, initial encounter (principal); I50.42 Chronic combined systolic (congestive) and diastolic (congestive) heart failure; I11.0 Hypertensive heart disease with heart failure; I48.0 Paroxysmal atrial fibrillation; S51.012A Laceration without foreign body of left elbow, initial encounter; S51.812A Laceration without foreign body of left forearm, initial encounter; W01.198A Fall on same level from slipping, tripping and stumbling with subsequent striking against other object, initial encounter; Y92.009 Unspecified place in unspecified non-institutional (private) residence as the place of occurrence of the external cause; Y93.01 Activity, walking, marching and hiking; Z79.01 Long term (current) use of anticoagulants; Z79.82 Long term (current) use of aspirin; Z79.899 Other long term (current) drug therapy; Z87.891 Personal history of nicotine dependence
CPT/HCPCS: 12002; 70450; 72125; 99282

== ENCOUNTER 2023-07-13 09:16 | Emergency (ER) | payer MEDICARE, OTHER, SELFPAY ==
[2023-07-13 09:16] VITALS: BP 136/84; PULSE 88; RESP 17; TEMP 36; O2SAT 93
--- NOTE | 2023-07-13 10:31 | EX.ED.DYSGE1 ---
HPI History of Present Illness Chief Complaint: Wound Check Narrative Narrative: 88-year-old male presenting with bleeding from his postoperative wound. 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 He has multiple subcutaneous stitches in 6 to the left side of his face. He is on Eliquis and aspirin and was not told to hold these. Surgery was done on Sunday and the patient states he was post to take off his dressing on Sunday but is bleeding through it today. His tried pressure and ice and could not get it stopped bleeding. She tried to call the [facility] line and did not receive a call back from the surgeon so she came to the ER. Patient not have any pain. He did hold his Eliquis and aspirin today. 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) Chronic anticoagulation History of colonic polyps Change in bowel habit Rectal bleeding Secondary pulmonary arterial hypertension Carpal tunnel syndrome of right wrist Non-rheumatic mitral regurgitation Paroxysmal atrial fibrillation Essential (primary) hypertension Ischemic cardiomyopathy Atherosclerosis of coronary artery of [place] heart without angina pectoris Nonrheumatic mitral (valve) prolapse Obstructive sleep apnea Diverticulosis Colon polyps Hyperlipidemia Immunosuppressed status Atrial flutter Lymphoma Home Medications ?Medication ?Instructions ?Recorded ?Last Taken ?Type budesonide 0.5 mg/2 mL suspension 0.5 mg inhalation DAILY 04/25/22 Unknown History for nebulization (Pulmicort) cholecalciferol (vitamin D3) 25 25 mcg PO DAILY 04/25/22 Unknown History mcg (1,000 unit) tablet zinc 50 mg tablet 50 mg PO DAILY 04/25/22 Unknown History spironolactone 25 mg tablet 25 mg PO DAILY #90 tabs 05/19/22 Unknown Rx apixaban 2.5 mg tablet (Eliquis) 2.5 mg PO BID #180 tabs 04/23/23 Unknown Rx potassium chloride 10 mEq 10 meq PO BID Cannot swallow 04/23/23 Unknown Rx capsule,extended release tablets, capsules are ok. #180 caps aspirin 81 mg tablet,delayed See Rx Instructions .Route 06/07/23 Unknown Rx release .COMPLEX #90 TABLETS furosemide 40 mg tablet 40 mg PO .COMPLEX #90 tabs 06/08/23 Unknown Rx metoprolol succinate 25 mg 12.5 mg (1/2 x 25 mg) PO DAILY bp 06/08/23 Unknown Rx tablet,extended release 24 hr #15 tabs sertraline 100 mg tablet (Zoloft) 100 mg PO DAILY 06/19/23 Unknown History sertraline 50 mg tablet (Zoloft) 50 mg PO DAILY 06/19/23 Unknown History Allergy/AdvReac Type Severity Reaction Status Date / Time ramipril Allergy Intermediate cough Verified 06/19/23 13:18 Family History Father , age 72 CVA (cerebral vascular accident) Mother , age 69 Diabetes CHF (congestive heart failure) Other Family history of CVA Surgical History Knee joint replacement status History of carpal tunnel release History of coronary artery stent placement (05/12/14) H/O coronary artery bypass surgery (06/25/09) History of thoracic surgery Social History Smoking Status: Former smoker how long ago did patient quit smokin years ago alcohol intake: current alcohol intake frequency: a few times a week substance use type: does not use caffeine: Yes what type of physical activity do you participate in: none frequency: does not exercise ROS ROS ED Constitutional Constitutional ED: Denies chills, fever(s) or sweats Eyes Eyes: Denies blurry vision or change in vision ENT ENT ED: Denies ear pain or sore throat Cardiovascular Cardiovascular: Denies chest pain, palpitations or racing heartbeat Respiratory/Chest Respiratory/Chest: Denies cough, dyspnea or sputum Gastrointestinal Gastrointestinal: Denies abdominal pain, constipation, diarrhea, nausea or vomiting Genitourinary Genitourinary ED: Denies dysuria, hematuria or urinary frequency Musculoskeletal Musculoskeletal: Denies arthralgias, myalgias or neck pain Integumentary Reports other Details: Surgical wound to left side of face with slight weeping of blood ; Denies abscess, Abrasions or rash Neurologic Neurologic: Denies headache(s), paresthesias or weakness Psychiatric Psychiatric: Denies anxiety, depression, suicidal ideation or suicidal thoughts Endocrine Endocrinology: Denies polydipsia or polyuria EXAM Physical Exam Const Vital Signs: 07/13/23 09:16 Temperature 96.8 F L Temperature Source Temporal Pulse Rate 88 Respiratory Rate 17 Blood Pressure 136/84 H Blood Pressure Mean 101 Pulse Ox 93 Positive well nourished HEENT Reports moist mucous membranes Eyes PERRL and EOMs intact bilaterally Resp normal respiratory effort Cardio regular rate and regular rhythm Neuro oriented x3 and CN's II-XII intact bilaterally Sensorium / Orientation: alert Skin Skin Narrative: There is a surgical scar to the left she started on the zygoma horizontally and then down to the left and an angle with sutures in place and good approximation of the wound margins there is controlled bleeding and there is minimal weeping from the wound. There is no fluctuance. There is no evidence of cellulitis. Nontender to palpation. MDM MDM MDM Narrative Medical decision making narrative: Patient presenting with bleeding postoperative wound. The bleeding has slowed down significantly and Surgifoam was applied to the wound and a dressing was placed over this to help control the bleeding. Will monitor him to make sure he does not bleed through the dressing or require any other intervention. Patient did have some more bleeding and the dressing was reinforced with more surgery and an ABD pressure dressing with an Ozzy wrap around the head and this did control the bleeding pretty substantially. Patient felt as if he could go home at this point. I recommend that they call her surgeon for follow-up. Patient and stated that they did hold her Eliquis today and aspirin. Impression: 1. Postop wound check?bleeding Discharge Plan Triage Chief Complaint: Wound Check ED Provider: Jose Edwards Dx/Rx/DC Orders Instructions: ED Post Op Wound Check, Bleeding Prescriptions: No Action zinc 50 mg tablet 50 mg PO DAILY cholecalciferol (vitamin D3) 25 mcg (1,000 unit) tablet 25 mcg PO DAILY budesonide [Pulmicort] 0.5 mg/2 mL suspension for nebulization 0.5 mg inhalation DAILY Rx Instructions: Takes with albuterol nebulizer daily sertraline [Zoloft] 100 mg tablet 100 mg PO DAILY sertraline [Zoloft] 50 mg tablet 50 mg PO DAILY spironolactone 25 mg tablet 25 mg PO DAILY Qty: 90 3RF Eliquis 2.5 mg tablet 2.5 mg PO BID Qty: 180 3RF potassium chloride 10 mEq capsule, extended release 10 meq PO BID Qty: 180 3RF aspirin 81 mg tablet,delayed release (DR/EC) See Rx Instructions .ROUTE .COMPLEX Qty: 90 3RF Dose Instruction: TAKE 1 TABLET EVERY DAY Rx Instructions: TAKE 1 TABLET EVERY DAY furosemide 40 mg tablet 40 mg PO .COMPLEX Qty: 90 0RF Rx Instructions: 40 mg orally Take 2 tablets QAM, 1 tablet QPM; metoprolol succinate 25 mg tablet extended release 24 hr 12.5 mg PO DAILY Qty: 15 0RF Primary Care Provider: Justin Leavitt Referrals: Justin Leavitt MD [Primary Care Provider] - Print Language: [place] Disposition Disposition: Home, Self Care
[2023-07-13 11:16] VITALS: BP 134/72; PULSE 62; RESP 14; O2SAT 100
[2023-07-13 12:25] VITALS: BP 134/84; PULSE 61; RESP 16; TEMP 36.7; O2SAT 99
== END 2023-07-13 12:27 | disposition home or self-care (01) ==
PROVIDERS: Emergency Provider Student in an Organized Health Care Education/Training Program; PCP Internal Medicine; Visit Provider Student in an Organized Health Care Education/Training Program
DX: L76.21 Postprocedural hemorrhage of skin and subcutaneous tissue following a dermatologic procedure (principal); I50.42 Chronic combined systolic (congestive) and diastolic (congestive) heart failure; I11.0 Hypertensive heart disease with heart failure; I48.0 Paroxysmal atrial fibrillation; I25.10 Atherosclerotic heart disease of native coronary artery without angina pectoris; Z87.891 Personal history of nicotine dependence; Z79.01 Long term (current) use of anticoagulants; Z79.82 Long term (current) use of aspirin
CPT/HCPCS: 99282

== ENCOUNTER 2023-11-08 08:25 | Emergency (ER) | payer MEDICARE, OTHER, SELFPAY ==
[2023-11-08 08:26] VITALS: BP 120/73; PULSE 86; RESP 16; TEMP 35.9; O2SAT 98; BMI 23.1
--- NOTE | 2023-11-08 08:49 | CT_ITS ---
STUDY: CT BRAIN WITHOUT CONTRAST REASON FOR EXAM: Male, 88 years old. Head trauma due to a fall. RADIATION DOSAGE (If Supplied By Facility): CTDIvol = ( 44.99 ) mGy, DLP = ( 829.85 ) mGycm TECHNIQUE: Transaxial CT imaging of the brain was performed without administration of intravenous contrast material. Individualized dose optimization techniques were used for this CT. COMPARISON: Comparison is made with prior examination May 23, 2023. FINDINGS: Normal soft tissue structures. Normal calvarium. There is mild cerebral atrophy with widening of the extra-axial spaces and ventricular dilatation. There are areas of decreased attenuation within the white matter tracts of the supratentorial brain, consistent with microvascular disease changes. There are small punctate calcifications of the basal ganglia which are seen in the aging brain as a normal variant. Normal brainstem. Normal cerebellum. There is no intracranial hemorrhage. There are no findings of an acute ischemic infarction. Atherosclerotic calcification of the cavernous portions of the internal carotid arteries bilaterally. There is opacification of the right sphenoid sinus. CT/Brain/Head without Contrast IMPRESSION: Chronic involutional changes of the brain. Opacification of the right sphenoid sinus. Electronically Signed: Dionisio Mason MD at 9:46 EDT ,
--- NOTE | 2023-11-08 08:50 | CT_ITS ---
STUDY: CT CERVICAL SPINE WITHOUT CONTRAST REASON FOR EXAM: Male, 88 years old. Trauma RADIATION DOSAGE (If Supplied By Facility): CTDIvol = ( 19.38 ) mGy, DLP = ( 390.72 ) mGycm TECHNIQUE: High resolution transaxial imaging was performed without contrast material. Sagittal and coronal images were reconstructed. Individualized dose optimization techniques were used for this CT. COMPARISON: Comparison is made with prior study dated May 23, 2023. FINDINGS: Normal craniovertebral junction. There are degenerative changes of the anterior atlantoaxial articulation. Normal odontoid process. Normal cervical lordosis. Normal vertebral bodies and posterior osseous elements. C2-3: Facet joint osteoarthritis and hypertrophy. Uncovertebral arthrosis. No significant neural foraminal stenosis is seen. C3-4: Mild degree of disc space narrowing. Facet joint osteoarthritis and hypertrophy worse on the left side. Bilateral neural foraminal stenosis worse on the left. C4-5: The disc spaces well maintained. There is evidence of facet joint osteoarthritis and hypertrophy with bilateral neural foraminal stenosis worse on the right side. Uncovertebral arthrosis. C5-6: Mild degree of disc space narrowing. Minimal anterior listhesis of C5 on C6 most likely secondary to the facet joint osteoarthritis and hypertrophy. Spondylosis. Uncovertebral arthrosis with bilateral neural foraminal stenosis worse on the right side. C6-7: Mild degree of disc space narrowing. Spondylosis. No significant neural foraminal stenosis is seen. C7-T1: Normal endplates. Normal disc height and morphology. Normal central canal and intervertebral neuroforamina. Atherosclerotic calcification of the carotid bifurcations bilaterally. CT/Spine Cervical without Contras IMPRESSION: Multilevel degenerative changes, as described above. Electronically Signed: Dionisio Mason MD at 9:49 EDT ,
--- NOTE | 2023-11-08 09:02 | EDS_ITS ---
HPI History of Present Illness Chief Complaint: Head Injury Narrative Narrative: Chief complaint and HPI: Fall. 88-year-old male with history of atrial fibrillation on Eliquis, chronic left knee arthritis presents for evaluation of mechanical fall. Patient states that his left knee periodically gives him trouble in which it gives out on him. He states that it gave out on him earlier this morning and he fell backwards. He has bilateral skin tears to the arms. Has an abrasion to the posterior scalp. Did hit his head. Denies LOC. Denies fever, chills, syncope, lightheadedness, headache, vision changes, nausea, vomiting, chest pain, shortness of breath, abdominal pain, natalie k/neck/extremity pain. Review of systems: See HPI Medications: As listed on the chart Allergies: As listed on the chart PFSH: Per chart Vital signs: As listed on the chart. Reviewed. Physical exam: Gen: A&O x3, NAD Head: Normocephalic, hematoma with skin abrasion to the posterior scalp Eyes: No sclera icterus, conjunctiva clear, PERRL, EOMI ENT: No louis signs or raccoon eyes. Moist mucous membranes. No nasal septal hematoma, no facial tenderness. Neck: Trachea midline, No JVD, Nontender CV: RRR, no murmurs, no chest wall TTP Resp: Lungs CTA BL, no w/r/c GI: Abd soft, non-distended, non-tender, no r/r/g Musc: Full ROM, no deformity, no spinal TTP, no julian step-offs Skin: Warm, skin tear to the left and right upper extremity Neuro: Alert, oriented, grossly intact, sensation intact, GCS 15 Psych: Cooperative, appropriate mood and affect [facility] Medical History (Updated 11/08/23 @ 09:[address] 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) Chronic anticoagulation History of colonic polyps Change in bowel habit Rectal bleeding Secondary pulmonary arterial hypertension Carpal tunnel syndrome of right wrist Non-rheumatic mitral regurgitation Paroxysmal atrial fibrillation Essential (primary) hypertension Ischemic cardiomyopathy Atherosclerosis of coronary artery of [place] heart without angina pectoris Nonrheumatic mitral (valve) prolapse Obstructive sleep apnea Diverticulosis Colon polyps Hyperlipidemia Immunosuppressed status Atrial flutter Lymphoma Home Medications ?Medication ?Instructions ?Recorded ?Last Taken ?Type budesonide 0.5 mg/2 mL suspension 0.5 mg inhalation DAILY 04/25/22 Unknown Histo ry for nebulization (Pulmicort) cholecalciferol (vitamin D3) 25 25 mcg PO DAILY 04/25/22 Unknown History mcg (1,000 unit) tablet zinc 50 mg tablet 50 mg PO DAILY 04/25/22 Unknown History potassium chloride 10 mEq 10 meq PO BID Cannot swallow 04/23/23 Unknown Rx capsule,extended release tablets, capsules are ok. #180 caps sertraline 100 mg tablet (Zoloft) 100 mg PO DAILY 06/19/23 Unknown History sertraline 50 mg tablet (Zoloft) 50 mg PO DAILY 06/19/23 Unknown History apixaban 2.5 mg tablet (Eliquis) 2.5 mg PO BID #180 tabs 08/23/23 Unknown Rx aspirin 81 mg tablet,delayed See Rx Instructions .Route 08/23/23 Unknown Rx release .COMPLEX #90 TABLETS spironolactone 25 mg tablet 25 mg PO DAILY #90 tabs 08/23/23 Unknown Rx furosemide 40 mg tablet 40 mg PO .COMPLEX awaiting mail 10/22/23 Unknown Rx order prescription, pt is OUT of med #30 tabs metoprolol succinate 25 mg 12.5 mg (1/2 x 25 mg) PO DAILY 10/22/23 Unknown Rx tablet,extended release 24 hr Awaiting Mail Order RX: pt is OUT of med #7 tabs Allergy/AdvReac Type Severity Reaction Status Date / Time ramipril Allergy Intermediate cough Verified 11/08/23 08:26 Family History Father , age 72 CVA (cerebral vascular accident) Mother , age 69 Diabetes CHF (congestive heart failure) Other Family history of CVA Surgical History Knee joint replacement status History of carpal tunnel release History of coronary artery stent placement (05/12/14) H/O coronary artery bypass surgery (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) History of thoracic surgery Social History Smoking Status: Former smoker how long ago did patient quit smokin years ago alcohol intake: current alcohol intake frequency: a few times a week substance use type: does not use caffeine: Yes what type of physical activity do you participate in: none frequency: does not exercise EXAM Physical Exam Const Vital Signs: 11/08/23 08:26 Temperature 96.7 F L Temperature Source Temporal Pulse Rate 86 Respiratory Rate 16 Blood Pressure 120/73 Blood Pressure Mean 88 Pulse Ox 98 Oxygen Delivery Method Room Air MDM MDM MDM Narrative Medical decision making narrative: 88-year-old male on [facility] who presents for evaluation of mechanical fall. Vitals are stable. Differential diagnosis includes is not limited to mechanical fall, head bleed, closed head injury, contusion, fracture. Patient states he had a pure mechanical fall. Denies any complaints. Had no LOC. Given patient's age and on CT head and neck ordered. I do not think any further imaging or laboratory workup is needed at this time. Skin tears were debrided of skin with suture scissors. Patient is up-to-date on tetanus. Wounds were cleaned and irrigated. Bacitracin applied and dressed. CT head and neck without any acute traumatic injury. and patient were updated of the results. Patient does have a walker at home. He was told to make sure he is using it today. Follow-up with PCP. Return precautions explained such as confusion, nausea, vomiting, neurological symptoms. and patient affirmed understanding. Impression: 1. Closed head injury 2. Scalp hematoma/abrasion 3. Mechanical fall 4. Skin tears Discharge Plan Triage Chief Complaint: Head Injury ED Provider: Howard Garcia Dx/Rx/DC Orders Clinical Impression: Closed head injury, Fall Instructions: ED Scalp Contusion, ED Head Injury (Adult) Prescriptions: No Action zinc 50 mg tablet 50 mg PO DAILY cholecalciferol (vitamin D3) 25 mcg (1,000 unit) tablet 25 mcg PO DAILY budesonide [Pulmicort] 0.5 mg/2 mL suspension for nebulization 0.5 mg inhalation DAILY Rx Instructions: Takes with albuterol nebulizer daily sertraline [Zoloft] 100 mg tablet 100 mg PO DAILY sertraline [Zoloft] 50 mg tablet 50 mg PO DAILY potassium chloride 10 mEq capsule, extended release 10 meq PO BID Qty: 180 3RF Eliquis 2.5 mg tablet 2.5 mg PO BID Qty: 180 3RF aspirin 81 mg tablet,delayed release (DR/EC) See Rx Instructions .ROUTE .COMPLEX Qty: 90 3RF Dose Instruction: TAKE 1 TABLET EVERY DAY Rx Instructions: TAKE 1 TABLET EVERY DAY spironolactone 25 mg tablet 25 mg PO DAILY Qty: 90 3RF furosemide 40 mg tablet 40 mg PO .COMPLEX Qty: 30 1RF Rx Instructions: 40 mg orally Take 2 tablets QAM, 1 tablet QPM; metoprolol succinate 25 mg tablet extended release 24 hr 12.5 mg PO DAILY Qty: 7 1RF Primary Care Provider: Justin Leavitt Referrals: Justin Leavitt MD [Primary Care Provider] - Print Language: Emirati Disposition Disposition: Home, Self Care
[2023-11-08 10:00] VITALS: BP 122/76; PULSE 84; RESP 18; TEMP 36.2; O2SAT 99
== END 2023-11-08 10:17 | disposition home or self-care (01) ==
PROVIDERS: Emergency Provider Surgery; PCP Internal Medicine; Visit Provider Surgery
DX: S00.03XA Contusion of scalp, initial encounter (principal); I11.0 Hypertensive heart disease with heart failure; I50.42 Chronic combined systolic (congestive) and diastolic (congestive) heart failure; I48.11 Longstanding persistent atrial fibrillation; S41.111A Laceration without foreign body of right upper arm, initial encounter; S41.112A Laceration without foreign body of left upper arm, initial encounter; S00.01XA Abrasion of scalp, initial encounter; W18.39XA Other fall on same level, initial encounter; I25.10 Atherosclerotic heart disease of native coronary artery without angina pectoris; I25.2 Old myocardial infarction; E78.5 Hyperlipidemia, unspecified; Z95.1 Presence of aortocoronary bypass graft; Z95.5 Presence of coronary angioplasty implant and graft; Z79.01 Long term (current) use of anticoagulants; Z79.82 Long term (current) use of aspirin; Z79.899 Other long term (current) drug therapy; Z86.16 Personal history of COVID-19; Z87.891 Personal history of nicotine dependence
CPT/HCPCS: 70450; 72125; 99283